=== PATIENT | female | born 1975 | race Caucasian/White ===

== ENCOUNTER 2017-03-06 12:21 | Observation (INO) | payer BC ==
[2017-03-06 13:26] LABS: Hematocrit 43 % (35-47); Hemoglobin 14.5 g/dl (12.0-16.0); Mean Corpuscular HGB Conc 34 g/dl (31-36); Mean Corpuscular Hemoglobin 30 pg (27-31); Mean Corpuscular Volume 88 fL (80-97); Mean Platelet Volume 10 um3 (7.4-10.4); Red Cell Distribution Width 13 % (10.5-15); White Blood Count 6.5 10^3/ul (3.5-10.8)
[2017-03-06 13:34] LABS: Urine Bilirubin Negative (Negative); Urine Glucose 3+(>=500 mg/dL) (Negative); Urine Nitrite Negative (Negative)
[2017-03-06 13:39] LABS: Albumin 3.8 g/dL (3.2-5.2); Calcium 9.5 mg/dL (8.6-10.3); EGFR African American 62.5 (>60); EGFR Non-African American 48.6 (>60); Globulin 3.1 g/dL (2-4); Magnesium 1.6 mg/dL (1.9-2.7); Potassium 4.5 mmol/L (3.5-5.0); Total Bilirubin 0.4 mg/dL (0.2-1.0); Total Protein 6.9 g/dL (6.4-8.9)
[2017-03-06 13:50] LABS: Troponin I 0.09 ng/mL (<0.04)
[2017-03-06 13:56] LABS: TSH (Thyroid Stimulating Horm) 3.4 mcIU/mL (0.34-5.60)
[2017-03-06] MEDS ORDERED: Magnesium Sulfate 2 GM IV* 2 GM/50 ML BAG IVPB ONE (14:04)
[2017-03-06] MEDS ORDERED: Aspirin Low Dose CHEW TAB* 81 MG PO ONE (14:05)
--- NOTE | 2017-03-06 14:19 | ED ---
Alan Chiu Billy, scribed for Sherry Escudero MD on 03/06/17 at 1347 . Complex/Multi-Sys Presentation - HPI Summary HPI Summary: Patient is a 41 year-old female coming to [facility] for evaluation of fatigue and difficulty concentrating. He states that his symptoms started approximately 1 week ago with a headache, which has since resolved. She had concerns for dehydration so she reduced caffeine intake and increased fluids. She started to feel a little better, but symptoms have returned over the last 24 hours. Pt states feel lightheaded and had difficulty concentrating. No syncope. She states that she has not had much to eat or drink today. Denies fevers, chills, rashes. Denies chest pain or SOB. Denies N/V/D. Patient states that she began Flomax for urinary retention 2 weeks ago, prescribed by her PCP Dr. Schrader, but otherwise has had no recent medication changes. Pt has been taking flomax in the morning and can't remember if her symptoms correlate. Pt has PMH DM, CHF , on estrogen therapy, and mitochondrial genetic dx. Pt has has cath Dr. Faye with no required intervention. Pt does not take anticoagulants. All medications reviewed this visit. - History Of Current Complaint Chief Complaint: EDSyncope Time Seen by Provider: 03/06/17 12:40 Hx Obtained From: Patient Onset/Duration: Gradual Onset, Lasting Days, Still Present Timing: Constant Severity Currently: Moderate Severity Initially: Moderate Location: Negative Aggravating Factor(s): none Alleviating Factor(s): increased fluids, cutting back caffeine Associated Signs And Symptoms: Positive: Weakness, Headache - resolve 1 week, Other - fatigue, difficulty concentrating. Negative: Dizziness, Nausea, Vomiting, Diarrhea - Allergies/Home Medications Allergies/Adverse Reactions: Allergies Allergy/AdvReac Type Severity Reaction Status Date / Time No Known Drug Allergy Allergy Unknown Verified 06/29/16 22:02 Reaction Details environmental Allergy Congestion Uncoded 06/29/16 22:02 PMH/Surg Hx/FS Hx/Imm Hx Endocrine/Hematology History: Reports: Hx Diabetes Denies: Hx Anticoagulant Therapy, Hx Thyroid Disease Cardiovascular History: Reports: Hx Cardiomegaly, Hx Congestive Heart Failure - IDIOPATHIC, Hx Hypertension - WELL CONTROLLED, Hx Valvular Heart Disease - MITRAL REGURG, Other Cardiovascular Problems/Disorders - CARDIOMYOPATHY Denies: Hx Deep Vein Thrombosis, Hx Myocardial Infarction, Hx Pacemaker/ICD Respiratory History: Denies: Hx Asthma, Hx Chronic Obstructive Pulmonary Disease (COPD), Hx Lung Cancer, Hx Pneumonia, Hx Pulmonary Embolism GI History: Denies: Hx Gall Bladder Disease, Hx Gastrointestinal Bleed, Hx Ulcer, Hx Urosepsis History: Reports: Hx Renal Disease - She states that she was told that she had "kidney failure" Denies: Hx Dialysis, Hx Kidney Stones Musculoskeletal History: Denies: Hx Scoliosis Sensory History: Reports: Hx Contacts or Glasses, Hx Hearing Aid - [place] Opthamlomology History: Reports: Hx Contacts or Glasses EENT History: Reports: Hx Hearing Problem, Hx Hearing Aid Neurological History: Denies: Hx Dementia, Hx Headaches, Hx Migraine, Hx Seizures, Hx Transient Ischemic Attacks (TIA), Other Neuro Impairments/Disorders Psychiatric History: Reports: Hx Depression Denies: Hx Anxiety, Hx Panic Disorder, Hx Schizophrenia, Hx Bipolar Disorder - Surgical History Surgery Procedure, Year, and Place: L knee arthroscopy. tonsillectomy. 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 Negative: Fever, Chills Eyes: Negative ENT: Negative Cardiovascular: Negative Negative: Chest Pain Respiratory: Negative Negative: Shortness Of Breath Gastrointestinal: Negative Negative: Vomiting, Diarrhea, Nausea Genitourinary: Negative Musculoskeletal: Negative Skin: Negative Negative: Rash Neurological: Other - lightheaded this morning Positive: Headache - earlier in the week, none at this time, Weakness. Negative : Paresthesia, Numbness, Syncope, Slurred Speech Psychological: Normal All Other Systems Reviewed And Are Negative: Yes Physical Exam Triage Information Reviewed: Yes Vital Signs On Initial Exam: Initial Vitals Temp Pulse Resp BP Pulse Ox 97.3 F 84 17 127/81 100 03/06/17 12:22 03/06/17 12:22 03/06/17 12:22 03/06/17 12:22 03/06/17 12:22 Vital Signs Reviewed: Yes Appearance: Positive: Well-Appearing - tired appearing, No Pain Distress, Well- Nourished Skin: Positive: Warm, Skin Color Reflects Adequate Perfusion, Dry Eyes: Positive: Normal, EOMI, LIVAN ENT: Positive: Hearing grossly normal, Pharynx normal, TMs normal Neck: Positive: Supple, Nontender, No Lymphadenopathy Respiratory/Lung Sounds: Positive: Clear to Auscultation, Breath Sounds Present. Negative: Wheezes Cardiovascular: Positive: Normal, RRR. Negative: Murmur Abdomen Description: Positive: Nontender, No Organomegaly, Soft Musculoskeletal: Positive: Normal, Strength/ROM Intact Neurological: Positive: Normal, Sensory/Motor Intact, Alert, Oriented to Person Place, Time - [place] Coma Scale Coma Scale Total: 15 Diagnostics - Vital Signs Vital Signs Temp Pulse Resp BP Pulse Ox 03/06/17 12:22 97.3 F 84 17 127/81 100 - Laboratory Lab Results: Lab Results 03/06/17 03/06/17 03/06/17 Range/Units 13:05 13:05 13:20 WBC 6.5 (3.5-10.8) 10^3/ul RBC 4.90 (4.0-5.4) 10^6/ul Hgb 14.5 (12.0-16.0) g/dl Hct 43 (35-47) % MCV 88 (80-97) fL MCH 30 (27-31) pg MCHC 34 (31-36) g/dl RDW 13 (10.5-15) % Plt Count 191 (150-450) 10^3/ul MPV 10 (7.4-10.4) um3 Neut % (Auto) 58.9 (38-83) % Lymph % (Auto) 29.1 (25-47) % Ashley % (Auto) 10.0 H (1-9) % Eos % (Auto) 1.4 (0-6) % Baso % (Auto) 0.6 (0-2) % Absolute Neuts (auto) 3.8 (1.5-7.7) 10^3/ul Absolute Lymphs (auto) 1.9 (1.0-4.8) 10^3/ul Absolute Monos (auto) 0.7 (0-0.8) 10^3/ul Absolute Eos (auto) 0.1 (0-0.6) 10^3/ul Absolute Basos (auto) 0 (0-0.2) 10^3/ul Absolute Nucleated RBC 0 10^3/ul Nucleated RBC % 0.1 Sodium 130 L (133-145) mmol/L Potassium 4.5 (3.5-5.0) mmol/L Chloride 100 L (101-111) mmol/L Carbon Dioxide 24 (22-32) mmol/L Anion Gap 6 (2-11) mmol/L BUN 22 (6-24) mg/dL Creatinine 1.22 H (0.51-0.95) mg/dL Est GFR ( Amer) 62.5 (>60) Est GFR (Non-Af Amer) 48.6 (>60) BUN/Creatinine Ratio 18.0 (8-20) Glucose 234 H (70-100) mg/dL Calcium 9.5 (8.6-10.3) mg/dL Magnesium 1.6 L (1.9-2.7) mg/dL Total Bilirubin 0.40 (0.2-1.0) mg/dL AST 24 (13-39) U/L ALT 29 (7-52) U/L Alkaline Phosphatase 41 (34-104) U/L Total Creatine Kinase 122 (10-223) U/L Troponin I Pending Total Protein 6.9 (6.4-8.9) g/dL Albumin 3.8 (3.2-5.2) g/dL Globulin 3.1 (2-4) g/dL Albumin/Globulin Ratio 1.2 (1-3) TSH Pending Urine Color Yellow Urine Appearance Clear Urine pH 5.0 (5-9) Ur Specific [place] 1.012 (1.010-1.030) Urine Protein Negative (Negative) Urine Ketones Negative (Negative) Urine Blood Negative (Negative) Urine Nitrate Negative (Negative) Urine Bilirubin Negative (Negative) Urine Urobilinogen Negative (Negative) Ur Leukocyte Esterase Negative (Negative) Urine Glucose 3+(>=500 mg/dl) H (Negative) Result Diagrams: 03/06/17 13:05 03/06/17 13:05 Lab Statement: Any lab studies that have been ordered have been reviewed, and results considered in the medical decision making process. - EKG 1229 EKG Interpretation: NSR 80 bpm EKG Comparison: Other - Improved T-waves laterally compared to 08/06/15 EKG. Re-Evaluation - Re-Evaluation First Eval Re-Evaluation Time: 13:54 Change: Unchanged Comment: EKG and lab results reviewed with the patient. She agrees with the plan for admission to hospitalist services. Will give ASA, Magnesium - pt states is on magnesium supplements Complex Multi-Symp Course/Dx Assessment/Plan: Pt presents with complatins of fatigue, weakness, and difficulty concentrating. Pt report lightheadedness, no syncope. No cp, sob. Will check EKG. CXR. labs. gentle IVF. reassess. Pt comfortable and in agreement with plan. recommend flomax at nighttime - Diagnoses Provider Diagnoses: Elevated troponin, Hypomagnesemia, Fatigue - Physician Notifications Discussed Care Of Patient With: Dr. Vergara (hospitalist) at 1400: accepts admission - observation Instructed by Provider To: Admit As Observation Discharge - Discharge Plan Condition: Stable Disposition: ADMITTED TO [facility] Referrals: Tashia Schrader MD [Primary Care Provider] - The documentation as recorded by the Alan givens Billy accurately reflects the service I personally performed and the decisions made by , Sherry Escudero MD.
[2017-03-06] MEDS ORDERED: Acetaminophen TAB* 325 MG PO PRN (14:31)
[2017-03-06] MEDS ORDERED: Dextrose 50% Syringe 50 ML* 25 GM/50 ML SYRINGE IV PUSH PRN (14:31)
[2017-03-06] MEDS ORDERED: HYDROcodone/ACETAMIN 5-325 MG* 1 TAB PO PRN (14:36)
[2017-03-06] MEDS ORDERED: Albuterol 2.5 MG/3 ML NEB.SOL* (0.083%) INH PRN (14:41)
[2017-03-06 16:26] LABS: Troponin I 0.1 ng/mL (<0.04)
[2017-03-06] MEDS: Insulin LISPRO* 1 UNITS UNIT SUBCUT SCH (17:22)
--- NOTE | 2017-03-06 18:44 | HP ---
HISTORY AND PHYSICAL: DATE OF ADMISSION: 03/06/17 PRIMARY CARE PROVIDER: Dr. Schrader. ATTENDING PHYSICIAN WHILE IN THE HOSPITAL: Dr. Bayron Vergara *(report being dictated by Kristofer Arevalo NP) CHIEF COMPLAINT: 1. Dizziness. 2. Near syncope. HISTORY OF PRESENT ILLNESS: Ms. Hou is a 41-year-old transgender patient, who identifies as female, who comes into the ED today stating that she started out last week with having a headache on Sunday, describes it in front of her head and also in the back of her neck as well that radiated up around the back of her scalp and in the front of her head, describes it is not the worst headache of her life. She has been taking Maxalt as she has a history of migraines and this was helping. The patient states that she was feeling better by weekend and throughout the weekend; however, unfortunately on Sunday, Sunday , and today, she got progressively worse again, she had this discomfort in the front of her head, mostly now by her temples. She says that now today, she also felt lightheaded and dizzy, particularly with position change. She was recently started on Flomax 2 to 3 weeks ago and does state that she felt like she was almost going to faint today. She thought maybe her blood sugar was low , she tried taking food; it did not help. She called her primary, who referred her here to the hospital. She denies having any chest pain, no shortness of breath. No abdominal pain. No nausea, vomiting or any diarrhea. Says she has been eating and drinking like she should and says there have been much fluctuations in her weight, she has lost about 3 to 4 pounds in the last several weeks. She was certainly concerned because of this episode where she almost fainted today, again there was no prodrome to this and her primary referred her to the ER. She was evaluated in the ER, it was noted that her troponin was mildly elevated, although it appears to be only mildly elevated, but because of the history, the fact that she has a history of cardiomyopathy, diabetes, asthma, and she has mitochondrial disease, the patient was referred to the hospitalist service for further evaluation and possible admission. PAST MEDICAL HISTORY: Significant for: 1. Cardiomyopathy which was nonischemic. 2. Asthma. 3. Transgender. 4. Diabetes. 5. Mitochondrial disease. PAST SURGICAL HISTORY: She has had: 1. Tonsillectomy. 2. Orchiectomy, left side. 3. Knee arthroscopy. 4. Heart catheterization. MEDICATIONS: Home meds according to the list that we were able to obtain include: 1. Flomax 0.4 mg p.o. daily. 2. Spironolactone 25 mg p.o. daily. 3. Lyrica 50 mg p.o. b.i.d. 4. [place]-3 fatty acids 2000 mg p.o. daily. 5. Lopressor 100 mg p.o. b.i.d. 6. Magnesium oxide 400 mg p.o. daily. 7. Lisinopril 40 mg daily. 8. Lantus 16 units subcu daily. 9. [place] 1 tablet p.o. every 6 hours as needed. 10. Glimepiride 4 mg p.o. daily. 11. Flonase 1 spray both nares daily as needed. 12. Estradiol 2 mg p.o. daily. 13. Trulicity 1.5 mg subcu every Sunday. 14. Coenzyme Q10 400 mg p.o. daily. ALLERGIES TO MEDICATIONS: Include no known drug allergies. FAMILY HISTORY: Mother has a history of hypertension, mitral valve prolapse. Father has a history of [place], hypertension, diabetes, and Parkinson's. SOCIAL HISTORY: The patient does not smoke, rarely drinks alcohol. She is . Surrogate decision maker is her sister, Kellen. REVIEW OF SYSTEMS: There is no documented fever. There was no significant weight change. No double vision. There is no ear discharge. No rhinorrhea. No sore throat, no thyroid enlargement. Denies having any chest pain. There is no orthopnea, no nocturnal dyspnea. There was no abdominal pain. No nausea , no vomiting. No dysuria, no frequency. There was no loss of consciousness. No pruritus, no skin ulcerations. Review of 14 systems completed, all others negative. PHYSICAL EXAMINATION GENERAL: At this time, Ms. Hou is a 41-year-old female patient. She is sitting in the ER stretcher, does not appear to be in any acute distress. VITAL SIGNS: Reveal blood pressure 127/81 with pulse 84, respirations 17, O2 sat 100%, temperature 97.3. HEENT: Head is atraumatic, normocephalic. Eyes: EOMs are intact. Sclerae were anicteric and not pale. Throat: Oral mucosa appears to be moist. No oropharyngeal erythema. NECK: Supple. LUNGS: Clear to auscultation bilaterally. No wheezes, rales, or rhonchi. HEART: Sounds S1, S2. Regular rate and rhythm. No murmurs, rubs, or gallops. ABDOMEN: Soft, flat, nontender. Bowel sounds present. EXTREMITIES: Pulses 2+ throughout. Able to move all 4 extremities with 5/5 strength. NEUROLOGIC: The patient is awake, is alert, is oriented x3. Commanding [employer] were equal. No gross focal deficits. SKIN: Intact. DIAGNOSTIC STUDIES/LAB DATA: Today revealed WBC 6.5, RBC of 4.90, hemoglobin 14.5, hematocrit 43, platelet count 191. Sodium 130, potassium 4.5, chloride of 100, bicarb 24, BUN 22, creatinine of 1.22, glucose 234, calcium 9.5, mag 1.6. Total bili 0.4, AST 24, ALT 29, alk phos 41. CK 122. Troponin 0.09. Albumin of 3.8. Creatinine appears to be at baseline and the troponin appears to be at baseline too. Urine showed 3+ glucose. There was an EKG obtained today as well, which revealed what appears to be a left bundle branch block with inverted T- waves in aVL, lead I, with LVH. It was reviewed to the previous EKG, which appears to be similar except there are no longer inversions in V5 and V6. Old medical records were reviewed. There was an echo done December 2016, shows an EF of 25% to 30%. Old medical records were reviewed. ASSESSMENT AND PLAN: Ms. Hou is a 41-year-old female patient coming into the ER today with complaints of feeling lightheaded and dizziness with associated headache. She will be admitted under observation status for: 1. Near syncope. At this point, it could be orthostasis secondary to the recent starting on Flomax. My plan will be to go ahead and check orthostatic blood pressures. For now, I would hold the Flomax, I am going to hold it now any way, and we will get the orthostatic vital signs. If she is not orthostatic , we can restart it. I am going to place her on the telemetry, we will cycle her troponins, and we will continue to follow. I do not think there is a need to repeat the echo at that point as she just had one in December and we will continue to monitor. If she is orthostatic, I would give her a small amount of fluids over a long period of time, probably 500 cc over 5 hours and we will continue to follow. 2. Cardiomyopathy. Continue medications as prescribed for the time being. If there is orthostasis, I will hold the spironolactone, but we will continue for now. 3. History of diabetes. Will be on lispro sliding scale. 4. Asthma. P.r.n. albuterol as been ordered. 5. Mitochondrial disease. She can follow with her specialist in the [facility]. 6. DVT prophylaxis. We will go ahead and place the patient on heparin subcu. 7. Code status. Full code. 8. Fluids, electrolytes, nutrition. She can have a consistent carb diet. 9. Hypomagnesemia. It is being replaced. 10. Elevated troponin. This appears to be chronically elevated, probably from chronic kidney disease. We will follow these. TIME SPENT: On this admission was approximately 60 minutes, greater than half the time was spent [id number] with the patient obtaining my history and physical; the other half of the time was spent going over the plan of care with patient and implementing plan of care. I did discuss the plan of care with my attending, Dr. Vergara; he is in agreement. KRISTOFER AREVALO NP CC: Dr. Schrader* [id number]/[facility] #: [id number] MARGA
[2017-03-06] MEDS: Pregabalin CAP(*) 50 MG PO SCH (21:08)
[2017-03-06] MEDS: Metoprolol Tartrate TAB* 100 MG TAB PO SCH (21:08)
[2017-03-06] MEDS: Heparin VIAL(*) 5000 UNITS/ML VIAL (FIVE THOUSAND) SUBCUT SCH (21:11)
[2017-03-07 05:14] LABS: BUN/Creatinine Ratio 16.4 (8-20); Calcium 9.1 mg/dL (8.6-10.3); EGFR African American 59.1 (>60); Potassium 4.5 mmol/L (3.5-5.0)
[2017-03-07 05:16] LABS: Hematocrit 41 % (35-47); Hemoglobin 13.9 g/dl (12.0-16.0); Mean Corpuscular HGB Conc 34 g/dl (31-36); Mean Corpuscular Hemoglobin 30 pg (27-31); Mean Corpuscular Volume 89 fL (80-97); Mean Platelet Volume 10 um3 (7.4-10.4); Red Blood Count 4.64 10^6/ul (4.0-5.4); Red Cell Distribution Width 13 % (10.5-15); White Blood Count 7.1 10^3/ul (3.5-10.8)
[2017-03-07] MEDS: Heparin VIAL(*) 5000 UNITS/ML VIAL (FIVE THOUSAND) SUBCUT SCH (05:27)
[2017-03-07 07:50] VITALS: BP 113/76
[2017-03-07] MEDS ORDERED: Magnesium Oxide TAB* 400 MG PO SCH (09:00)
[2017-03-07] MEDS ORDERED: Lisinopril TAB* 10 MG PO SCH (09:00)
[2017-03-07] MEDS ORDERED: COENZYME Q10 400 MG PO SCH (09:00)
[2017-03-07] MEDS ORDERED: Insulin GLARGINE(*) 1 UNITS UNIT SUBCUT SCH (09:00)
[2017-03-07] MEDS ORDERED: Spironolactone TAB* 25 MG PO SCH (09:00)
[2017-03-07] MEDS: Pregabalin CAP(*) 50 MG PO SCH (09:33)
[2017-03-07] MEDS: Metoprolol Tartrate TAB* 100 MG TAB PO SCH (09:34)
[2017-03-07] MEDS: Insulin LISPRO* 1 UNITS UNIT SUBCUT SCH (09:39)
--- NOTE | 2017-03-07 23:13 | DS ---
DISCHARGE SUMMARY: DATE OF ADMISSION: 03/06/17 DATE OF DISCHARGE: 03/07/17 PRIMARY CARE PROVIDER: Dr. Schrader. UROLOGIST: Dr. Verma. DISCHARGE DIAGNOSES: 1. Near syncopal episode, likely secondary to tamsulosin. 2. Borderline troponin elevation, likely secondary to known cardiomyopathy. SECONDARY DIAGNOSES: 1. Non-ischemic cardiomyopathy with ejection fraction 25% to 30%. 2. Asthma. 3. Transgender individual, on estradiol replacement. 4. Type 2 diabetes. 5. Diagnosis of mitochondrial disease. 6. Status post tonsillectomy. 7. Status post orchiectomy. 8. Status post knee arthroscopy. MEDICATION LIST: 1. CoQ10 100 mg p.o. daily. 2. Trulicity 1.5 mg subcutaneously on Fridays. 3. Estradiol 2 mg p.o. daily. 4. Fluticasone 1 spray to both nares daily as needed for allergies. 5. Glimepiride 4 mg p.o. daily. 6. Hydrocodone/acetaminophen 5/325 mg 1 tablet p.o. q.6 hours p.r.n. pain. 7. Lantus 16 units subcutaneously daily. 8. Lisinopril 40 mg p.o. daily. 9. Magnesium oxide 400 mg p.o. daily. 10. Metoprolol 100 mg p.o. b.i.d. 11. Fish oil 2000 mg p.o. daily. 12. Lyrica 50 mg p.o. b.i.d. 13. Aldactone 25 mg p.o. daily. Tamsulosin was discontinued. New medication: Alfuzosin 10 mg p.o. after dinner. HOSPITAL COURSE: Ms. Hou is a 41-year-old lady with a past medical history as stated above that presented to the emergency room complaining of headache, fatigue, lightheadedness particularly with position change. The patient had symptoms of urinary frequency, hesitation, and had been started on tamsulosin as outpatient 2 to 3 weeks ago. She had improvement of her urinary symptoms but the lightheadedness started then. As the urinary symptoms were improving, she decided to continue the medication. She was seen by Dr. Verma as outpatient and was found to have no postvoid residual and told to continue medication. By yesterday, the symptoms became worse and she came to the emergency room for further evaluation. The patient's laboratory tests were basically unchanged from her baseline. She had minimally elevated troponins ranging from 0.08 to 0.10, but this is not far from her usual troponins. She had no complaints of chest pain and no new EKG changes. An echocardiogram had been performed in December 2016 and at that time, it has shown an ejection fraction of 25% to 30% with global hypokinesis. After reviewing the patient's symptoms, the impression is that they are associated with tamsulosin. I did discuss the case with Dr. Verma and he agreed that this is most likely the cause. His recommendation was to discontinue tamsulosin and to start alfuzosin as it has a lower rate of orthostatic hypotension and lightheadedness. The patient was advised about her new medication and if her urinary symptoms returned, she will follow up with Dr. Verma. If the lightheadedness persists , she will follow up with Dr. Schrader. She is medically stable for discharge at this time. PHYSICAL EXAMINATION: Vital Signs: Temperature 98.2, heart rate is 79, respiratory rate is 16, oxygen saturation 99% on room air, blood pressure is 113 /76. Orthostatic vital signs were normal. General: The patient is a pleasant , middle-aged lady, sitting up in bed, in no acute distress. CVS: Normal S1, S2. Regular rate and rhythm. Chest: Breath sounds present bilaterally with no added sounds. Extremities: No edema. Neuro: Alert, awake, oriented x3. Able to move all 4 extremities. DIET: Heart-healthy diet. ACTIVITIES: As tolerated. DISPOSITION: To home. STATUS WHILE IN THE HOSPITAL: Observation. Please keep in mind that this is a summarized version of this patient's hospital stay. If you need more information, please feel free to call me at or please obtain the full medical records. TIME SPENT: Approximately 45 minutes was spent to complete this discharge. CC: Dr. Schrader; Dr. Verma* [id number]/[facility] #: [id number] MTDD
== END 2017-03-07 13:15 | disposition home or self-care (01) ==
LOC: ED 12:21 → MEDTELE 14:29
PROVIDERS: ADMIT Internal Medicine; ATTEND Internal Medicine
DX: R55 Syncope and collapse (principal); R74.8 Abnormal levels of other serum enzymes; R42 Dizziness and giddiness; I25.5 Ischemic cardiomyopathy; J45.909 Unspecified asthma, uncomplicated; E11.9 Type 2 diabetes mellitus without complications; Z79.4 Long term (current) use of insulin; E88.40 Mitochondrial metabolism disorder, unspecified; R94.31 Abnormal electrocardiogram [ECG] [EKG]; F64.8 Other gender identity disorders; Z79.899 Other long term (current) drug therapy
CPT/HCPCS: 36415; 80048; 80053; 81003; 82550; 82947; 83036; 83735; 84443; 84484; 85025; 93005; 96372; 99284; A9270-GY; G0378; J1644

== ENCOUNTER 2017-08-17 16:32 | Emergency (ER) | payer BC ==
[2017-08-17 17:06] VITALS: BP 106/71
--- NOTE | 2017-08-17 17:36 | UC ---
Ear Complaint HPI - HPI Summary HPI Summary: Patient presents with past medical history of cerumen impaction, and she feels like both of her ears are plugged with wax. She states that she has some discomfort of the right ear, but that is no unusual when then get plugged. She denies any fever, chills, or canal trauma or drainage. - History of Current Complaint Chief Complaint: UCEar Stated Complaint: CLOGGED EARS Time Seen by Provider: 08/17/17 17:12 Hx Obtained From: Patient Hx Last Menstrual Period: None--not applicable. ?: No Onset/Duration: Gradual Onset, Lasting Days Severity Initially: Mild Severity Currently: Mild Aggravating Factors: Nothing Alleviating Factors: Nothing - Allergies/Home Medications Allergies/Adverse Reactions: Allergies Allergy/AdvReac Type Severity Reaction Status Date / Time No Known Drug Allergy Allergy Unknown Verified 08/17/17 17:06 Reaction Details environmental Allergy Congestion Uncoded 08/17/17 17:06 PMH/Surg Hx/FS Hx/Imm Hx Previously Healthy: Yes Other History Of: Negative For: HIV, Hepatitis B, Hepatitis C, Anticoagulant Therapy - Surgical History Surgical History: Yes Surgery Procedure, Year, and Place: L knee arthroscopy. tonsillectomy. 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 - Family History Known Family History: Positive: Cardiac Disease, Hypertension, Diabetes, Other - Brain cancer, Parkinson's - Social History Occupation: Disabled Lives: Alone Alcohol Use: Rare Substance Use Type: None Smoking Status (MU): Never Smoked Tobacco - Immunization History Most Recent Influenza Vaccination: "probably last year" Most Recent Tetanus Shot: unable to determine Most Recent Pneumonia Vaccination: "never had one" Review of Systems Constitutional: Negative Skin: Negative Eyes: Negative ENT: Other - canal cerumen Respiratory: Negative Cardiovascular: Negative Gastrointestinal: Negative Genitourinary: Negative Motor: Negative Neurovascular: Negative Musculoskeletal: Negative All Other Systems Reviewed And Are Negative: Yes Physical Exam Triage Information Reviewed: Yes Appearance: Well-Appearing Vital Signs: Initial Vital Signs Temp 97.2 F 08/17/17 17:02 Pulse 78 08/17/17 17:02 Resp 18 08/17/17 17:02 BP 106/71 08/17/17 17:02 Pulse Ox 100 08/17/17 17:02 Vital Signs Reviewed: Yes Eye Exam: Normal ENT Exam: Normal ENT: Positive: Other: - bilateral canals with cerumen Dental Exam: Normal Neck exam: Normal Neck: Positive: 1 Respiratory Exam: Normal Cardiovascular Exam: Normal Abdominal Exam: Normal Musculoskeletal Exam: Normal Skin Exam: Normal Ear Complaint Course/Dx - Course Course Of Treatment: Patient presents with past medical history of cerumen impaction, was was seen in both canals, no perforations noted. The canals were irrigated without incidence and the patient was discharged home in stable condition. - Differential Dx/Diagnosis Differential Diagnosis/HQI/PQRI: Cerumen Impaction Provider Diagnoses: cerumen impaction Discharge - Discharge Plan Condition: Stable Disposition: HOME Patient Education Materials: Cerumen Impaction (ED) Referrals: Tashia Schrader MD [Primary Care Provider] -
== END 2017-08-17 18:02 | disposition home or self-care (01) ==
LOC: UCEAST 16:32
DX: H61.20 Impacted cerumen, unspecified ear (principal)
CPT/HCPCS: 99213; G0463

== ENCOUNTER 2017-11-15 17:44 | Emergency (ER) | payer SELFPAY ==
--- NOTE | 2017-11-15 21:17 | RAD ---
INDICATION: Left shoulder pain COMPARISON: None TECHNIQUE: Routine frontal, Y and axial views were obtained. FINDINGS: There are no acute bony findings. The a.c. and glenohumeral joints are intact. The soft tissues appear normal. There is a left-sided cardiac pacemaker. IMPRESSION: NEGATIVE EXAMINATION.
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
[2017-11-15] MEDS ORDERED: Ibuprofen TAB* 600 MG PO ONE (22:00)
[2017-11-15 22:17] VITALS: BP 122/76
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
== END 2017-11-15 22:17 | disposition home or self-care (01) ==
LOC: ED 17:44
DX: M25.512 Pain in left shoulder (principal); V49.9XXA Car occupant (driver) (passenger) injured in unspecified traffic accident, initial encounter; Y92.9 Unspecified place or not applicable
CPT/HCPCS: 71046; 93005; 99282; A9270-GY

== ENCOUNTER 2017-12-10 09:37 | Emergency (ER) | payer BC ==
[2017-12-10 09:59] VITALS: BP 122/80
--- NOTE | 2017-12-10 10:16 | UC ---
Ear Complaint HPI - HPI Summary HPI Summary: Patient presents to the with CC of R ear pain x 2 days. Endorses decreased hearing, and pain in the inner ear and slightly over the posterior ear without fevers, sweats, chills or other complaints. Denies recent illness, throat pain , URI symptoms. Otherwise healthy. Denies swimming or getting water in the ears. She is hard of hearing at baseline, but states it has been slightly worse over the last few days. Denies history of ear infections. - History of Current Complaint Chief Complaint: UCEar Stated Complaint: EAR PAIN Time Seen by Provider: 12/10/17 10:04 Hx Obtained From: Patient Hx Last Menstrual Period: None--not applicable. ?: No Onset/Duration: Sudden Onset Severity Initially: Moderate Severity Currently: Moderate Pain Intensity: 5 Pain Scale Used: 0-10 Numeric Associated Signs/Symptoms: Positive: Hearing Loss - Allergies/Home Medications Allergies/Adverse Reactions: Allergies Allergy/AdvReac Type Severity Reaction Status Date / Time MS No Known Drug Allergy Allergy Unknown Verified 12/10/17 09:55 [No Known Drug Allergy] Reaction Details environmental Allergy Congestion Uncoded 12/10/17 09:55 PMH/Surg Hx/FS Hx/Imm Hx Previously Healthy: Yes Other History Of: Negative For: HIV, Hepatitis B, Hepatitis C, Anticoagulant Therapy - Surgical History Surgical History: Yes Surgery Procedure, Year, and Place: L knee arthroscopy. tonsillectomy. 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 - Family History Known Family History: Positive: Cardiac Disease, Hypertension, Diabetes, Other - Brain cancer, Parkinson's - Social History Occupation: Employed Full-time Lives: With Family Alcohol Use: Rare Substance Use Type: None Smoking Status (MU): Never Smoked Tobacco - Immunization History Most Recent Influenza Vaccination: "probably last year" Most Recent Tetanus Shot: unable to determine Most Recent Pneumonia Vaccination: "never had one" Review of Systems Constitutional: Negative Skin: Negative ENT: Ear Ache - R Respiratory: Negative Cardiovascular: Negative Motor: Negative Neurovascular: Negative Neurological: Negative Psychological: Negative Is Patient Immunocompromised?: No All Other Systems Reviewed And Are Negative: Yes Physical Exam Triage Information Reviewed: Yes Appearance: Well-Appearing, Well-Nourished Vital Signs: Initial Vital Signs Temp 98 F 12/10/17 09:56 Pulse 86 12/10/17 09:56 Resp 17 12/10/17 09:56 BP 122/80 12/10/17 09:56 Pulse Ox 99 12/10/17 09:56 Vital Signs Reviewed: Yes Eye Exam: Normal Eyes: Positive: Conjunctiva Clear ENT: Positive: TM red - no bulging, exudates or signs of Otitis media. Slight drainage in the ear canal. TM intact.. Negative: TM bulging, TM dull Neck exam: Normal Neck: Positive: Supple Respiratory Exam: Normal Respiratory: Positive: Chest non-tender, Lungs clear Cardiovascular Exam: Normal Cardiovascular: Positive: RRR Musculoskeletal Exam: Normal Musculoskeletal: Positive: Strength Intact Neurological Exam: Normal Neurological: Positive: Alert Psychological: Positive: Normal Response To Family Skin Exam: Normal Ear Complaint Course/Dx - Course Course Of Treatment: no bulging, exudates or signs of Otitis media. Slight drainage in the ear canal. TM intact. Possible early swimmer ear. Ofloxacin drops given and allergy medication encouraged. - Differential Dx/Diagnosis Provider Diagnoses: otitis externa Discharge - Discharge Plan Condition: Stable Disposition: HOME Prescriptions: Ofloxacin 0.3% OTIC.JOSESITO* [Floxin 0.3% OTIC.JOSESITO*] 1 drop .SEE ORDER BID #1 [id number] Patient Education Materials: Otitis Externa (ED) Referrals: Tashia Schrader MD [Primary Care Provider] - Additional Instructions: Allergy medication daily for at least 5 days Over the counter swimmers ear if the antibiotic drops are too expensive Tylenol 650mg three times daily for discomfort
== END 2017-12-10 10:16 | disposition home or self-care (01) ==
LOC: UCEAST 09:37
DX: H60.91 Unspecified otitis externa, right ear (principal)
CPT/HCPCS: 99212; G0463

== ENCOUNTER 2018-01-02 16:28 | Emergency (ER) | payer BC ==
[2018-01-02 19:18] LABS: ABS Basophils 0.1 10^3/ul (0-0.2); ABS Eosinophils 0.1 10^3/ul (0-0.6); ABS Lymphocytes 2.4 10^3/ul (1.0-4.8); ABS Monocytes 0.7 10^3/ul (0-0.8); ABS Neutrophils 4.2 10^3/ul (1.5-7.7); ABS Nucleated RBC 0 10^3/ul; Eosinophil % 1.5 % (0-6); Hematocrit 46 % (35-47); Hemoglobin 15.7 g/dl (12.0-16.0); Lymphocyte % 31.7 % (25-47); Mean Corpuscular HGB Conc 34 g/dl (31-36); Mean Corpuscular Hemoglobin 30 pg (27-31); Mean Corpuscular Volume 88 fL (80-97); Mean Platelet Volume 9 um3 (7.4-10.4); Nucleated Red Blood Cells % 0.1; Platelet Count 207 10^3/ul (150-450); Red Cell Distribution Width 13 % (10.5-15); White Blood Count 7.4 10^3/ul (3.5-10.8)
[2018-01-02 19:19] LABS: Urine Appearance Clear; Urine Blood Negative (Negative); Urine Color Yellow; Urine Ketones Negative (Negative); Urine Protein Negative (Negative); Urine Urobilinogen Negative (Negative)
[2018-01-02 19:27] LABS: INR 0.89 (0.77-1.02)
--- NOTE | 2018-01-02 19:27 | RAD ---
INDICATION: Chest pain COMPARISON: November 15, 2017 TECHNIQUE: An AP portable view obtained at 1855 hours is submitted. FINDINGS: Bones/Soft Tissues: There are no acute bony findings. Cardiomediastinal: The cardiomediastinal silhouette is normal. Lungs: There are no infiltrates. Pleura: There are no pleural effusions. Other: None IMPRESSION: NO ACTIVE DISEASE.
[2018-01-02] MEDS ORDERED: Ondansetron INJ* 2 MG/ML VIAL IV ONE (19:28)
[2018-01-02] MEDS ORDERED: Morphine INJ* 4 MG/ML 1 ML SYRINGE (NEW SYRINGE VERSION) IV ONE (19:29)
[2018-01-02 19:36] LABS: EGFR Non-African American 44.9 (>60)
[2018-01-02] MEDS ORDERED: NS 0.9% 1000 ML* 1,000 ML IV ONE (19:44)
--- NOTE | 2018-01-02 21:15 | ED ---
Denise Chiu Gabriel, scribed for Ramonita Hdez MD on 01/02/18 at 1941 . HPI Chest Pain - HPI Summary HPI Summary: This patient is a 42 year old F presenting to [facility] accompanied by her family with a chief complaint of CP since 1300 this afternoon. The patient rates the pain 9/10 in severity. Patient reports nausea and dizziness. Pt denies diarrhea. Pt had an ICD placed in March of last year and her last heart cath was in the last two years. Hx non ischemic idiopathic cardiomyopathy. - History of Current Complaint Chief Complaint: EDChestPainROMI Time Seen by Provider: 01/02/18 19:20 Hx Obtained From: Patient Hx Last Menstrual Period: None--not applicable. Onset/Duration: Still Present Timing: Constant Initial Severity: Severe Current Severity: Severe Pain Intensity: 9 Pain Scale Used: 0-10 Numeric Chest Pain Location: Diffuse Chest Pain Radiates: No Associated Signs and Symptoms: Positive: Negative - diarrhea, Dizziness, Nausea - Allergy/Home Medications Allergies/Adverse Reactions: Allergies Allergy/AdvReac Type Severity Reaction Status Date / Time No Known Allergies Allergy Verified 01/02/18 16:39 Home Medications: Home Medications Acetaminophen [Tylenol Extra Strength] 500 mg PO DAILY PRN 01/02/18 [History Confirmed 01/02/18] Butalb/Acetamin/Caff TAB* [Fioricet TAB*] 1 tab PO Q6H PRN 01/02/18 [History Confirmed 01/02/18] Insulin LISPRO* [HumaLOG*] 0 units SUBCUT DAILY 01/02/18 [History Confirmed ] Lisinopril TAB* [Prinivil TAB*] 20 mg PO DAILY 01/02/18 [History Confirmed 01/02] Metoprolol Succinate XL TAB* [Toprol XL TAB*] 100 mg PO DAILY 01/02/18 [History Confirmed 01/02/18] Rizatriptan (NF) [Maxalt-Operator Catalyst Concentration (NF)] 10 mg PO DAILY 01/02/18 [History Confirmed ] Sertraline* [Zoloft*] 100 mg PO DAILY 01/02/18 [History Confirmed 01/02/18] PMH/Surg Hx/FS Hx/Imm Hx Endocrine/Hematology History: Reports: Hx Diabetes - iddm Denies: Hx Anticoagulant Therapy, Hx Thyroid Disease Cardiovascular History: Reports: Hx Cardiomegaly, Hx Congestive Heart Failure - IDIOPATHIC, Hx Hypertension - WELL CONTROLLED, Hx Pacemaker/ICD, Hx Valvular Heart Disease - MITRAL REGURG, Other Cardiovascular Problems/Disorders - CARDIOMYOPATHY Denies: Hx Deep Vein Thrombosis, Hx Myocardial Infarction Respiratory History: Denies: Hx Asthma, Hx Chronic Obstructive Pulmonary Disease (COPD), Hx Lung Cancer, Hx Pneumonia, Hx Pulmonary Embolism GI History: Denies: Hx Gall Bladder Disease, Hx Gastrointestinal Bleed, Hx Ulcer, Hx Urosepsis History: Reports: Hx Renal Disease - She states that she was told that she had "kidney failure" Denies: Hx Dialysis, Hx Kidney Stones Musculoskeletal History: Denies: Hx Scoliosis Sensory History: Reports: Hx Contacts or Glasses, Hx Hearing Aid, Hx Hearing Problem Opthamlomology History: Reports: Hx Contacts or Glasses Neurological History: Denies: Hx Dementia, Hx Headaches, Hx Migraine, Hx Seizures, Hx Transient Ischemic Attacks (TIA), Other Neuro Impairments/Disorders Psychiatric History: Reports: Hx Depression Denies: Hx Anxiety, Hx Panic Disorder, Hx Schizophrenia, Hx Bipolar Disorder - Surgical History Surgery Procedure, Year, and Place: L knee arthroscopy. tonsillectomy. 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 Hx Anesthesia Reactions: No - Immunization History Date of Tetanus Vaccine: 2011 Date of Influenza Vaccine: fall 2012 Infectious Disease History: No Infectious Disease History: Denies: Hx Clostridium Difficile, Hx Hepatitis, Hx Human Immunodeficiency Virus (HIV), Hx of Known/Suspected MRSA, Hx Shingles, Hx Tuberculosis, Hx Known/ Suspected VRE, Hx Known/Suspected VRSA, History Other Infectious Disease, Traveled Outside the [place] in Last 30 Days - Family History Known Family History: Positive: Cardiac Disease, Hypertension, Diabetes, Other - Brain cancer, Parkinson's - Social History Alcohol Use: Rare Hx Substance Use: No Substance Use Type: Reports: None Hx Tobacco Use: No Smoking Status (MU): Never Smoked Tobacco Review of Systems Positive: Chest Pain Positive: Nausea Neurological: Other - dizziness All Other Systems Reviewed And Are Negative: Yes Physical Exam - Summary Physical Exam Summary: VITAL SIGNS: Reviewed. GENERAL: Patient is a well-developed and nourished female who is lying comfortable in the stretcher. Patient is not in any acute respiratory distress. HEAD AND FACE: No signs of trauma. No ecchymosis, hematomas or skull depressions. No sinus tenderness. EYES: PERRLA, EOMI x 2, No injected conjunctiva, no nystagmus. EARS: Hearing grossly intact. Ear canals and tympanic membranes are within normal limits. MOUTH: Oropharynx within normal limits. NECK: Supple, trachea is midline, no adenopathy, no JVD, no carotid bruit, no c- spine tenderness, neck with full ROM. CHEST: Symmetric, no tenderness at palpation LUNGS: Clear to auscultation bilaterally. No wheezing or crackles. CVS: Regular rate and rhythm, S1 and S2 present, no murmurs or gallops appreciated. ABDOMEN: Soft, non-tender. No signs of distention. No rebound no guarding, and no masses palpated. Bowel sounds are normal. EXTREMITIES: FROM in all major joints, no edema, no cyanosis or clubbing. NEURO: Alert and oriented x 3. No acute neurological deficits. Speech is normal and follows commands. SKIN: Dry and warm Triage Information Reviewed: Yes Vital Signs On Initial Exam: Initial Vitals Temp Pulse Resp BP Pulse Ox 98.5 F 78 15 141/87 100 01/02/18 16:34 01/02/18 16:34 01/02/18 16:34 01/02/18 16:34 01/02/18 16:34 Vital Signs Reviewed: Yes Diagnostics - Vital Signs Vital Signs Temp Pulse Resp BP Pulse Ox 01/02/18 16:34 98.5 F 78 15 141/87 100 - Laboratory Lab Results: Lab Results 01/02/18 01/02/18 01/02/18 Range/Units 18:35 19:08 19:08 WBC 7.4 (3.5-10.8) 10^3/ul RBC 5.20 (4.0-5.4) 10^6/ul Hgb 15.7 (12.0-16.0) g/dl Hct 46 (35-47) % MCV 88 (80-97) fL MCH 30 (27-31) pg MCHC 34 (31-36) g/dl RDW 13 (10.5-15) % Plt Count 207 (150-450) 10^3/ul MPV 9 (7.4-10.4) um3 Neut % (Auto) 56.8 (38-83) % Lymph % (Auto) 31.7 (25-47) % [place] % (Auto) 9.1 H (0-7) % Eos % (Auto) 1.5 (0-6) % Baso % (Auto) 0.9 (0-2) % Absolute Neuts (auto) 4.2 (1.5-7.7) 10^3/ul Absolute Lymphs (auto) 2.4 (1.0-4.8) 10^3/ul Absolute Monos (auto) 0.7 (0-0.8) 10^3/ul Absolute Eos (auto) 0.1 (0-0.6) 10^3/ul Absolute Basos (auto) 0.1 (0-0.2) 10^3/ul Absolute Nucleated RBC 0 10^3/ul Nucleated RBC % 0.1 INR (Anticoag Therapy) (0.77-1.02) APTT (26.0-36.3) seconds D-Dimer, Quantitative (Less Than 230) ng/mL Sodium (133-145) mmol/L Potassium (3.5-5.0) mmol/L Chloride (101-111) mmol/L Carbon Dioxide (22-32) mmol/L Anion Gap (2-11) mmol/L BUN (6-24) mg/dL Creatinine (0.51-0.95) mg/dL Est GFR ( Amer) (>60) Est GFR (Non-Af Amer) (>60) BUN/Creatinine Ratio (8-20) Glucose (70-100) mg/dL Lactic Acid (0.5-2.0) mmol/L Calcium (8.6-10.3) mg/dL Magnesium (1.9-2.7) mg/dL Total Bilirubin (0.2-1.0) mg/dL AST (13-39) U/L ALT (7-52) U/L Alkaline Phosphatase (34-104) U/L Troponin I (<0.04) ng/mL C-Reactive Protein (< 5.00) mg/L B-Natriuretic Peptide 44 ( - 100) pg/mL Total Protein (6.4-8.9) g/dL Albumin (3.2-5.2) g/dL Globulin (2-4) g/dL Albumin/Globulin Ratio (1-3) Lipase (11.0-82.0) U/L TSH Beta HCG, Quant Urine Color Yellow Urine Appearance Clear Urine pH 6.0 (5-9) Ur Specific [place] 1.010 (1.010-1.030) Urine Protein Negative (Negative) Urine Ketones Negative (Negative) Urine Blood Negative (Negative) Urine Nitrate Negative (Negative) Urine Bilirubin Negative (Negative) Urine Urobilinogen Negative (Negative) Ur Leukocyte Esterase Negative (Negative) Urine Glucose Negative (Negative) 01/02/18 01/02/18 01/02/18 Range/Units 19:08 19:08 19:08 WBC (3.5-10.8) 10^3/ul RBC (4.0-5.4) 10^6/ul Hgb (12.0-16.0) g/dl Hct (35-47) % MCV (80-97) fL MCH (27-31) pg MCHC (31-36) g/dl RDW (10.5-15) % Plt Count (150-450) 10^3/ul MPV (7.4-10.4) um3 Neut % (Auto) (38-83) % Lymph % (Auto) (25-47) % [place] % (Auto) (0-7) % Eos % (Auto) (0-6) % Baso % (Auto) (0-2) % Absolute Neuts (auto) (1.5-7.7) 10^3/ul Absolute Lymphs (auto) (1.0-4.8) 10^3/ul Absolute Monos (auto) (0-0.8) 10^3/ul Absolute Eos (auto) (0-0.6) 10^3/ul Absolute Basos (auto) (0-0.2) 10^3/ul Absolute Nucleated RBC 10^3/ul Nucleated RBC % INR (Anticoag Therapy) 0.89 (0.77-1.02) APTT 30.7 (26.0-36.3) seconds D-Dimer, Quantitative < 200 (Less Than 230) ng/mL Sodium 133 (133-145) mmol/L Potassium 4.5 (3.5-5.0) mmol/L Chloride 98 L (101-111) mmol/L Carbon Dioxide 27 (22-32) mmol/L Anion Gap 8 (2-11) mmol/L BUN 23 (6-24) mg/dL Creatinine 1.30 H (0.51-0.95) mg/dL Est GFR ( Amer) 57.8 (>60) Est GFR (Non-Af Amer) 44.9 (>60) BUN/Creatinine Ratio 17.7 (8-20) Glucose 177 H (70-100) mg/dL Lactic Acid 2.8 H* (0.5-2.0) mmol/L Calcium 10.1 (8.6-10.3) mg/dL Magnesium 1.6 L (1.9-2.7) mg/dL Total Bilirubin 0.30 (0.2-1.0) mg/dL AST 17 (13-39) U/L ALT 19 (7-52) U/L Alkaline Phosphatase 37 (34-104) U/L Troponin I 0.09 H* (<0.04) ng/mL C-Reactive Protein 5.23 H (< 5.00) mg/L B-Natriuretic Peptide ( - 100) pg/mL Total Protein 6.9 (6.4-8.9) g/dL Albumin 3.9 (3.2-5.2) g/dL Globulin 3.0 (2-4) g/dL Albumin/Globulin Ratio 1.3 (1-3) Lipase 70 (11.0-82.0) U/L TSH Pending Beta HCG, Quant Pending Urine Color Urine Appearance Urine pH (5-9) Ur Specific [place] (1.010-1.030) Urine Protein (Negative) Urine Ketones (Negative) Urine Blood (Negative) Urine Nitrate (Negative) Urine Bilirubin (Negative) Urine Urobilinogen (Negative) Ur Leukocyte Esterase (Negative) Urine Glucose (Negative) Result Diagrams: 01/02/18 19:08 01/02/18 19:08 Lab Statement: Any lab studies that have been ordered have been reviewed, and results considered in the medical decision making process. - Radiology CXR Radiology Interpretation Completed By: Radiologist - no active disease ED physician has reviewed this radiology report. - EKG 16:46 Cardiac Rate: Other Rate EKG Interpretation: paced rhythm at 71 bpm Re-Evaluation - Re-Evaluation First Eval Re-Evaluation Time: 21:02 Change: Unchanged Comment: When I discussed the elevated troponin with the patient she reported this is not unusual for her. She is elevated at baseline. Chest Pain Course/Dx - Course Assessment/Plan: This patient is a 42 year old F presenting to [facility] accompanied by her family with a chief complaint of CP since 1300 this afternoon. The patient rates the pain 9/10 in severity. Patient reports nausea and dizziness. Pt denies diarrhea. Has ICD since March of last year and her last heart cath was in the last two years. Hx non ischemic idiopathic cardiomyopathy. . An EKG reveals paced rhythm at 71 bpm. CXR reveals, per radiologist, no active disease. Test results with no significant abnormalities except for a lactic acid of 2.8 and troponin of .09. In the ED course the patient was given IV fluids, morphine, and zofran. DX atypical CP. Patient will be discharged with prescription for Percocet and follow up from PCP. The patient is agreeable with this plan. - Diagnoses Provider Diagnoses: Atypical chest pain Discharge - Discharge Plan Condition: Stable Disposition: HOME Prescriptions: oxyCODONE/Acetamin 5/325 MG* [Percocet 5/325 TAB*] 1 tab PO Q6H PRN #10 tab MDD 4 PRN Reason: Pain Patient Education Materials: Oxycodone/Acetaminophen (By mouth), Chest Pain (ED ) Referrals: Tashia Schrader MD [Primary Care Provider] - 3 Days Additional Instructions: RETURN TO EMERGENCY DEPARTMENT FOR ANY NEW OR WORSENING SYMPTOMS The documentation as recorded by the Denise givens Gabriel accurately reflects the service I personally performed and the decisions made by , Ramonita Hdez MD.
[2018-01-02 21:36] VITALS: BP 121/76
== END 2018-01-02 21:35 | disposition home or self-care (01) ==
LOC: ED 16:28
DX: R07.89 Other chest pain (principal); R19.7 Diarrhea, unspecified; R11.0 Nausea
CPT/HCPCS: 36415; 71045; 80053; 81003; 83605; 83690; 83735; 83880; 84443; 84484; 84702; 85025; 85379; 85610; 85730; 86140; 93005; 96374; 96375; 99283; J2270; J2405

== ENCOUNTER 2018-05-07 12:56 | Observation (INO) | payer BC, OTHER ==
[2018-05-07] MEDS ORDERED: Nitroglycerin TAB 0.4 MG* 0.4 MG TAB SL ONE (13:31)
[2018-05-07] MEDS ORDERED: Aspirin 81 mg CHEW TAB* 81 MG TAB.CHEW PO ONE (13:31)
[2018-05-07] MEDS: Nitroglycerin 2% OINT* 1 GM PAK TOPICAL ONE ×2 (14:00→14:56)
[2018-05-07 14:03] LABS: ABS Basophils 0 10^3/ul (0-0.2); ABS Eosinophils 0.1 10^3/ul (0-0.6); ABS Lymphocytes 1.8 10^3/ul (1.0-4.8); ABS Monocytes 0.6 10^3/ul (0-0.8); ABS Neutrophils 4.1 10^3/ul (1.5-7.7); ABS Nucleated RBC 0 10^3/ul; Eosinophil % 1.4 % (0-6); Hematocrit 44 % (35-47); Hemoglobin 15.2 g/dl (12.0-16.0); Lymphocyte % 27.2 % (25-47); Mean Corpuscular HGB Conc 35 g/dl (31-36); Mean Corpuscular Hemoglobin 30 pg (27-31); Mean Corpuscular Volume 88 fL (80-97); Mean Platelet Volume 9.5 um3 (7.4-10.4); Nucleated Red Blood Cells % 0.1; Platelet Count 217 10^3/ul (150-450); Red Blood Count 4.99 10^6/ul (4.00-5.40); Red Cell Distribution Width 13 % (10.5-15); White Blood Count 6.7 10^3/ul (3.5-10.8)
[2018-05-07 14:13] LABS: INR 0.93 (0.77-1.02)
--- NOTE | 2018-05-07 14:17 | RAD ---
HISTORY: Chest pain COMPARISONS: January 02, 2018 VIEWS: 1: frontal portable view of the chest at 1:44 PM FINDINGS: LINES AND TUBES: A left-sided AICD pacemaker is noted CARDIOMEDIASTINAL SILHOUETTE: The cardiomediastinal silhouette is normal for portable technique. PLEURA: The costophrenic angles are sharp. No pleural abnormalities are noted. LUNG PARENCHYMA: The lungs are clear. ABDOMEN: The upper abdomen is clear. There is no subphrenic gas. BONES AND SOFT TISSUES: No bone or soft tissue abnormalities are noted. IMPRESSION: NO ACTIVE CARDIOPULMONARY DISEASE.
[2018-05-07 14:34] LABS: EGFR Non-African American 44.5 (>60)
[2018-05-07] MEDS ORDERED: Cetirizine* 10 MG TAB PO PRN (15:40)
--- NOTE | 2018-05-07 15:49 | ED ---
Jason Chiu Angela, scribed for Don Whitehead MD on 05/07/18 at 1325 . HPI Chest Pain - HPI Summary HPI Summary: This pt is a 42 y/o female, transgender, presenting to [facility] c/o chest pain since 12:20 today. Pt reports she didn't feel like herself upon waking up at 09: 00 today. She states she had a headache, nausea, and dizziness. Chest pain is described as sharp and radiates into her left arm. She currently rates her pain 3/10 in severity. Pt has had chest pain in the past and usually her troponin levels are elevated. 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 Denies hx of AL. She states her mother has mitochondrial disease. Her carriage setter is Dr. Faye but she has been seeing a different one in [facility]. She is currently on Metoprolol, Lisinopril, Estradiol, Geoff, Zoloft, Lyrica, Magnesium, Calcium, Trulicity, and Insulin. Pt does not take aspirin daily. She did not take aspirin or nitroglycerin today. Pt denies tobacco use. - History of Current Complaint Chief Complaint: EDChestWallPain Time Seen by Provider: 05/07/18 13:15 Hx Obtained From: Patient Hx Last Menstrual Period: None--not applicable. Onset/Duration: Started Hours Ago, Still Present Timing: Lasting Hours Current Severity: Moderate Pain Scale Used: 0-10 Numeric Chest Pain Location: Mid Sternal Chest Pain Radiates: Yes - Allergy/Home Medications Allergies/Adverse Reactions: Allergies Allergy/AdvReac Type Severity Reaction Status Date / Time No Known Allergies Allergy Verified 01/02/18 16:39 Home Medications: Home Medications Calcium Carbonate/Vitamin D3 [Calcium 500 + Vit D Caplet] 1 each PO DAILY [History Confirmed 05/07/18] Cetirizine* [ZyrTEC 10 MG TAB*] 10 mg PO DAILY PRN 05/07/18 [History Confirmed 05/07/18] Dulaglutide (NF) [Trulicity (NF)] 1.5 mg SC FR 05/07/18 [History Confirmed 05/07] Estradiol (NF) 2 mg PO DAILY 05/07/18 [History Confirmed 05/07/18] Insulin LISPRO* [HumaLOG*] 0 units SUBCUT DAILY 05/07/18 [History Confirmed 01/20] Lisinopril TAB* [Prinivil TAB*] 20 mg PO DAILY 05/07/18 [History Confirmed 05/07] Magnesium Oxide TAB* [MagOx 400 TAB*] 400 mg PO DAILY 05/07/18 [History Confirmed 05/07/18] Metoprolol Succinate XL TAB* [Toprol XL TAB*] 100 mg PO DAILY 05/07/18 [History Confirmed 05/07/18] Pregabalin CAP(*) [Lyrica CAP(*)] 50 mg PO BID 05/07/18 [History Confirmed 05/07] Sertraline* [Zoloft*] 100 mg PO DAILY 05/07/18 [History Confirmed 05/07/18] Spironolactone TAB* [Aldactone TAB*] 25 mg PO DAILY 05/07/18 [History Confirmed 05/07/18] PMH/Surg Hx/FS Hx/Imm Hx Previously Healthy: No - mitochondrial disease Endocrine/Hematology History: Reports: Hx Diabetes - iddm Denies: Hx Anticoagulant Therapy, Hx Thyroid Disease Cardiovascular History: Reports: Hx Cardiomegaly, Hx Congestive Heart Failure - IDIOPATHIC, Hx Hypertension - WELL CONTROLLED, Hx Pacemaker/ICD, Hx Valvular Heart Disease - MITRAL REGURG, Other Cardiovascular Problems/Disorders - Hypertrophic CARDIOMYOPATHY Denies: Hx Deep Vein Thrombosis, Hx Myocardial Infarction Respiratory History: Denies: Hx Asthma, Hx Chronic Obstructive Pulmonary Disease (COPD), Hx Lung Cancer, Hx Pneumonia, Hx Pulmonary Embolism GI History: Denies: Hx Gall Bladder Disease, Hx Gastrointestinal Bleed, Hx Ulcer, Hx Urosepsis History: Reports: Hx Renal Disease - She states that she was told that she had "kidney failure" Denies: Hx Dialysis, Hx Kidney Stones Musculoskeletal History: Denies: Hx Scoliosis Sensory History: Reports: Hx Contacts or Glasses, Hx Hearing Aid, Hx Hearing Problem Opthamlomology History: Reports: Hx Contacts or Glasses Neurological History: Denies: Hx Dementia, Hx Headaches, Hx Migraine, Hx Seizures, Hx Transient Ischemic Attacks (TIA), Other Neuro Impairments/Disorders Psychiatric History: Reports: Hx Depression Denies: Hx Anxiety, Hx Panic Disorder, Hx Schizophrenia, Hx Bipolar Disorder - Surgical History Surgery Procedure, Year, and Place: L knee arthroscopy. tonsillectomy. 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 Hx Anesthesia Reactions: No - Immunization History Date of Tetanus Vaccine: 2011 Date of Influenza Vaccine: fall 2012 Infectious Disease History: Denies: Hx Clostridium Difficile, Hx Hepatitis, Hx Human Immunodeficiency Virus (HIV), Hx of Known/Suspected MRSA, Hx Shingles, Hx Tuberculosis, Hx Known/ Suspected VRE, Hx Known/Suspected VRSA, History Other Infectious Disease - Family History Known Family History: Positive: Cardiac Disease, Hypertension, Diabetes, Other - Brain cancer, Parkinson's - Social History Alcohol Use: Rare Hx Substance Use: No Substance Use Type: Reports: None Hx Tobacco Use: No Smoking Status (MU): Never Smoked Tobacco Review of Systems Negative: Fever, Chills Positive: Chest Pain Respiratory: Negative Positive: Nausea Genitourinary: Negative Neurological: Other - POS: dizziness Positive: Headache All Other Systems Reviewed And Are Negative: Yes Physical Exam - Summary Physical Exam Summary: Appearance: Well appearing, no pain distress. Pt is transgender. Skin: warm, dry, reflects adequate perfusion Head/face: normal Eyes: EOMI, LIVAN ENT: normal Neck: supple, non-tender Chest: Pacemaker defibrillator on left chest. Respiratory: CTA, breath sounds present Cardiovascular: RRR, pulses symmetrical Abdomen: non-tender, soft Bowel: present Musculoskeletal: normal, strength/ROM intact Neuro: normal, sensory motor intact, A&Ox3 Triage Information Reviewed: Yes Vital Signs On Initial Exam: Initial Vitals Temp Pulse Resp BP Pulse Ox 97.3 F 76 14 129/72 96 05/07/18 13:22 05/07/18 13:22 05/07/18 13:22 05/07/18 13:22 05/07/18 13:22 Vital Signs Reviewed: Yes Diagnostics - Vital Signs Vital Signs Temp Pulse Resp BP Pulse Ox 05/07/18 13:50 82 26 104/72 93 05/07/18 13:46 80 18 94 05/07/18 13:22 97.3 F 76 14 129/72 96 05/07/18 13:20 82 9 129/73 94 - Laboratory Lab Results: Lab Results 05/07/18 05/07/18 05/07/18 Range/Units 13:51 13:51 13:51 WBC 6.7 (3.5-10.8) 10^3/ul RBC 4.99 (4.00-5.40) 10^6/ul Hgb 15.2 (12.0-16.0) g/dl Hct 44 (35-47) % MCV 88 (80-97) fL MCH 30 (27-31) pg MCHC 35 (31-36) g/dl RDW 13 (10.5-15) % Plt Count 217 (150-450) 10^3/ul MPV 9.5 (7.4-10.4) um3 Neut % (Auto) 61.9 (38-83) % Lymph % (Auto) 27.2 (25-47) % [place] % (Auto) 8.9 H (0-7) % Eos % (Auto) 1.4 (0-6) % Baso % (Auto) 0.6 (0-2) % Absolute Neuts (auto) 4.1 (1.5-7.7) 10^3/ul Absolute Lymphs (auto) 1.8 (1.0-4.8) 10^3/ul Absolute Monos (auto) 0.6 (0-0.8) 10^3/ul Absolute Eos (auto) 0.1 (0-0.6) 10^3/ul Absolute Basos (auto) 0 (0-0.2) 10^3/ul Absolute Nucleated RBC 0 10^3/ul Nucleated RBC % 0.1 INR (Anticoag Therapy) (0.77-1.02) APTT (26.0-36.3) seconds Sodium 134 L (135-145) mmol/L Potassium 4.7 (3.5-5.0) mmol/L Chloride 100 L (101-111) mmol/L Carbon Dioxide 26 (22-32) mmol/L Anion Gap 8 (2-11) mmol/L BUN 24 (6-24) mg/dL Creatinine 1.31 H (0.51-0.95) mg/dL Est GFR ( Amer) 53.9 (>60) Est GFR (Non-Af Amer) 44.5 (>60) BUN/Creatinine Ratio 18.3 (8-20) Glucose 191 H (70-100) mg/dL Lactic Acid 1.9 (0.5-2.0) mmol/L Calcium 9.7 (8.6-10.3) mg/dL Total Bilirubin 0.50 (0.2-1.0) mg/dL AST 14 (13-39) U/L ALT 17 (7-52) U/L Alkaline Phosphatase 44 (34-104) U/L Total Creatine Kinase 137 (10-223) U/L CK-MB (CK-2) 5.9 (0.6-6.3) ng/mL Myoglobin 72.4 H (14.3-65.8) ng/mL Troponin I 0.08 H* (<0.04) ng/mL B-Natriuretic Peptide ( - 100) pg/mL Total Protein 7.1 (6.4-8.9) g/dL Albumin 4.0 (3.2-5.2) g/dL Globulin 3.1 (2-4) g/dL Albumin/Globulin Ratio 1.3 (1-3) TSH 2.05 (0.34-5.60) mcIU/mL 05/07/18 05/07/18 Range/Units 13:51 13:51 WBC (3.5-10.8) 10^3/ul RBC (4.00-5.40) 10^6/ul Hgb (12.0-16.0) g/dl Hct (35-47) % MCV (80-97) fL MCH (27-31) pg MCHC (31-36) g/dl RDW (10.5-15) % Plt Count (150-450) 10^3/ul MPV (7.4-10.4) um3 Neut % (Auto) (38-83) % Lymph % (Auto) (25-47) % [place] % (Auto) (0-7) % Eos % (Auto) (0-6) % Baso % (Auto) (0-2) % Absolute Neuts (auto) (1.5-7.7) 10^3/ul Absolute Lymphs (auto) (1.0-4.8) 10^3/ul Absolute Monos (auto) (0-0.8) 10^3/ul Absolute Eos (auto) (0-0.6) 10^3/ul Absolute Basos (auto) (0-0.2) 10^3/ul Absolute Nucleated RBC 10^3/ul Nucleated RBC % INR (Anticoag Therapy) 0.93 (0.77-1.02) APTT 29.5 (26.0-36.3) seconds Sodium (135-145) mmol/L Potassium (3.5-5.0) mmol/L Chloride (101-111) mmol/L Carbon Dioxide (22-32) mmol/L Anion Gap (2-11) mmol/L BUN (6-24) mg/dL Creatinine (0.51-0.95) mg/dL Est GFR ( Amer) (>60) Est GFR (Non-Af Amer) (>60) BUN/Creatinine Ratio (8-20) Glucose (70-100) mg/dL Lactic Acid (0.5-2.0) mmol/L Calcium (8.6-10.3) mg/dL Total Bilirubin (0.2-1.0) mg/dL AST (13-39) U/L ALT (7-52) U/L Alkaline Phosphatase (34-104) U/L Total Creatine Kinase (10-223) U/L CK-MB (CK-2) (0.6-6.3) ng/mL Myoglobin (14.3-65.8) ng/mL Troponin I (<0.04) ng/mL B-Natriuretic Peptide 23 ( - 100) pg/mL Total Protein (6.4-8.9) g/dL Albumin (3.2-5.2) g/dL Globulin (2-4) g/dL Albumin/Globulin Ratio (1-3) TSH (0.34-5.60) mcIU/mL Result Diagrams: 05/07/18 13:51 05/07/18 13:51 Lab Statement: Any lab studies that have been ordered have been reviewed, and results considered in the medical decision making process. - Radiology Chest XR Xray Interpretation: No Acute Changes - IMPRESSION: No active cardiopulmonary disease. Dr. Whitehead has reviewed this report. Radiology Interpretation Completed By: Radiologist - EKG 13:21 Cardiac Rate: NL - at [address] Segment: Non-Specific EKG Interpretation: Ventricular paced rhythm at 73 bpm. Left axis. Chest Pain Course/Dx - Course Course Of Treatment: Transgender patient with history of mitochondrial disease and hypertrophic cardiomyopathy presents with chest pain while at rest. Also worsens with exertion. Minimal discomfort here after nitroglycerin. Nitroglycerin patch applied later. Discussed the case with the hospitalist who will admit. Troponin is chronically elevated likely due to baseline creatinine of 1.3. Admit to telemetry service for further. - Chest Pain Differential Diagnosis/HQI/PQRI: Acute AL, ACS, Angina, Chest Wall, GI Disease, Lower Respiratory Infection - Diagnoses Provider Diagnoses: Unstable angina, Hypertrophic cardiomyopathy, Stage 3 chronic kidney disease due to type 2 diabetes mellitus - Provider Notifications Discussed Care Of Patient With: Whitney Torre Time Discussed With Above Provider: 14:45 Instructed by Provider To: Admit As Inpatient Discharge - Sign-Out/Discharge Documenting (check all that apply): Discharge/Admit/Transfer - Admit - Discharge Plan Condition: Fair Disposition: ADMITTED TO [facility] - Billing Disposition and Condition Condition: FAIR Disposition: Admitted to [facility] The documentation as recorded by the Jason givens Angela accurately reflects the service I personally performed and the decisions made by Ventura gibson Kirk, MD.
--- NOTE | 2018-05-07 16:52 | RAD ---
Indication: Right upper quadrant pain. Real-time sonography of the right upper quadrant was performed. The liver measures 16.3 cm in length. There are no focal lesions or intrahepatic duct dilatation noted. The gallbladder demonstrates no gallstones, pericholecystic fluid or wall thickening. The common duct measures 0.3 cm. The right kidney measures 10.8 x 4.4 x 3.7 cm with no hydronephrosis. The pancreas is not visualized due to overlying gas. IMPRESSION: No evidence of cholelithiasis or biliary duct dilatation is noted.
[2018-05-07] MEDS ORDERED: Acetaminophen TAB* 325 MG PO PRN (17:19)
[2018-05-07] MEDS: NS 0.9% 1000 ML* 1,000 ML IV SCH (17:45)
[2018-05-07] MEDS ORDERED: Dextrose 50% Syringe 50 ML* 25 GM/50 ML SYRINGE IV PUSH PRN (17:55)
[2018-05-07] MEDS ORDERED: Insulin REGULAR(*) 1 UNITS UNIT SUBCUT SCH (18:00)
[2018-05-07] MEDS ORDERED: Insulin GLARGINE(*) 1 UNITS UNIT SUBCUT SCH (18:00)
--- NOTE | 2018-05-07 18:41 | HP ---
CC: Dr. Schrader HISTORY AND PHYSICAL: DATE OF ADMISSION: 05/07/18 TIME OF EVALUATION: 3 p.m. PRIMARY CARE PROVIDER: Dr. Schrader. CHIEF COMPLAINT: Chest pain. HISTORY OF PRESENT ILLNESS: Ms. 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 The patient states she was in her usual state of health yesterday. She went to the mall, had chicken and arrington ranch pizza for dinner and this was followed by some indigestion, but it resolved and she was able to sleep. This morning, she woke up not feeling well with nausea, fatigue, "not feeling right." She went to work and developed retrosternal chest pain, rated at 5/10 radiating to her left shoulder and arm. The patient sat down and tried to continue to work, but the pain persisted and she was feeling lightheaded, so she asked a friend to bring her to the emergency room. In the ED, the patient received nitroglycerin and that brought the pain down from 5 to a 3 and at the time of my evaluation, the patient is chest pain free. There is no history of fever, chills, diarrhea, cough, or other infectious symptoms. Of note is the fact that the patient is being evaluated at the [facility] for a possible cardiac transplant. Part of her evaluation included analysis of her heart rhythm and she had an ICD placed. She states that at this point, she was told she would not qualify for a transplant because "she is doing too well" but they want to prepare her in case she has any further deterioration. PAST MEDICAL HISTORY: 1. 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 2. Nonischemic cardiomyopathy with ejection fraction of 25 to 30%. 3. Asthma. 4. Transgender individual, male to female, on estradiol replacement. 5. Type 2 diabetes. 6. CKD, stage 3. PAST SURGICAL HISTORY: 1. Status post ICD. 2. Status post tonsillectomy. 3. Status post orchiectomy. 4. Status post knee arthroscopy. MEDICATION LIST: 1. Calcium plus vitamin D 1 tablet p.o. daily. 2. Cetirizine 10 mg p.o. daily as needed for allergies. 3. Trulicity 1.5 mg subcutaneously on Fridays. 4. Estradiol 2 mg p.o. daily. 5. Lispro insulin, on an insulin pump. 6. Lisinopril 10 mg p.o. daily. 7. Magnesium oxide 400 mg p.o. daily. 8. Metoprolol succinate 100 mg p.o. daily. 9. Lyrica 50 mg p.o. b.i.d. 10. Sertraline 100 mg p.o. daily. 11. Aldactone 25 mg p.o. daily. ALLERGIES TO MEDICATIONS: No known drug allergies. FAMILY HISTORY: Mother had a history of hypertension. Father had a history of SD, hypertension, diabetes, and Parkinson's disease. SOCIAL HISTORY: No history of tobacco or alcohol use. The patient is . Surrogate decision maker is her friend, Colette Weeks, phone number is [phone]. REVIEW OF SYSTEMS: A 14-point review of systems was performed, and all the pertinent negatives and positive findings are in the HPI. PHYSICAL EXAMINATION GENERAL: The patient is a pleasant lady, lying in the ED stretcher, in no acute distress. VITAL SIGNS: Temperature 97.3, heart rate is 82, respiratory rate is 18, oxygen saturation 93% on room air, blood pressure is 104/72. HEENT: Pupils are equal. Moist mucous membranes. CHEST: Breath sounds are present bilaterally with no added sounds. CVS: Normal S1, S2. Regular rate and rhythm. ABDOMEN: Soft, nontender, nondistended. Bowel sounds are present. EXTREMITIES: No edema. NEURO: She is alert, awake, oriented x3. Able to move all 4 extremities. LABORATORY AND IMAGING DATA: The patient had a CBC that showed a WBC of 6.7, hemoglobin of 15.2, hematocrit of 44, platelets of 217 with 61% neutrophils. INR is 0.93, aPTT is 29.5. Chemistries showed a sodium of 134, potassium of 4.7 , chloride of 100, bicarb of 26, BUN of 24, creatinine of 1.31, glucose of 191, lactic acid 1.9, calcium of 9.7. LFTs are normal. Troponin was 0.08. BNP was 23. TSH 2.05. Chest x-ray showed no active cardiopulmonary disease. EKG showed atrial sensed ventricular paced rhythm with a heart rate of 73. ASSESSMENT AND PLAN: Ms. Hou is a 42-year-old transgender male to female patient with a past medical history of maternally inherited diabetes and deafness, mitochondrial disease, nonischemic cardiomyopathy with ejection fraction of 25 to 30% with ICD, asthma, type 2 diabetes who presents to the emergency room with complaints of chest pain. 1. Chest pain, rule out acute coronary syndrome. The patient will be admitted to the telemetry floor. We are going to check serial troponins and serial EKGs. The patient has nonischemic cardiomyopathy that appears to be stable. I am concerned with the fact that the patient's chest pain was relieved by nitroglycerin, but this could be GI in nature considering that she ate pizza last night. For the same reason, we are going to check a right upper quadrant ultrasound to rule out gallbladder disease. The patient had a cardiac cath done in 2014 that showed no significant coronary artery disease. If acute coronary syndrome is ruled out, consideration could be given for a stress test as inpatient versus outpatient. 2. Diabetes. We will continue the patient's insulin pump. 3. Cardiomyopathy. We will continue metoprolol and Aldactone. 4. DVT prophylaxis. The patient has a score of 3 on the DVT Prophylaxis Risk Assessment Guide and she will be started on subcu heparin. 5. Code status is full. TIME SPENT: Approximately 50 minutes were spent with the patient interview, medical records review, physical examination to complete this admission; more than half of this time was spent [id number] with the patient in coordination of care. [id number]/[id number] #: [id number] MARGA
[2018-05-07] MEDS: Insulin GLARGINE(*) 1 UNITS UNIT SUBCUT SCH (18:46)
[2018-05-07] MEDS ORDERED: HYDROcodone/ACETAMIN 5-325 MG* 1 TAB PO ONE (20:54)
[2018-05-07] MEDS: Insulin LISPRO* 1 UNITS UNIT SUBCUT SCH (21:05)
[2018-05-07] MEDS: Pregabalin CAP(*) 50 MG PO SCH (21:05)
[2018-05-07] MEDS: Lisinopril TAB* 10 MG PO SCH (21:55)
[2018-05-07] MEDS: Heparin VIAL(*) 5000 UNITS/ML VIAL (FIVE THOUSAND) SUBCUT SCH (21:56)
[2018-05-08] MEDS: NS 0.9% 1000 ML* 1,000 ML IV SCH (03:33)
[2018-05-08] MEDS: Heparin VIAL(*) 5000 UNITS/ML VIAL (FIVE THOUSAND) SUBCUT SCH ×3 (05:58→21:43)
[2018-05-08] MEDS: Insulin LISPRO* 1 UNITS UNIT SUBCUT SCH ×4 (09:30→21:43)
[2018-05-08] MEDS: Magnesium Oxide TAB* 400 MG PO SCH (09:38)
[2018-05-08] MEDS: Metoprolol Succinate XL TAB* 100 MG PO SCH (09:38)
[2018-05-08] MEDS: Sertraline* 100 MG TAB PO SCH (09:39)
[2018-05-08] MEDS: Calcium/Vitamin D TAB 250/125* TAB PO SCH (09:39)
[2018-05-08] MEDS: Spironolactone TAB* 25 MG PO SCH (09:39)
[2018-05-08] MEDS: Aspirin EC TAB* 81 MG TAB.EC PO SCH (09:39)
[2018-05-08] MEDS: Pregabalin CAP(*) 50 MG PO SCH ×2 (09:40→21:41)
[2018-05-08] MEDS: ESTRADIOL 1 MG PO SCH (09:40)
[2018-05-08] MEDS: Morphine VIAL* 4 MG/ML VIAL (1 ml vial) IV PRN ×2 (10:33→21:48)
--- NOTE | 2018-05-08 10:36 | PN ---
Subjective Date of Service: 05/08/18 Interval History: Pt feels tired. started working 3 weeks ago and is "exhausted". Last CP prior to this admission occurred 1 year ago. denies MOODY, leg edema. Had CP this AM radiating to left arm treated successfully with morphine. Objective Active Medications: Acetaminophen (Tylenol Tab*) 650 mg PO Q6H PRN PRN Reason: pain/fever Last Admin: 05/07/18 17:44 Dose: 650 mg Aspirin (Aspirin Ec Tab*) 81 mg PO DAILY [facility] Last Admin: 05/08/18 09:39 Dose: 81 mg Calcium/Vitamin D (Oscal D Tab 250/125*) 1 tab PO DAILY [facility] Last Admin: 05/08/18 09:39 Dose: 1 tab Cetirizine HCl (Zyrtec*) 10 mg PO DAILY PRN; Protocol PRN Reason: Allergy Symptoms Last Admin: 05/08/18 09:38 Dose: 10 mg Dextrose (D50w Syringe 50 Ml*) 12.5 gm IV PUSH .FOR FS < 60 - SS PRN PRN Reason: FS < 60 Estradiol (Estradiol Tab(Nf)) 2 mg PO DAILY [facility] Last Admin: 05/08/18 09:40 Dose: 2 mg Heparin Sodium (Porcine) (Heparin Vial(*)) 5,000 units SUBCUT Q8HR [facility] Last Admin: 05/08/18 05:58 Dose: 5,000 units Sodium Chloride (Ns 0.9% 1000 Ml*) 1,000 mls @ 100 mls/hr IV PER RATE [facility] Last Admin: 05/08/18 03:33 Dose: 100 mls/hr Insulin Glargine (Lantus(*)) 15 units SUBCUT Q24H [facility] Last Admin: 05/07/18 18:46 Dose: 15 units Insulin Human Lispro (Humalog*) 0 units SUBCUT ACHS [facility]; Protocol Last Admin: 05/08/18 09:30 Dose: Not Given Lisinopril (Prinivil Tab*) 20 mg PO BEDTIME [facility] Last Admin: 05/07/18 21:55 Dose: 20 mg Magnesium Oxide (Magox 400 Tab*) 400 mg PO DAILY [facility] Last Admin: 05/08/18 09:38 Dose: 400 mg Metoprolol Succinate (Toprol Xl Tab*) 100 mg PO DAILY [facility] Last Admin: 05/08/18 09:38 Dose: 100 mg Morphine Sulfate (Morphine Vial*) 1 mg IV Q4H PRN PRN Reason: PAIN Pregabalin (Lyrica Cap(*)) 50 mg PO BID [facility] Last Admin: 05/08/18 09:40 Dose: 50 mg Sertraline HCl (Zoloft*) 100 mg PO DAILY [facility] Last Admin: 05/08/18 09:39 Dose: 100 mg Spironolactone (Aldactone Tab*) 25 mg PO DAILY [facility] Last Admin: 05/08/18 09:39 Dose: 25 mg Vital Signs - 8 hr 05/08/18 05/08/18 05/08/18 03:34 08:14 09:40 Temperature 97.8 F 98.6 F Pulse Rate 67 67 Respiratory 14 17 16 Rate Blood Pressure 112/66 102/63 (mmHg) O2 Sat by Pulse 98 99 Oximetry Oxygen Devices in Use Now: None Appearance: 42 yo F in nAD, aAOx3 Eyes: No Scleral Icterus, PERRLA Ears/Nose/Mouth/Throat: NL Teeth, Lips, Gums Neck: NL Appearance and Movements; NL JVP, Trachea Midline Respiratory: Symmetrical Chest Expansion and Respiratory Effort, Clear to Auscultation Cardiovascular: NL Sounds; No Murmurs; No JVD, RRR Abdominal: NL Sounds; No Tenderness; No Distention Lymphatic: No Cervical Adenopathy Extremities: No Edema, No Clubbing, Cyanosis Skin: No Rash or Ulcers, No Nodules or Sclerosis Neurological: Alert and Oriented x 3, NL Muscle Strength and Tone Result Diagrams: 05/07/18 13:51 05/07/18 13:51 Additional Lab and Data: Lab Results 05/07/18 05/07/18 05/07/18 Range/Units 13:51 13:51 13:51 WBC 6.7 (3.5-10.8) 10^3/ul RBC 4.99 (4.00-5.40) 10^6/ul Hgb 15.2 (12.0-16.0) g/dl Hct 44 (35-47) % MCV 88 (80-97) fL MCH 30 (27-31) pg MCHC 35 (31-36) g/dl RDW 13 (10.5-15) % Plt Count 217 (150-450) 10^3/ul MPV 9.5 (7.4-10.4) um3 Neut % (Auto) 61.9 (38-83) % Lymph % (Auto) 27.2 (25-47) % [place] % (Auto) 8.9 H (0-7) % Eos % (Auto) 1.4 (0-6) % Baso % (Auto) 0.6 (0-2) % Absolute Neuts (auto) 4.1 (1.5-7.7) 10^3/ul Absolute Lymphs (auto) 1.8 (1.0-4.8) 10^3/ul Absolute Monos (auto) 0.6 (0-0.8) 10^3/ul Absolute Eos (auto) 0.1 (0-0.6) 10^3/ul Absolute Basos (auto) 0 (0-0.2) 10^3/ul Absolute Nucleated RBC 0 10^3/ul Nucleated RBC % 0.1 INR (Anticoag Therapy) (0.77-1.02) APTT (26.0-36.3) seconds Sodium 134 L (135-145) mmol/L Potassium 4.7 (3.5-5.0) mmol/L Chloride 100 L (101-111) mmol/L Carbon Dioxide 26 (22-32) mmol/L Anion Gap 8 (2-11) mmol/L BUN 24 (6-24) mg/dL Creatinine 1.31 H (0.51-0.95) mg/dL Est GFR ( Amer) 53.9 (>60) Est GFR (Non-Af Amer) 44.5 (>60) BUN/Creatinine Ratio 18.3 (8-20) Glucose 191 H (70-100) mg/dL Lactic Acid 1.9 (0.5-2.0) mmol/L Calcium 9.7 (8.6-10.3) mg/dL Total Bilirubin 0.50 (0.2-1.0) mg/dL AST 14 (13-39) U/L ALT 17 (7-52) U/L Alkaline Phosphatase 44 (34-104) U/L Total Creatine Kinase 137 (10-223) U/L CK-MB (CK-2) 5.9 (0.6-6.3) ng/mL Myoglobin 72.4 H (14.3-65.8) ng/mL Troponin I 0.08 H* (<0.04) ng/mL B-Natriuretic Peptide ( - 100) pg/mL Total Protein 7.1 (6.4-8.9) g/dL Albumin 4.0 (3.2-5.2) g/dL Globulin 3.1 (2-4) g/dL Albumin/Globulin Ratio 1.3 (1-3) TSH 2.05 (0.34-5.60) mcIU/mL 05/07/18 05/07/18 Range/Units 13:51 13:51 WBC (3.5-10.8) 10^3/ul RBC (4.00-5.40) 10^6/ul Hgb (12.0-16.0) g/dl Hct (35-47) % MCV (80-97) fL MCH (27-31) pg MCHC (31-36) g/dl RDW (10.5-15) % Plt Count (150-450) 10^3/ul MPV (7.4-10.4) um3 Neut % (Auto) (38-83) % Lymph % (Auto) (25-47) % [place] % (Auto) (0-7) % Eos % (Auto) (0-6) % Baso % (Auto) (0-2) % Absolute Neuts (auto) (1.5-7.7) 10^3/ul Absolute Lymphs (auto) (1.0-4.8) 10^3/ul Absolute Monos (auto) (0-0.8) 10^3/ul Absolute Eos (auto) (0-0.6) 10^3/ul Absolute Basos (auto) (0-0.2) 10^3/ul Absolute Nucleated RBC 10^3/ul Nucleated RBC % INR (Anticoag Therapy) 0.93 (0.77-1.02) APTT 29.5 (26.0-36.3) seconds Sodium (135-145) mmol/L Potassium (3.5-5.0) mmol/L Chloride (101-111) mmol/L Carbon Dioxide (22-32) mmol/L Anion Gap (2-11) mmol/L BUN (6-24) mg/dL Creatinine (0.51-0.95) mg/dL Est GFR ( Amer) (>60) Est GFR (Non-Af Amer) (>60) BUN/Creatinine Ratio (8-20) Glucose (70-100) mg/dL Lactic Acid (0.5-2.0) mmol/L Calcium (8.6-10.3) mg/dL Total Bilirubin (0.2-1.0) mg/dL AST (13-39) U/L ALT (7-52) U/L Alkaline Phosphatase (34-104) U/L Total Creatine Kinase (10-223) U/L CK-MB (CK-2) (0.6-6.3) ng/mL Myoglobin (14.3-65.8) ng/mL Troponin I (<0.04) ng/mL B-Natriuretic Peptide 23 ( - 100) pg/mL Total Protein (6.4-8.9) g/dL Albumin (3.2-5.2) g/dL Globulin (2-4) g/dL Albumin/Globulin Ratio (1-3) TSH (0.34-5.60) mcIU/mL Assess/Plan/Problems-Billing Assessment: 42 yo F (rubin to female transgender) with h/o hyperthrophic mitochondrial cardiomyopathy (Echo in [facility] 06/2017 showed infiltrative CM, EF 30%), DM(on insulin pump) - Patient Problems (1) Chest pain Comment: troponin mildly elevated. EKG shows paced rhythm Pt continues to have intermittent CP with radiation to left arm consulted Dr. Pinto. It appears that pt had been under physical and psychological stress due to working again.There is no indication so far for repeat cardiac procedures/testing. 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 (4) Type II diabetes mellitus Comment: insulin pump off, pt had no supplies in hospital cont Lantus and ISS (5) DVT prophylaxis Comment: SQ heparin Status and Disposition: OBV
--- NOTE | 2018-05-08 12:54 | CONS ---
CC: Dr. Schrader; Dr. Faye CARDIOLOGY CONSULT REPORT: DATE OF CONSULT: 05/08/18 INDICATION FOR CONSULT: Chest pain. HISTORY OF PRESENT ILLNESS: The patient is a 42-year-old female, who is transitioning to male, with history of hypertrophic cardiomyopathy, moderate-to- severe LVH, moderate LV dysfunction, who was adm itted to the hospital with chest pain. The patient states that she had been doing well over the last couple of months; however, yesterday felt very fatigued, just felt like she had no energy, then star sabina having some chest pain. She described it as a sharp discomfort in the center of her chest that r adiated a little bit up into her left shoulder. It was intense and rated about 6/10 and lasted for a bout a half an hour. With it, she has felt fatigued. She denied any lightheadedness or dizziness. She denied any syncope, denied any nausea or diaphoresis associated with it. The patient was transpo rted to the emergency room and admitted to the hospital. The patient's EKG shows normal sinus rhythm with biventricular pacer. Her troponins are 0.08, 0.09, and 0.08. Looking at her old troponin leve ls that is about at her baseline. She always has mildly elevated troponin levels likely secondary to her left ventricular hypertrophy. This morning, the patient states that there was another episode o f chest pain, it was sort of mild and was in the center of her chest. It lasted for about 20 minutes and then resolved on its own. Overall, the patient's greatest complaint is the fatigue, just feels like she has no energy. She denies any fevers or chills. Denies any change in bowel movements, no d iarrhea. 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 MEDICATIONS: Outpatient medications: 1. Lyrica 50 mg b.i.d. 2. Metoprolol succinate 100 mg daily. 3. Lisinopril 20 mg a day. 4. Estradiol 2 mg a day. 5. Spironolactone 25 mg a day. 6. Sertraline 100 mg a day. 7. Magnesium 400 mg a day. 8. 10 mg as needed. 9. Insulin as directed. 10. Trulicity 1.5 mg injections. ALLERGIES: No known drug allergies. FAMILY HISTORY: Noncontributory. SOCIAL HISTORY: The patient had not been working for a year, but just recently returned to work 3 we eks ago. No tobacco or alcohol use. Does not get any regular exercise. REVIEW OF SYSTEMS: As above. PHYSICAL EXAM: Height is 5 feet 10 inches, weight 214 pounds. Temperature 97.8, heart rate is 67, b lood pressure 112/66, respiratory rate is 14, and oxygen saturation 98% on room air. Sclerae anicter ic. Oropharynx is pink without erythema. Carotids are 2+ without bruits. JVD is normal. Thyroid i s normal. Cardiac Exam: S1 and S2 without any murmurs, rubs, or gallops. PMI is normal. Lungs are c lear to auscultation bilaterally. There is no dullness to percussion. Abdomen is soft, nontender, an d nondistended with normoactive bowel sounds. Extremities show no edema. She has 2+ pulses throughou t. The patient is awake, alert, and oriented. Moves all 4 extremities equally. DIAGNOSTIC STUDIES/LAB DATA: Potassium 4.7, BUN 24, creatinine 1.3. AST and ALT are normal. Tropon in as described above. BNP 23. TSH 2.05. Chest x-ray is normal. IMPRESSION AND PLAN: This is a 42-year-old individual with a history of hypertrophic cardiomyopathy, moderately reduced left ventricular ejection fraction, who comes to the emergency room because of ch est pain. In general, chest pain is rather nondescript, does not sound particularly cardiac in origi n. The patient's laboratory studies were unremarkable. At this point, I am not exactly sure what th e cause of the discomfort is. The patient will continue to be observed in the hospital. Perhaps an echocardiogram for further evaluation if necessary tomorrow. The patient was to be seen by Dr. Faye tomorrow, her primary manager assembly. [id number]/[facility] #: [id number]
[2018-05-08] MEDS: Insulin GLARGINE(*) 1 UNITS UNIT SUBCUT SCH (17:39)
[2018-05-08] MEDS: Lisinopril TAB* 10 MG PO SCH (21:41)
[2018-05-09] MEDS: Heparin VIAL(*) 5000 UNITS/ML VIAL (FIVE THOUSAND) SUBCUT SCH (05:36)
[2018-05-09 06:45] LABS: Hematocrit 42 % (35-47); Hemoglobin 14.7 g/dl (12.0-16.0); Mean Corpuscular HGB Conc 35 g/dl (31-36); Mean Corpuscular Hemoglobin 31 pg (27-31); Mean Corpuscular Volume 88 fL (80-97); Mean Platelet Volume 9.6 um3 (7.4-10.4); Platelet Count 186 10^3/ul (150-450); Red Blood Count 4.76 10^6/ul (4.00-5.40); Red Cell Distribution Width 13 % (10.5-15); White Blood Count 6.1 10^3/ul (3.5-10.8)
[2018-05-09 07:02] LABS: EGFR Non-African American 46.6 (>60)
[2018-05-09] MEDS: Magnesium Oxide TAB* 400 MG PO SCH (08:49)
[2018-05-09] MEDS: Pregabalin CAP(*) 50 MG PO SCH (08:49)
[2018-05-09] MEDS: Insulin LISPRO* 1 UNITS UNIT SUBCUT SCH (08:49)
[2018-05-09] MEDS: Sertraline* 100 MG TAB PO SCH (08:50)
[2018-05-09] MEDS: Calcium/Vitamin D TAB 250/125* TAB PO SCH (08:50)
[2018-05-09] MEDS: Metoprolol Succinate XL TAB* 100 MG PO SCH (08:50)
[2018-05-09] MEDS: ESTRADIOL 1 MG PO SCH (08:50)
[2018-05-09] MEDS: Aspirin EC TAB* 81 MG TAB.EC PO SCH (08:50)
[2018-05-09] MEDS: Spironolactone TAB* 25 MG PO SCH (08:50)
[2018-05-09 09:05] VITALS: BP 106/67
--- NOTE | 2018-05-09 09:55 | ECHO ---
Patient: JAVIER PHILIPPE [facility] Rec#: [id number] : 1975 Date: 05/09/2018 Age: 42y Height: 178 cm / 70.1 in Weight: 97.07 kg / 213.9 lbs Sex: F BSA: 2.15 Room#: [facility] Admit Date#: 05/07/2018 Type: Inpatient Referring: Sumi Alaniz MD Reading: Sonu Faye MD Aerospace Mechanic: Marlen Cerna RDCS CC: Tashia Schrader MD Transthoracic Echocardiogram Indication: Chest Pain BP: 118/74 HR: 69 Rhythm: Paced Findings History: Non-ischemic hypertrophic mitochondrial cardiomyopathy EF 25-30%, DM, ICD, CKD III, on estradiol replacement. Technical Comments: The study quality is good. Completed at 0830. Left Ventricle: The left ventricular chamber size is mildly dilated. Moderate concentric left ventricular hypertrophy is observed. There is global hypokinesis of the left ventricle with minor regional variation. There is moderately decreased left ventricular systolic function. The estimated ejection fraction is 30-35%. Visually estimated LVEF is 35 %. Abnormal left ventricular diastolic function is observed. Abnormal left ventricular diastolic filling is observed, consistent with impaired relaxation. Left Atrium: The left atrium is mildly dilated. Right Ventricle: Moderator Band present. The right ventricle is mildly dilated. The right ventricular global systolic function is normal. A pacemaker wire is visualized in the right ventricle. Right Atrium: The right atrium is slightly dilated. A pacemaker wire is visualized in the right atrium. Aortic Valve: The aortic valve is trileaflet. The aortic valve leaflets are mildly thickened. There is no evidence of aortic regurgitation. There is no evidence of aortic stenosis. Mitral Valve: The mitral valve leaflets are mildly thickened. There is trace to mild mitral regurgitation. There is no evidence of mitral stenosis. Tricuspid Valve: The tricuspid valve leaflets are normal. There is mild tricuspid regurgitation. The right ventricular systolic pressure is estimated at 29 mmHg. No pulmonary hypertension is noted. There is no tricuspid stenosis. Pulmonic Valve: The pulmonic valve appears normal. There is no evidence of pulmonic regurgitation. There is no pulmonic stenosis. Pericardium: There is no significant pericardial effusion. Aorta: There is no dilatation of the ascending aorta. There is no dilatation of the aortic arch. The aortic root is normal in size. Pulmonary Artery: The main pulmonary artery appears normal. Venous: The inferior vena cava is dilated. There is a greater than 50% respiratory change in the inferior vena cava dimension. Conclusions Moderate concentric left ventricular hypertrophy is observed. There is global hypokinesis of the left ventricle with minor regional variation. The estimated ejection fraction is 30-35%. Visually estimated LVEF is 35 %. Abnormal left ventricular diastolic filling is observed, consistent with impaired relaxation. The left atrium is mildly dilated. The right ventricular global systolic function is normal. A pacemaker wire is visualized in the right atrium. There is trace to mild mitral regurgitation. There is mild tricuspid regurgitation. No pulmonary hypertension is noted. Compared to report of study from 03/15/2017 the overall LV systolic function has improved from 20-25 % LVEF on prior report.. There is still moderate LV systolic dysfunction. The pulmonic regurgitation is no longer seen. Measurements Name Value Normal Range RVIDd (AP) 2D 3.4 cm (0.9 - 2.6) RVDdMajor (2D) 4.5 cm (2.2 - 4.4) RAd ISD 4CH 5.6 cm (3.4 - 4.9) RA (A4C)W 5.3 cm (2.9 - 4.6) IVSd (2D) 1.3 cm (0.6 - 1) LVPWd (2D) 1.4 cm (0.6 - 1) LVIDd (2D) 5.5 cm (3.6 - 5.4) LVIDs (2D) 4.5 cm - Aortic Annulus 2.5 cm (1.4 - 2.6) Ao root diameter (2D) 3.5 cm (2.1 - 3.5) Ascending Ao 3.1 cm (2.1 - 3.4) Aortic arch 2.3 cm (1.8 - 3.4) LA dimension (AP) 2D 4.3 cm (2.3 - 3.8) LAd ISD 4CH 5.4 cm (2.9 - 5.3) LA ISD 4CH W 4.1 cm (2.5 - 4.5) Name Value Normal Range LA ESV BP (A/L) index 27.2 ml/m2 - Name Value Normal Range MV E-wave Vmax 0.46 m/sec - MV deceleration time 197 msec - MV A-wave Vmax 0.62 m/sec - MV E:A ratio 0.7 ratio - LV septal e' Vmax 0.05 m/sec - LV lateral e' Vmax 0.07 m/sec - LV E:e' septal ratio 9.2 ratio - LV E:e' lateral ratio 6.57 ratio - Name Value Normal Range AV Vmax 0.9 m/sec - AV VTI 17.9 cm - AV peak gradient 3 mmHg - AV mean gradient 2 mmHg - LVOT Vmax 0.73 m/sec - LVOT VTI 12.7 cm - LVOT peak gradient 2 mmHg - LVOT mean gradient 1 mmHg - STAR Vmax 0.9 m/sec - Name Value Normal Range TR Vmax 2.3 m/sec - TR peak gradient 21 mmHg - RAP 8 mmHg - RVSP 29 mmHg - IVC diameter 2.2 cm - Name Value Normal Range PV Vmax 0.8 m/sec - PV peak gradient 3 mmHg -
--- NOTE | 2018-05-09 10:30 | PN ---
Subjective Date of Service: 05/09/18 Interval History: Patient seen and examined at bedside. Denies fever, chills, shortness of breath , N/V/D. Pt states that her chest discomfort continues and feels like pressure, she reports that this is worse after ambulating back from the bathroom. Tele: Paced, rate 70's. Family History: Unchanged from Admission Social History: Unchanged from Admission Past Medical History: Unchanged from Admission Objective Active Medications: Acetaminophen (Tylenol Tab*) 650 mg PO Q6H PRN Reason: pain/fever Aspirin (Aspirin Ec Tab*) 81 mg PO DAILY [facility] Calcium/Vitamin D (Oscal D Tab 250/125*) 1 tab PO DAILY [facility] Cetirizine HCl (Zyrtec*) 10 mg PO DAILY PRN; Protocol Reason: Allergy Symptoms Dextrose (D50w Syringe 50 Ml*) 12.5 gm IV PUSH .FOR FS < 60 - SS PRN Reason: FS < 60 Estradiol (Estradiol Tab(Nf)) 2 mg PO DAILY [facility] Heparin Sodium (Porcine) (Heparin Vial(*)) 5,000 units SUBCUT Q8HR [facility] Insulin Glargine (Lantus(*)) 15 units SUBCUT Q24H [facility] Insulin Human Lispro (Humalog*) 0 units SUBCUT ACHS [facility]; Protocol Lisinopril (Prinivil Tab*) 20 mg PO BEDTIME [facility] Magnesium Oxide (Magox 400 Tab*) 400 mg PO DAILY [facility] Metoprolol Succinate (Toprol Xl Tab*) 100 mg PO DAILY [facility] Morphine Sulfate (Morphine Vial*) 1 mg IV Q4H PRN Reason: PAIN Pregabalin (Lyrica Cap(*)) 50 mg PO BID [facility] Sertraline HCl (Zoloft*) 100 mg PO DAILY [facility] Spironolactone (Aldactone Tab*) 25 mg PO DAILY [facility] Vital Signs - 8 hr 05/09/18 05/09/18 05/09/18 03:28 03:49 08:20 Temperature 98.7 F 99.3 F Pulse Rate 72 72 Respiratory 18 16 Rate Blood Pressure 86/47 118/74 106/67 (mmHg) O2 Sat by Pulse 94 98 Oximetry 05/09/18 08:49 Temperature Pulse Rate Respiratory 16 Rate Blood Pressure (mmHg) O2 Sat by Pulse Oximetry Oxygen Devices in Use Now: None Appearance: NAD, laying in bed Ears/Nose/Mouth/Throat: Mucous Membranes Moist Respiratory: Symmetrical Chest Expansion and Respiratory Effort, Clear to Auscultation Cardiovascular: NL Sounds; No Murmurs; No JVD, RRR Abdominal: NL Sounds; No Tenderness; No Distention Extremities: No Edema Skin: No Rash or Ulcers Neurological: Alert and Oriented x 3, NL Muscle Strength and Tone Lines/Tubes/Other Access: Clean, Dry and Intact Peripheral IV - site benign Nutrition: Taking PO's Result Diagrams: 05/09/18 06:23 05/09/18 06:23 Additional Lab and Data: Lab Results Assess/Plan/Problems-Billing Assessment: Ms. Hou is a 42 yo Female (male to female transgender) with h/o hyperthrophic mitochondrial cardiomyopathy (Echo in [facility] 06/2017 showed infiltrative CM, EF 30%), DM(on insulin pump) who presented to the emergency room with complaints of chest pain. - Patient Problems (1) Chest pain Code(s): R07.9 - CHEST PAIN, UNSPECIFIED SNOMED Code(s): 31731871 Comment: - Troponin mildly elevated (baseline) and EKG shows paced rhythm - Pt continues to have intermittent CP with radiation to left arm. Pain is reproducible with palpation to sternum - Cardiology consulted, input appreciated - Last cath 2014: normal coronary arteries - It appears that Pt has been under physical and psychological stress due to working again. There is no indication so far for repeat cardiac procedures or testing - D dimer less than 200 - Echo, global hypokinesis of LV and EF 30-35% - Dr. Faye will see Pt later today (2) Elevated troponin Code(s): R79.89 - OTHER SPECIFIED ABNORMAL FINDINGS OF BLOOD CHEMISTRY SNOMED Code(s): 759408168 Comment: - Chronic, this hospital stay slightly increased (3) Non-ischemic cardiomyopathy Code(s): I42.8 - OTHER CARDIOMYOPATHIES SNOMED Code(s): 11478998 Comment: - EF 30-35% (slight improvement from last echo) - Continue spironolactone (4) Stage 3 chronic kidney disease due to type 2 diabetes mellitus Code(s): E11.22 - TYPE 2 DIABETES MELLITUS W DIABETIC CHRONIC KIDNEY DISEASE; N18.3 - CHRONIC KIDNEY DISEASE, STAGE 3 (MODERATE) SNOMED Code(s): 245646855720 Comment: - Renal function at baseline (5) Type II diabetes mellitus Comment: - Glucose 110-190's - Insulin pump at home, now off as Pt doens't have supplies at hospital - Continue Lantus and Lispro ISS (6) DVT prophylaxis Code(s): ANL1133 - SNOMED Code(s): 399377734 Comment: - SQ heparin (7) Full code status Code(s): Z78.9 - OTHER SPECIFIED HEALTH STATUS SNOMED Code(s): 092937537 Status and Disposition: OBV. Discharge to home when medically stable, possibly later today.
--- NOTE | 2018-05-10 11:10 | DS ---
CC: Dr. Tashia Schrader; Dr. Sonu Faye * DISCHARGE SUMMARY: DATE OF ADMISSION: 05/07/18 DATE OF DISCHARGE: 05/09/18 ATTENDING PHYSICIAN: Dr. Whitney William * (dictated by Marlen Burks NP) PRIMARY CARE PROVIDER: Dr. Tashia Schrader. PRIMARY CONSTRUCTION TECHNICIAN: Dr. Sonu Faye. PRIMARY DIAGNOSIS: Atypical chest pain, suspect muscular in nature. SECONDARY DIAGNOSES: 1. Elevated troponin, chronic. 2. Nonischemic cardiomyopathy, ejection fraction 30% to 35%. 3. Chronic kidney disease, stage 3. 4. Diabetes mellitus. CONSULTATIONS WHILE IN THE HOSPITAL: 1. Dr. Bhupinder Pinto with Cardiology. 2. Dr. Sonu Faye with Interventional Cardiology. STUDIES WHILE IN THE HOSPITAL: Chest x-ray on 05/07/18. Radiologist's impression: No active cardiopulmonary disease. DISCHARGE MEDICATIONS: New home medication: Acetaminophen 650 mg oral every 6 hours as needed for fever or pain. Continued home medications: 1. Lyrica 50 mg oral twice daily. 2. Metoprolol succinate 100 mg oral daily. 3. Lisinopril 20 mg oral daily. 4. Estradiol 2 mg oral daily. 5. Spironolactone 25 mg oral daily. 6. Sertraline 100 mg oral daily. 7. Magnesium oxide 400 mg oral daily. 8. Zyrtec 10 mg oral daily as needed for allergy symptoms. 9. Calcium 500 plus vitamin D 1 capsule oral daily. 10. Lispro insulin pump as previously directed. 11. Trulicity 1.5 mg subcutaneous on Fridays. HISTORY OF PRESENT ILLNESS/HOSPITAL COURSE: Ms. Hou is a 42-year-old transgender, male to female, with past medical history significant for maternal inherited diabetes and deafness, mitochondrial disease, nonischemic cardiomyopathy with ejection fraction of 25% to 30%, asthma, type 2 diabetes mellitus, and BPH, who presented to the emergency room with complaints of chest pain. It is to note that the patient follows with the [facility] for possible cardiac transplant. The patient has a history of an ICD being placed. The patient had been in her usual state of health the day prior. She did report having chicken and arrington ranch pizza for dinner, followed by some indigestion that resolved and she was able to sleep. When she woke the morning of her presentation, she had developed retrosternal chest pain that was radiating to her left arm. The pain persisted. She was feeling lightheaded and asked her friend to bring her to the emergency room for further evaluation. While in the emergency room, the patient received nitroglycerin which improved the pain. The patient's initial troponin was 0.08 and the hospitalist was asked to evaluate the patient for admission. While in the hospital, the patient's troponins were trended. They were 0.08, 0.09, and 0.08, which are consistent with the patient's chronically elevated troponin. She was seen in consultation by Dr. Bhupinder Pinto with Cardiology. She continued to have intermittent chest pain with radiation to her left arm. The pain was reproducible with palpation to the sternum. Her last cath was in 2014 showing normal coronary arteries. Her echo showed global hypokinesis of the left ventricle and an EF of 30% to 35%, which is similar to previous echo from October of last year. Dr. Pinto recommended no further testing. She was seen in consultation by her own general ii farmworker, Dr. Faye, today, who recommended no changes and suspected this was muscular in nature. The patient was continued on her home spironolactone, her renal function was at baseline. While in the hospital, she did not have insulin pump supplies, so she used Lantus and lispro with plans to resume her insulin pump at discharge. Ms. Hou is stable for discharge to home today. Vital signs are as follows: Temperature 99.3, heart rate 72, respiratory rate 16, O2 sat 98% on room air, blood pressure 106/67. DISCHARGE PLAN: Ms. Hou will be discharged to home, activity as tolerated. She should be on a low-sodium, heart-healthy diet. With regards to her chest pain, I suspect this is muscular in nature. She has been asked to notify Dr. Faye if the pain persists or worsens. She has a followup appointment with Dr. Schrader tomorrow on 05/10/18 at 11 a.m. Additionally, she has a followup appointment with Dr. Faye, her general ii farmworker, on 06/03/18 at 3:20 p.m. She continued on her usual home medications. She has been asked to return to the emergency room for any shortness of breath or changes in her chest discomfort. This is a summarized report of a complex medical history and hospital stay. For further details, please see the entire medical record. TIME SPENT: Time for this discharge was approximately 50 minutes, greater than half of that was spent with the patient and her friend discussing discharge plans and instructions. CONDITION ON DISCHARGE: Stable. Reviewed by STACI SOUZA 05/13/18 1824 [id number]/[facility] #: [id number] MARGA
== END 2018-05-09 11:59 | disposition home or self-care (01) ==
LOC: ED 12:56 → MEDTELE 15:04
PROVIDERS: ADMIT Internal Medicine; ATTEND Internal Medicine
DX: R07.9 Chest pain, unspecified (principal); R74.8 Abnormal levels of other serum enzymes; I42.8 Other cardiomyopathies; J45.909 Unspecified asthma, uncomplicated; E88.40 Mitochondrial metabolism disorder, unspecified; I13.0 Hypertensive heart and chronic kidney disease with heart failure and stage 1 through stage 4 chronic kidney disease, or unspecified chronic kidney disease; E11.22 Type 2 diabetes mellitus with diabetic chronic kidney disease; N18.3 Chronic kidney disease, stage 3 (moderate); I50.9 Heart failure, unspecified; Z79.899 Other long term (current) drug therapy; J44.9 Chronic obstructive pulmonary disease, unspecified; Z79.4 Long term (current) use of insulin
CPT/HCPCS: 36415; 71045; 76705; 80048; 80053; 82550; 82553; 83605; 83874; 83880; 84443; 84484; 85025; 85027; 85379; 85610; 85730; 93005; 93306; 96360; 96361; 96372; 96374; 96376; 99283; A9270-GY; G0378; J1644; J2270

== ENCOUNTER 2018-12-27 13:05 | Emergency (ER) | payer BC ==
[2018-12-27 13:10] VITALS: BP 145/91
--- NOTE | 2018-12-27 13:30 | UC ---
Throat Pain/Nasal Giacomo HPI - HPI Summary HPI Summary: Patient complaining of ear pain, sore throat and sinus congestion for the past month. She wears hearing aids and is complaining of a crackling sound in the ears. denies fever. - History of Current Complaint Chief Complaint: UCGeneralIllness Stated Complaint: SINUS COMPLAINT Time Seen by Provider: 12/27/18 13:24 Hx Obtained From: Patient Hx Last Menstrual Period: None--not applicable. Onset/Duration: Gradual Onset, Lasting Weeks Severity: Moderate Pain Intensity: 7 Cough: Nonproductive Associated Signs & Symptoms: Positive: Dysphagia, Sinus Discomfort, Nasal Discharge - Allergies/Home Medications Allergies/Adverse Reactions: Allergies Allergy/AdvReac Type Severity Reaction Status Date / Time No Known Allergies Allergy Verified 12/27/18 13:10 Home Medications: Home Medications Estradiol 0.025 MG PATCH (NF) 1 patch INTRADERM WEEKLY 12/27/18 [History Confirmed 12/27/18] Losartan Potassium [Cozaar] 50 mg PO DAILY 12/27/18 [History Confirmed 12/27/18] PMH/Surg Hx/FS Hx/Imm Hx Previously Healthy: Yes Other History Of: Negative For: HIV, Hepatitis B, Hepatitis C, Anticoagulant Therapy - Surgical History Surgical History: Yes Surgery Procedure, Year, and Place: L knee arthroscopy. tonsillectomy. 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 - Family History Known Family History: Positive: Cardiac Disease, Hypertension, Diabetes, Other - Brain cancer, Parkinson's - Social History Alcohol Use: Rare Substance Use Type: None Smoking Status (MU): Never Smoked Tobacco - Immunization History Most Recent Influenza Vaccination: "probably last year" Most Recent Tetanus Shot: unable to determine Most Recent Pneumonia Vaccination: "never had one" Review of Systems All Other Systems Reviewed And Are Negative: Yes Constitutional: Positive: Negative Skin: Positive: Negative Eyes: Positive: Negative ENT: Positive: Sore Throat, Ear Ache, Nasal Discharge, Sinus Congestion, Sinus Pain/Tenderness Respiratory: Positive: Cough Cardiovascular: Positive: Negative Gastrointestinal: Positive: Negative Genitourinary: Positive: Negative Motor: Positive: Negative Neurovascular: Positive: Negative Musculoskeletal: Positive: Negative Neurological: Positive: Headache Psychological: Positive: Negative Is Patient Immunocompromised?: No Physical Exam Triage Information Reviewed: Yes Appearance: Well-Appearing, Well-Nourished, Ill-Appearing Vital Signs: Initial Vital Signs Temp 99 F 12/27/18 13:07 Pulse 89 12/27/18 13:07 Resp 17 12/27/18 13:07 BP 145/91 12/27/18 13:07 Pulse Ox 100 12/27/18 13:07 Vital Signs Reviewed: Yes Eye Exam: Normal ENT: Positive: Pharyngeal erythema - wiht PND, Nasal congestion, Nasal drainage , Sinus tenderness, Other - bilateral cerumen impaction Dental Exam: Normal Neck exam: Normal Neck: Positive: Supple, Nontender, No Lymphadenopathy Respiratory Exam: Normal Respiratory: Positive: Chest non-tender, Lungs clear, Normal breath sounds Cardiovascular Exam: Normal Cardiovascular: Positive: RRR, No Murmur, Pulses Normal Abdominal Exam: Normal Abdomen Description: Positive: Nontender, No Organomegaly, Soft Bowel Sounds: Positive: Present Musculoskeletal Exam: Normal Neurological Exam: Normal Psychological Exam: Normal Skin Exam: Normal Throat Pain/Nasal Course/Dx - Course Course Of Treatment: hx obtained, exam performed ,meds reviewed, bilateral ear irrigation completed. treated for sinusitis. - Differential Dx/Diagnosis Differential Diagnosis/HQI/PQRI: Otitis Media, Pharyngitis, Sinusitis, URI Provider Diagnosis: Sinusitis Discharge - Sign-Out/Discharge Documenting (check all that apply): Patient Departure All imaging exams completed and their final reports reviewed: No Studies - Discharge Plan Condition: Stable Disposition: HOME Prescriptions: Amoxicillin PO (*) [Amoxicillin 875 MG (*)] 875 mg PO BID #20 tab Patient Education Materials: Sinusitis (ED) Referrals: Cleo RICHARDSON,Ayana Rosales [Primary Care Provider] - Additional Instructions: 1. take the medication as prescribed. 2. Increase fluid intake 3. Use tylenol as needed for pain. 4. Follow up as needed. - Billing Disposition and Condition Condition: STABLE Disposition: Home
== END 2018-12-27 13:45 | disposition home or self-care (01) ==
LOC: UCEAST 13:05
DX: J32.9 Chronic sinusitis, unspecified (principal)
CPT/HCPCS: 99213; G0463

== ENCOUNTER 2019-04-07 11:13 | Observation (INO) | payer BC, OTHER ==
--- NOTE | 2019-04-07 11:15 | ED ---
HPI Chest Pain - HPI Summary HPI Summary: A 43 y/o F brought in by ambulance presents to ED with CP onset approx 1000 this date. Patient was walking from her car into work, when she experienced the palpitations. At bedside, CP is rated 5 out of 10 and radiates down her L shoulder. Associated sx: lightheadedness, diaphoresis, TINSLEY, SOB. Pt denies any fever, chills, erythema of eyes, sore throat, cough, abdominal pain, N/V, dysuria, hematuria, myalgia, edema, rash, or dizziness. Her blood sugar this AM was 215. EMS gave patient nitro and aspirin en route to mild relief. Patient does not have PMHx of DC, stents or CABG; however, she does have an implanted defibrillator, which she does not think it went off. Additional PMHx: Hypertrophic cardiomyopathy, CHF, HTN, DM, exercise-induced asthma. Her last stress test was in Dec 2018 at [facility]. Patient is being evaluated for a heart transplant and has a work-up every 6 months. ED provider met patient and EMS upon arrival in room. - History of Current Complaint Hx Obtained From: Patient, Family/[employer] - best friend Hx Last Menstrual Period: None--not applicable. Timing: Constant Initial Severity: Moderate Current Severity: Moderate Pain Intensity: 5 Pain Scale Used: 0-10 Numeric Chest Pain Location: Mid Sternal Chest Pain Radiates: Yes Chest Pain Radiates To:: Shoulder Character: Sharp/Stabbing Alleviating Factor(s): EMS Tx - mild relief Associated Signs and Symptoms: Positive: Headaches, Shortness of Breath, Lightheadedness, Diaphoresis, Palpitations, Other: - neg: erythema of eyes, sore throat, dysuria, hematuria, myalgia, rash. Negative: Dizziness, Fever, Chills, Nausea, Cough, Abdominal Pain, Vomiting, Edema - Additional Pertinent History Primary Care Physician: [id number] - Allergy/Home Medications Allergies/Adverse Reactions: Allergies Allergy/AdvReac Type Severity Reaction Status Date / Time No Known Allergies Allergy Verified 12/27/18 13:10 Home Medications: Home Medications Aspirin EC TAB* [Ecotrin EC Low Dose 81 MG*] 81 mg PO DAILY 04/07/19 [History Confirmed 04/07/19] Bupropion XL* [Wellbutrin XL *] 150 mg PO DAILY 04/07/19 [History Confirmed 01/21] Dulaglutide (NF) [Trulicity (NF)] 0.75 mg SUBCUT WE 04/07/19 [History Confirmed 04/07/19] Estradiol [Estrace] 2 mg PO DAILY 04/07/19 [History Confirmed 04/07/19] Losartan TAB* [Cozaar TAB*] 50 mg PO DAILY 04/07/19 [History Confirmed 04/07/19] Spironolactone TAB* [Aldactone TAB*] 25 mg PO SUMOTUTHFR 04/07/19 [History Confirmed 04/07/19] PMH/Surg Hx/FS Hx/Imm Hx Previously Healthy: No Endocrine/Hematology History: Reports: Hx Diabetes - iddm Denies: Hx Anticoagulant Therapy, Hx Thyroid Disease Cardiovascular History: Reports: Hx Cardiomegaly, Hx Congestive Heart Failure, Hx Hypertension - WELL CONTROLLED, Hx Pacemaker/ICD - 5/17, Hx Valvular Heart Disease - MITRAL REGURG, Other Cardiovascular Problems/Disorders - Hypertrophic CARDIOMYOPATHY Denies: Hx Deep Vein Thrombosis, Hx Myocardial Infarction Respiratory History: Denies: Hx Asthma, Hx Chronic Obstructive Pulmonary Disease (COPD), Hx Lung Cancer, Hx Pneumonia, Hx Pulmonary Embolism GI History: Denies: Hx Gall Bladder Disease, Hx Gastrointestinal Bleed, Hx Ulcer, Hx Urosepsis History: Reports: Hx Renal Disease - She states that she was told that she had "kidney failure" Denies: Hx Dialysis, Hx Kidney Stones Musculoskeletal History: Denies: Hx Scoliosis Sensory History: Reports: Hx Contacts or Glasses, Hx Hearing Aid, Hx Hearing Problem Opthamlomology History: Reports: Hx Contacts or Glasses Neurological History: Denies: Hx Dementia, Hx Headaches, Hx Migraine, Hx Seizures, Hx Transient Ischemic Attacks (TIA), Other Neuro Impairments/Disorders Psychiatric History: Reports: Hx Depression Denies: Hx Anxiety, Hx Panic Disorder, Hx Schizophrenia, Hx Bipolar Disorder - Surgical History Surgery Procedure, Year, and Place: L knee arthroscopy. tonsillectomy. 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 Hx Anesthesia Reactions: No - Immunization History Date of Tetanus Vaccine: 2011 Date of Influenza Vaccine: fall 2012 Infectious Disease History: Denies: Hx Clostridium Difficile, Hx Hepatitis, Hx Human Immunodeficiency Virus (HIV), Hx of Known/Suspected MRSA, Hx Shingles, Hx Tuberculosis, Hx Known/ Suspected VRE, Hx Known/Suspected VRSA, History Other Infectious Disease - Family History Known Family History: Positive: Cardiac Disease - father and grandfather - DC. mother - CHF, Hypertension, Diabetes, Other - Brain cancer, Parkinson's - Social History Occupation: Employed Part-time Lives: Alone Alcohol Use: Rare Hx Substance Use: No Substance Use Type: Reports: None Hx Tobacco Use: No Smoking Status (MU): Never Smoked Tobacco Review of Systems Positive: Skin Diaphoresis. Negative: Fever, Chills Negative: Erythema Negative: Sore Throat Positive: Palpitations, Chest Pain Positive: Shortness Of Breath. Negative: Cough Negative: Abdominal Pain, Vomiting, Nausea Negative: dysuria, hematuria Negative: Myalgia, Edema Negative: Rash Neurological: Other - pos: lightheadedness, neg: dizziness Positive: Headache All Other Systems Reviewed And Are Negative: Yes Physical Exam - Summary Physical Exam Summary: Constitutional: Well-developed, Well-nourished, Alert. (-) Distressed Skin: Warm, Dry HENT: Normocephalic; Atraumatic Eyes: Conjunctiva normal Neck: Musculoskeletal ROM normal neck. (-) JVD, (-) Stridor, (-) Tracheal deviation Cardio: Rhythm regular, rate normal, Heart sounds normal; Intact distal pulses; The pedal pulses are 2+ and symmetric. Radial pulses are 2+ and symmetric. (-) Murmur Pulmonary/Chest wall: Effort normal. (-) Respiratory distress, (-) Wheezes, (-) Rales Abd: Soft, (-) epigastric tenderness, (-) Distension, (-) Guarding, (-) Rebound Musculoskeletal: (-) Edema Lymph: (-) Cervical adenopathy Neuro: Alert, Oriented x3 Psych: Mood and affect Normal Triage Information Reviewed: Yes Vital Signs Reviewed: Yes Diagnostics - Laboratory Result Diagrams: 04/08/19 05:54 04/08/19 05:54 Lab Statement: Any lab studies that have been ordered have been reviewed, and results considered in the medical decision making process. - Radiology CXR Radiology Interpretation Completed By: Radiologist Summary of Radiographic Findings: IMPRESSION: #. No evidence for pulmonary edema or other acute cardiopulmonary process. ED provider has reviewed this report. - EKG 1128 Summary of EKG Findings: EKG is paced at 67 bpm. No STEMI. Re-Evaluation - Re-Evaluation 1 Re-Evaluation Time: 12:25 Change: Improved Comment: Discussing results with patient. She was feeling better after the nitro in the ED, but pain has returned and is rated 5 out of 10. 2 Re-Evaluation Time: 13:05 Change: Unchanged Comment: Discussing plans for admission, patient is agreeable to this. Chest Pain Course/Dx - Course Course Of Treatment: Patient is a 43 y/o F presenting with CP radiating down LUE onset approx 1000 this date.Associated sx: lightheadedness, diaphoresis, TINSLEY , SOB. Her blood sugar this AM was 215. EMS gave patient nitro and aspirin en route to mild relief. Patient does not have PMHx of DC, stents or CABG; however , she does have CHF, hypertrophic cardiomyopathy, and an implanted defibrillator , which she does not think it went off. Patient is being evaluated for a heart transplant and has a work-up every 6 months at [facility]. Labs shows RBC : 4.95, sodium: 133, potassium: 5.2, CO2: 21, BUN: 27, creatinine: 1.27, BUN/C ratio: 21.3, glucose: 203, lactic acid: 2.6, troponin: 0.11. EKG is paced at 67 bpm, no STEMI. CXR shows "No evidence for pulmonary edema or other acute cardiopulmonary process.". Reviewed patient's medical records, and she had a clean cardiac catherization in 2014. Consulted with Dr. Pinto, cardio, recommends observation to r/o DC. Consulted with Dr. Stack, Hospitalist, who will admit patient. - Diagnoses Provider Diagnoses: Unstable angina - Provider Notifications Discussed Care Of Patient With: Sherrie Stack - hospitalist Time Discussed With Above Provider: 13:02 Instructed by Provider To: Admit As Inpatient - Critical Care Time Critical Care Time: 30-74 min - 60 mins CCT Discharge - Sign-Out/Discharge Documenting (check all that apply): Patient Departure - ADMIT Patient Received Moderate/Deep Sedation with Procedure: No - Discharge Plan Condition: Good Disposition: ADMITTED TO [facility] - Billing Disposition and Condition Condition: GOOD Disposition: Admitted to [facility] - Attestation Statements Document Initiated by Scribe: Yes Documenting Scribe: Alicia Mehta Provider For Whom Scribe is Documenting (Include Credential): Dr. Arian Hernandez MD Scribe Attestation: IAlicia, scribed for Dr. Arian Hernandez MD on 04/08/19 at 1048. Scribe Documentation Reviewed: Yes Provider Attestation: The documentation as recorded by the scribe, Ailcia Mehta accurately reflects the service I personally performed and the decisions made by me, Dr. Arian Hernandez MD Status of Scribe Document: Viewed Consult Consult: 1350: Consult with Dr. Pinto, small offset printer Recommends observation to r/o DC.
[2019-04-07] MEDS ORDERED: Nitroglycerin TAB 0.4 MG* 0.4 MG TAB SL ONE (11:27)
[2019-04-07 11:55] LABS: ABS Basophils 0.1 10^3/ul (0-0.2); ABS Eosinophils 0.1 10^3/ul (0-0.6); ABS Lymphocytes 1.9 10^3/ul (1.0-4.8); ABS Monocytes 0.8 10^3/ul (0-0.8); ABS Neutrophils 4.6 10^3/ul (1.5-7.7); Eosinophil % 1.2 %; Hematocrit 44 % (35-47); Lymphocyte % 26.1 %; Mean Corpuscular HGB Conc 34 g/dL (31-36); Mean Corpuscular Hemoglobin 30 pg (27-31); Mean Corpuscular Volume 89 fL (80-97); Mean Platelet Volume 8.9 fL (7.4-10.4); Nucleated Red Blood Cells % 0.1; Platelet Count 220 10^3/uL (150-450); Red Blood Count 4.95 10^6 /uL (3.70-4.87); Red Cell Distribution Width 13 % (10.5-15); White Blood Count 7.4 10^3/uL (3.5-10.8)
[2019-04-07 12:17] LABS: Troponin I 0.11 ng/mL (<0.04)
[2019-04-07] MEDS ORDERED: nitroGLYCERIN DRIP* 25,000 MCG/250 ML BTL IV ONE (12:26)
[2019-04-07 12:41] LABS: ALT 25 U/L (7-52); AST 19 U/L (13-39); Albumin 3.8 g/dL (3.2-5.2); Albumin/Globulin Ratio 1.4 (1-3); Alkaline Phosphatase 46 U/L (34-104); Anion Gap 9 mmol/L (2-11); BUN/Creatinine Ratio 21.3 (8-20); Blood Urea Nitrogen 27 mg/dL (6-24); CO2 Carbon Dioxide 21 mmol/L (22-32); Calcium 9.4 mg/dL (8.6-10.3); Chloride 103 mmol/L (101-111); EGFR African American 55.6 (>60); EGFR Non-African American 45.9 (>60); Globulin 2.7 g/dL (2-4); Glucose 203 mg/dL (70-100); Potassium 5.2 mmol/L (3.5-5.0); Sodium 133 mmol/L (135-145); Total Protein 6.5 g/dL (6.4-8.9)
[2019-04-07] MEDS ORDERED: NS 0.9% 1000 ML** 1,000 ML IV ONE (13:03)
[2019-04-07] MEDS ORDERED: Albuterol HFA INHALER* 8 gm MDI INH PRN (15:04)
[2019-04-07] MEDS ORDERED: oxyCODONE/Acetamin 5/325 MG* TAB PO PRN (15:17)
[2019-04-07 15:20] LABS: Troponin I 0.11 ng/mL (<0.04)
[2019-04-07] MEDS: Acetaminophen TAB* 325 MG PO PRN ×2 (16:45→20:47)
[2019-04-07 18:01] LABS: Troponin I 0.12 ng/mL (<0.04)
--- NOTE | 2019-04-07 18:54 | ECHO ---
*[facility]* [place] [address] Fax #: [phone] Transthoracic Echocardiogram Patient: Savi, Height: 71 in / Rupal 180.3 cm : 1975 Weight: 191.6 lb / Study Date: 04/07/2019 87.1 kg Age: 43 BP: 125 / 78 Gender: F BMI/BSA: 26.8 kg/m^2 HR: 70 bpm / 2.07 m^2 *Tassel Clipper: * [facility] *Referring Physician: * Wendy Acosta *Reading Physician: * Bhupinder Pinto MD Indications: Chest Pain, unspecified. History: Non-ischemic cardiomyopathy, with an ejection fraction of 30%. PMH: Cardiomyopathy. Functional status: Renal failure. Risk factors: Diabetes mellitus. Labs, prior tests, procedures, and surgery: ICD system implantation. Conclusions Summary: 1. Left ventricle: Systolic function is moderately to severely reduced by visual assessment. The estimated ejection fraction is 30-35%. Moderate diffuse hypokinesis. 2. Right ventricle: Systolic function is low normal. 3. Mitral valve: There is trace to mild regurgitation. 4. Aortic valve: There is trace regurgitation. 5. Tricuspid valve: There is mild regurgitation. 6. Pericardium, extracardiac: There is no significant pericardial effusion. 7. Pulmonary arteries: Systolic pressure is within the normal range. 8. Compared to study of 05/09/18, there is little change. Study data: Transthoracic echocardiogram. Procedure: Transthoracic echocardiography was performed. Image quality was good. Complete 2D, spectral Doppler, and color flow Doppler. Location: Emergency department. Patient status: Inpatient. Patient room number: ED-17. Rhythm: Paced rhythm. Findings Left ventricle: The cavity size is mildly dilated. There is moderate concentric hypertrophy. Systolic function is moderately to severely reduced by visual assessment. The estimated ejection fraction is 30-35%. Moderate diffuse hypokinesis. Doppler parameters are consistent with abnormal left ventricular relaxation (grade 1 diastolic dysfunction). Right ventricle: The cavity size is mildly dilated. Systolic function is low normal. Ventricular septum: There is abnormal interventricular septal wall motion consistent with an RV pacemaker. Left atrium: The atrium is mildly dilated. Right atrium: The atrium is at the upper limits of normal in size. Mitral valve: The leaflets are mildly thickened. There is no evidence of stenosis. There is trace to mild regurgitation. Aortic valve: The valve is trileaflet. The leaflets are mildly thickened. There is no evidence of stenosis. There is trace regurgitation. Tricuspid valve: The leaflets are normal thickness. There is no evidence of stenosis. There is mild regurgitation. Pulmonic valve: The leaflets are normal thickness. There is no evidence of stenosis. There is trace regurgitation. Aorta: Aortic root: The aortic root is upper normal in size. Ascending aorta: The ascending aorta is mildly dilated. Aortic arch: The aortic arch is appears normal. Pericardium: A prominent pericardial fat pad is present. There is no significant pericardial effusion. Pulmonary arteries: The main pulmonary artery is normal-sized. Systolic pressure is within the normal range. Systemic veins: Inferior vena cava: The vessel is dilated. The respirophasic diameter changes are in the normal range (>= 50%). Measurements Left ventricle Value Ref Aortic valve Value Ref YESICA, LAX (H) 5.5 cm 3.8 - 5.2 Latonya diam, ED 2.7 cm ----- ESD, LAX (H) 4.2 cm 2.2 - 3.5 Peak v, S 1.15 m/sec ----- FS, LAX (L) 22 % 27 - 45 VTI, S 21.6 cm ----- PW, ED, LAX (H) 1.5 cm 0.6 - 0.9 Mean grad, S 3.0 mm Hg ----- FS (L) 22 % 27 - 45 Peak grad, S 5.0 mm Hg ----- PW, ED (H) 1.5 cm 0.6 - 0.9 LVOT/AV, VTI ratio 0.69 ----- E', lat latonya, TDI (L) 7.3 cm/sec >=10.0 E/e', lat latonya, 7 Mitral valve Value Ref TDI Peak E 0.51 m/sec ----- E', med latonya, TDI (L) 4.6 cm/sec >=7.0 Peak A 0.63 m/sec --- -- E/e', med latonya, 11 Decel time 236 ms ----- TDI Peak E/A ratio 0.8 ----- E', avg, TDI 6.0 cm/sec E/e', avg, TDI 9 <=14 Pulmonic valve Value Ref Peak v, S 0.95 m/sec ----- LVOT Value Ref Peak grad, S 4.0 mm Hg ----- Peak gauri, S 0.83 m/sec VTI, S 15.0 cm Tricuspid valve Value Ref Mean grad, S 1 mm Hg TR peak v 2.2 m/sec <=2.8 Peak RV-RA grad, S 19 mm Hg ----- Ventricular septum Value Ref IVS, ED (H) 1.3 cm 0.6 - 0.9 Aortic root Value Ref Root diam 3.5 cm <4.2 Right ventricle Value Ref YESICA, LAX 3.3 cm Ascending aorta Value Ref YESICA minor ax, A4C (H) 4.8 cm 1.9 - 3.5 AAo AP diam, S 4.0 cm ----- mid Pressure, S 27 mm Hg Aortic arch Value Ref Arch diam 2.5 cm ----- Left atrium Value Ref AP dim, ES 3.80 cm 2.70 - Decending aorta Value Ref 3.80 Rosalba peak gauri 1.33 m/sec ----- ML dim, A4C 4.2 cm SI dim, A4C 5.6 cm Pulmonary artery Value Ref Vol/bsa, ES, 1-p 28 ml/m^2 11 - 40 Pressure, S 23.0 mm Hg ----- A4C Vol/bsa, ES, A/L 28 ml/m^2 16 - 34 Inferior vena cava Value Ref Diam 2.2 cm ----- Right atrium Value Ref SI dim, ES 5.0 cm 3.4 - 5.3 ML dim, ES, A4C 4.4 cm 2.6 - 4.4 SI dim, ES, A4C 5.0 cm 3.4 - 5.3 Estimated RAP 8 mm Hg Legend: (L) and (H) severino values outside specified reference range. Prepared and electronically signed by Bhupinder Pinto MD 04/07/2019 18:54
--- NOTE | 2019-04-07 19:05 | HP ---
CC: Ms. Gallo; Dr. Pinto * [facility] MEDICINE HISTORY AND PHYSICAL: DATE OF ADMISSION: 04/06/19 PROVIDER: Wendy Acosta NP. PRIMARY CARE PROVIDER: Cleo. ATTENDING PHYSICIAN WHILE IN THE HOSPITAL: Dr. Sherrie Stack * (dictated by Wendy Acosta NP). CHIEF COMPLAINT: Chest pain. HISTORY OF PRESENT ILLNESS: Ms. Hou is a 43-year-old female with a history of mitochondrial myopathy; hypertrophic cardiomyopathy; history of congestive heart failure; chronic kidney disease stage 3; hypertension; diabetes, on an insulin pump, who presented to the emergency room via EMS with the complaints of chest pain. The patient reports that while driving to work this morning at approximately 10 a.m., she developed chest pain. She reports when she walked from her car into [facility] and started walking upstairs to where her locker was, she developed chest pain. She reports that the chest pain is in the center of her chest and radiates to her left arm. She reports it as a sharp burning type pain, rated at a 5 to 6. She also reports that she felt mildly lightheaded with the chest pain. Due to these symptoms, she presented to the emergency room for further evaluation. En route to the emergency room, the patient received nitro sublingual and aspirin 324 mg p.o. While in the emergency room, she had routine lab work drawn and was started on a nitroglycerin drip. The patient reports she has had no significant improvement of her pain on the nitro drip. The patient had routine lab work that showed a troponin of 0.11 and an elevated lactic acid of 2.6. Her BUN and creatinine were 27 and 1.7. CBC was within normal limits with the exception of her RBCs were 4.95. Due to her complaints of chest pain and her history of hypertrophic cardiomyopathy, mitochondrial myopathy, we were asked to see and evaluate her for admission. PAST MEDICAL HISTORY: Significant for: 1. Mitochondrial myopathy. 2. Hypertrophic cardiomyopathy. 3. Hard of hearing, wears hearing aids. 4. CHF. 5. Chronic kidney disease stage 3. 6. Hypertension. 7. Diabetes, on an insulin pump. 8. Migraines. 9. ICD placement. PAST SURGICAL HISTORY: 1. Tonsillectomy. 2. Left knee surgery. 3. Testicle removed. 4. ICD placement. 5. Right heart cath in December 2018. HOME MEDICATIONS: Include: 1. Trulicity 0.75 on Wednesdays. 2. Metoprolol succinate 50 mg p.o. daily. 3. Losartan 50 mg at bedtime. 4. Estrogel 2 mg p.o. q.a.m. 5. Spironolactone 25 mg 5 days a week. 6. Wellbutrin 150 mg p.o. daily. 7. Zoloft 100 mg p.o. daily. 8. Lyrica 50 mg p.o. b.i.d. 9. Magnesium oxide 400 mg p.o. b.i.d. 10. Maxalt as needed for migraines. ALLERGIES: No known drug allergies. FAMILY HISTORY: Father with ID at age 47. Mother with a history of CHF that started in her 60s. Father with diabetes. Maternal grandmother with breast cancer. SOCIAL HISTORY: The patient does not smoke. She reports rare alcohol use. Denies any illicit drug use. She works at [employer]. She is single. Surrogate decision maker in the event she is unable to make her own decisions is Colette Weeks, her phone number is [phone]. She is a full code. REVIEW OF SYSTEMS: She denies any fever or recent illness. Denies any unintended weight loss. She does report chest pain that radiates to her left arm. She denies any edema. She denies cough, hemoptysis, or shortness of breath. She did report some nausea. Denied any diarrhea, abdominal pain, hematuria, dysuria, focal weakness or sensory loss. Denies any visual complaints, dysphagia, arthralgias, myalgias, rashes, or lesions. She does report increased anxiety. PHYSICAL EXAMINATION GENERAL: Ms. Hou is a 43-year-old female. She is alert and oriented, resting on the stretcher in the emergency room, she is in no acute distress. VITAL SIGNS: Blood pressure 130/71, heart rate 71, respirations are 17, O2 saturation 96%, temperature was 98.2. HEENT: Head is atraumatic, normocephalic. Eyes: EOMs are intact. Sclerae anicteric and not pale. Oral mucosa appeared to be moist. NECK: Supple. LUNGS: Clear to auscultation bilaterally. No wheezes, rales, or rhonchi. CARDIAC: S1, S2. Regular rate and rhythm. No murmurs, rubs, or gallops. ABDOMEN: Soft and nontender. Bowel sounds are present x4. EXTREMITIES: She is able to move all 4 extremities. Pedal pulses are +2 bilaterally. There is no clubbing or cyanosis. NEUROLOGIC: She is awake, alert, and oriented x3. Speech is clear. Thought process is intact. There is no gross focal deficits. SKIN: Intact. DIAGNOSTIC STUDIES/LAB DATA: CBC: WBCs are 7.4, RBCs 4.95, hemoglobin 15.0, hematocrit is 44, platelet count is 220. Sodium 133, potassium 5.2, chloride 103, carbon dioxide was 21, anion gap was 9, BUN was 27, creatinine 1.27, glucose was 203, lactic acid 2.6, calcium 9.4. ASTs were 19, ALTs were 25, alkaline phosphatase 46. Troponin is 0.11. Chest x-ray, radiologist's impression: No evidence of pulmonary edema or acute cardiopulmonary process. She had an electrocardiogram, which showed a paced rhythm at a rate of 67. ASSESSMENT AND PLAN: Ms. Hou is a 43-year-old female with past medical history significant for hypertrophic cardiomyopathy, mitochondrial myopathy, chronic kidney disease stage 3, hypertension, diabetes, who presented to the emergency room with complaints of chest pain. She would be admitted under observation for: 1. Chest pain. We will rule out acute coronary syndrome. The patient does have an elevated troponin of 0.11. We will continue to trend her troponins. Her troponin appears to be at her baseline since 2015. I will get a repeat EKG in the morning. I will get a transthoracic echocardiogram and a nuclear exercise stress test tomorrow as per Dr. Pinto's recommendations. I am going to stop her nitro drip at this time and I will treat her chest pain as she has shown no significant improvement with the initiation of nitroglycerin or nitroglycerin sublingual. She did receive aspirin 324 mg by EMS. I will continue her on aspirin and her metoprolol as previously prescribed. I will check her lipid profile. 2. Diabetes. The patient does wear an insulin pump with U100 insulin. She has a basal rate from 12 midnight to 6 a.m. of 0.85 and from 6 a.m. to 12 midnight of 0.75. She does bolus with meals based on calculations in her insulin pump. We will continue her on her insulin pump with bolus dosing as per the patient's pump. She will notify staff of the dose of bolus and staff will notify the patient of her fingerstick to calculate her bolusing with meals. 3. Depression and anxiety. The patient will continue on Wellbutrin and Zoloft as previously prescribed. 4. Hypertrophic cardiomyopathy, mitochondrial myopathy. She will continue on metoprolol, losartan, spironolactone, and magnesium oxide, aspirin 81 mg p.o. daily as previously prescribed. We will hold her metoprolol tomorrow morning prior to her nuclear stress test. 5. Elevated lactic acid. The patient does have an elevated lactic acid to 2.5. She does not appear to have an underlying infectious process at this time, she is afebrile. Her chest x-ray is clear. I do have a urine that is currently pending. She denies any urinary symptoms. I do not feel that her elevation in lactic acid is due to underlying infection at this time. 6. FEN. She can have heart healthy, no caffeine diet. 7. Code status: She is a full code. 8. DVT prophylaxis: I will place her on heparin subcu. TIME SPENT: Time spent on this admission was approximately 60 minutes, greater than half that time was spent at the bedside reviewing events leading thus far to her hospitalization, performing physical exam, and reviewing my plan of care. I have discussed this with my attending, Dr. Sherrie Stack; she is in agreement with my plan. WENDY ACOSTA, NEGRITO [id number]/[facility] #: [id number] MARGA
[2019-04-07] MEDS: Spironolactone TAB* 25 MG PO SCH (19:20)
[2019-04-07] MEDS: Pregabalin CAP(*) 50 MG PO SCH (20:46)
[2019-04-07] MEDS: Heparin VIAL(*) 5000 UNITS/ML VIAL (FIVE THOUSAND) SUBCUT SCH (20:48)
[2019-04-07 21:06] LABS: Troponin I 0.12 ng/mL (<0.04)
[2019-04-08] MEDS ORDERED: Dextrose 50% Syringe 50 ML* 25 GM/50 ML SYRINGE IV PUSH PRN (02:26)
--- NOTE | 2019-04-08 02:28 | PN ---
Progress Note - Progress Note Date of Service: 04/08/19 Note: Patient with insulin pump - will be running out of insulin in the AM. Will start lispro sliding scale for the day. If unable to get more insulin for her pump today recommend lantus coverage this evening as well.
[2019-04-08 07:03] LABS: ABS Eosinophils 0.1 10^3/ul (0-0.6); ABS Lymphocytes 2.1 10^3/ul (1.0-4.8); ABS Monocytes 0.7 10^3/ul (0-0.8); ABS Neutrophils 3.2 10^3/ul (1.5-7.7); Hematocrit 46 % (35-47); Hemoglobin 15.5 g/dL (12.0-16.0); Lymphocyte % 34.7 %; Mean Corpuscular HGB Conc 34 g/dL (31-36); Mean Corpuscular Hemoglobin 31 pg (27-31); Mean Corpuscular Volume 91 fL (80-97); Mean Platelet Volume 9.4 fL (7.4-10.4); Nucleated Red Blood Cells % 0.1; Platelet Count 178 10^3/uL (150-450); Red Blood Count 5.06 10^6 /uL (3.70-4.87); Red Cell Distribution Width 13 % (10.5-15); White Blood Count 6.1 10^3/uL (3.5-10.8)
[2019-04-08 07:19] LABS: BUN/Creatinine Ratio 19.7 (8-20); Calcium 9.9 mg/dL (8.6-10.3); EGFR African American 61.1 (>60); EGFR Non-African American 50.5 (>60); HDL Cholesterol 28.9 mg/dL; Potassium 4.6 mmol/L (3.5-5.0)
[2019-04-08 07:25] LABS: Troponin I 0.1 ng/mL (<0.04)
[2019-04-08] MEDS: Insulin LISPRO* 1 UNITS UNIT SUBCUT SCH ×3 (07:43→16:47)
[2019-04-08] MEDS: Pregabalin CAP(*) 50 MG PO SCH (08:22)
[2019-04-08] MEDS: Spironolactone TAB* 25 MG PO SCH (08:22)
[2019-04-08] MEDS: Heparin VIAL(*) 5000 UNITS/ML VIAL (FIVE THOUSAND) SUBCUT SCH (08:23)
[2019-04-08] MEDS ORDERED: Metoprolol Succinate XL TAB* 50 MG PO SCH (09:00)
[2019-04-08] MEDS ORDERED: Estradiol TAB(NF) 2 MG TAB PO SCH (09:00)
[2019-04-08] MEDS ORDERED: BuPROPion XL* 150 MG TAB.XL PO SCH (09:00)
[2019-04-08] MEDS ORDERED: Aspirin EC TAB* 81 MG TAB.EC PO SCH (09:00)
[2019-04-08] MEDS ORDERED: Magnesium Oxide TAB* 400 MG PO SCH (09:00)
[2019-04-08] MEDS ORDERED: Losartan TAB* 25 MG PO SCH (09:00)
[2019-04-08] MEDS ORDERED: Sertraline* 100 MG TAB PO SCH (09:00)
[2019-04-08] MEDS ORDERED: Regadenoson* 0.4 MG/5 ML SYRINGE ONE (10:50)
[2019-04-08] MEDS ORDERED: Aminophylline IV* 25 MG/ML 10 ML VIAL ONE ×2 (10:51→10:52)
--- NOTE | 2019-04-08 12:29 | CONS ---
CC: Dr. Steph Orozco * CONSULTATION REPORT: DATE OF CONSULT: 04/08/19 ATTENDING PHYSICIAN: Dr. Bhupinder Pinto * (dictated by Breanna Dela Cruz NP) PRIMARY SOLE EDGE INKER MACHINE: Dr. Bhupinder Pinto. PRIMARY ADVANCED HEART FAILURE SPECIALIST: At [facility], Dr. Steph Orozco. Phone number [phone]. PRIMARY METAL WIRE COATING OPERATOR: Dr. Lagunas." PRIMARY PHYSICIAN: SUZI Fernandez CHIEF COMPLAINT: Shortness of breath, chest pain. HISTORY OF PRESENT ILLNESS: This is a pleasant 43-year-old female patient who was biologically born as a male; however, has been taking estrogen replacement therapy for many years. 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 She has been following Dr. Steph Orozco at [facility] for possible transplant evaluation, although most recently in December of 2018 the patient states that she was told that she is "not sick enough for the list yet." She also suffers from hypertension, hyperlipidemia, chronic kidney disease stage 3, and insulin-dependent diabetes mellitus. According to the patient, her most recent evaluation was December of [address] Steph Orozco. At that time, she had a right heart catheterization which according to the patient was unremarkable. Due to ongoing hyperkalemia, Aldactone was reduced, lisinopril was stopped, and she was instead placed on losartan therapy. She recently had a remote device interrogation on 03/19/19 which she was able to share with me. According to the device report on her phone, she was ventricular paced 98.3% at that time, sensing and lead impendence were appropriate. She had no events of high atrial rates and no arrhythmias. She states that she started working at [employer] in December, initially had profound fatigue although that has started to improve. She reports a 10-pound weight loss since that time. She states she chronically has periods of chest pain described as sharp in nature, typically exacerbated by moving left upper extremity and palpation. Apparently, on 04/07/19 at 0100, she woke up, checked her blood glucose, it was 171. She took 1.3 units bolus insulin and went back to bed. She was running late for work and on her van to work around 10 a.m. developed shortness of breath while walking, then developed sharp chest pain located near her left breast while going up a flight of stairs with associated shortness of breath. She became dizzy, she sat down, symptoms improved. She states that the pain was worse with lifting left upper extremity above shoulder and also pressing on focal point of chest pain which she is able to pin point with a finger located directly above her left breast. The patient states episode was more severe than her typical episodes, thus she opted for evaluation at [facility]. She reports blood pressure at [facility] is 165/100. The patient was taken to [facility] via EMS. During transport, she was given aspirin. Basic blood work was obtained, troponin demonstrated elevation at 0.11, peaked at 0.12 on 04/07/19. Upon review of prior cardiac enzymes it appears that she has had troponinemia dating back to 2014, typically ranging from 0.08 to 0.12. She had a chest x-ray obtained on , per Radiology report, no evidence of pulmonary edema or acute cardiopulmonary process. She was admitted to [address] [place] [address] for chest pain to rule out ACS and we were asked to evaluate the patient in consultation. She clearly offers no complaints at this time. She is resting in bed comfortably. Denies any recent illness, infection, or hospitalization. PAST MEDICAL HISTORY: Includes: 1. Nonischemic cardiomyopathy (hypertrophic mitochondrial cardiomyopathy) dating back to 2009. 2. Hypertension. 3. Hyperlipidemia. 4. Chronic kidney disease stage 3. 5. History of insulin-dependent diabetes mellitus. 6. Estrogen replacement. PAST SURGICAL HISTORY: 1. Left orchiopexy. 2. Right and left heart cath 2014. 3. Right heart catheterization December 2018. 4. BiV ICD March 2017. 5. Tonsillectomy. 6. Left knee surgery. MEDICATIONS: Home Medications: According to admission med rec she is on: 1. Humalog insulin. 2. Trulicity 0.75 mg subcutaneous as directed. 3. Aspirin 81 mg a day. 4. Ventolin HFA 2 puffs inhalation q.4h p.r.n. 5. Tylenol 650 mg p.o. q.6h p.r.n. 6. Estrace 2 mg a day. 7. Losartan 50 mg a day. 8. Lyrica 50 mg p.o. b.i.d. 9. Metoprolol 50 mg a day. 10. Mag oxide 400 mg a day. 11. Zoloft 100 mg a day. 12. Aldactone 25 mg. 13. Bupropion 150 mg a day. ALLERGIES: No known drug allergies. FAMILY HISTORY: Father had a myocardial infarction at the age of 47, at the age of 61, otherwise unremarkable. SOCIAL HISTORY: The patient is single, lives at home alone. 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 She denies alcohol abuse, denies tobacco abuse, denies illegal drug use. REVIEW OF SYSTEMS: All systems have been reviewed and otherwise negative except as mentioned in the HPI. PHYSICAL EXAM: Temperature 97.6, pulse 61, respirations 16, oxygenation 98% on room air, blood pressure 123/81. General: The patient is lying in bed upon entering the room, is in no apparent distress. Cooperative with exam. Appears well nourished. HEENT: Head is atraumatic and normocephalic. Oral mucosa is moist. Tongue is midline. Neck: Supple. Trachea midline. No JVD. No carotid bruits. Cardiac: Normal S1 and S2. Regular rhythm. No gallop or rub. Lungs: Auscultated posteriorly, no evidence of adventitious breath sounds. Respirations nonlabored at a rate of 16. /GI: Abdomen is soft, nontender, and nondistended. Normoactive bowel sounds x4. Extremities: No pedal edema, no clubbing, no cyanosis. Peripheral Vascular: 2+ brachial and dorsalis pedis pulses palpated bilaterally and symmetrically. Psych: Appropriate affect, A and O x3. DIAGNOSTIC STUDIES/LAB DATA: Blood work obtained at [facility] on : Sodium 137, potassium 4.6, chloride 104, carbon dioxide 25, BUN 23, creatinine 1.17. Troponin peaked at 0.12 on 04/07/19. LDL 68. White count 6.1, hemoglobin 15.5, hematocrit 46, platelets 178. ECG obtained on 04/08/19 demonstrates atrial ventricular paced rhythm, rate 60. Underlying rhythm appears to be sinus. ASSESSMENT AND PLAN: 1. Atypical greater than typical complaints of chest pain, reproducible with palpation, movement of left upper extremity and inspiration; pain is currently 3 /10 and again was worse when I physically palpated focal region and had the patient take a deep breath in. The patient has chronic troponinemia dating back to 2014. Given risk factors including diabetes, hypertension, hyperlipidemia, and cardiomyopathy, we will proceed with risk stratification via exercise nuclear stress test. The patient has ventricular paced ECG, although there appears to be no apparent acute changes. In 2014, when she had her last left heart catheterization, she had no significant coronary artery disease. Continue aspirin, beta-gardenia therapy. We will follow closely. 2. History of hypertrophic mitochondrial cardiomyopathy dating back to 2009. LVEF 30% to 35% on 04/07/19 echocardiogram. The patient follows with Dr. Steph Orozco, advanced heart failure specialist at [facility]. According to the patient, she is being evaluated for possible transplant. However, she was told in December of 2018 that unfortunately she is not sick enough to be listed at this time. We will continue losartan, metoprolol, and Aldactone therapy. She has a tendency for hyperkalemia, thus in the past Dr. Orozco, had discontinued ELA inhibitor and instead placed the patient on losartan therapy. The patient appears compensated on exam. Denies orthopnea, shortness of breath, edema, or weight gain; in fact she reports 10 pound weight loss. NYHA functional class II. 3. History of hypertension. Blood pressure is currently 123/81. Continue ARB and beta blockade therapy. 4. History of hyperlipidemia. LDL this admit was 68. 5. Disposition. Pending course. Dr. Bhupinder Pinto has personally seen and examined the patient and agrees with the above assessment and plan. We will follow after exercise nuclear stress test and make further recommendations. Thank you for this kind consultation. Any future questions or concerns, please do not hesitate to contact our practice. BREANNA DELA CRUZ NP [id number]/[facility] #: [id number] MARGA
[2019-04-08 15:44] VITALS: BP 121/78
--- NOTE | 2019-04-08 17:29 | CONS ---
CARDIOLOGY CONSULTATION NOTE: DATE OF CONSULT: 04/08/19 INDICATION FOR CONSULTATION: Chest pain, cardiomyopathy. HISTORY OF PRESENT ILLNESS: The patient is a 43-year-old person with a history of nonischemic cardiomyopathy, history of biventricular ICD implant. Please see Breanna Dela Cruz nurse practitioner's full consultation for details of her presentation, past medical history, physical exam. This patient was admitted to the hospital with chest pain. No significant EKG changes; however, they are ventricularly paced 100% of the time. The patient's troponin levels were minimally elevated at 0.11, which is always this patient's baseline. The patient's chest x-ray was unremarkable. Laboratory studies were unchanged. The patient underwent a chemical nuclear stress test today, which showed essentially normal perfusion throughout the myocardium. No evidence of ischemia or infarction. Her calculated ejection fraction was 31% with global hypokinesis. This is unchanged from previous studies. In speaking with the patient, the patient no longer has chest discomfort and is feeling quite comfortable. IMPRESSION AND PLAN: At this point, I am not exactly sure what the cause of the discomfort is. I do not think this patient had a cardiac event, did not have myocardial event. At this point, I do not think any medication changes are necessary. I do not think any other cardiac testing is necessary. The patient is stable for discharge home. I will see the patient in followup as an outpatient. [id number]/[facility] #: [id number] MARGA
--- NOTE | 2019-04-09 03:35 | DS ---
CC: SUZI Fernandez; Dr. Pinto * DISCHARGE SUMMARY: DATE OF ADMISSION: DATE OF DISCHARGE: PROVIDER: SUZI Espitia ATTENDING PHYSICIAN: Dr. Fabio Lynne * (dictated by SUZI Espitia). PRIMARY CARE PROVIDER: SUZI Fernandez CHIEF INTERNAL AUDITOR: Dr. Pinto. PRIMARY DIAGNOSIS: Chest pain, noncardiac. SECONDARY DIAGNOSES: 1. Mitochondrial myopathy. 2. Hypertrophic cardiomyopathy, status post pacemaker and implantable defibrillator. 3. Hard of hearing, wears hearing aids. 4. Congestive heart failure with reduced ejection fraction. 5. Chronic kidney disease, stage 3. 6. Hypertension. 7. Diabetes, on insulin pump. 8. Migraines. 9. Depression/anxiety. STUDIES WHILE IN THE HOSPITAL: Transthoracic echocardiogram on 04/07/19 compared to study of 05/09/18, there is little change. Please see report for further details. Ejection fraction remains 30% to 35%. Nuclear medicine stress test determined as low-cardiac risk by Dr. Pinto and determined the patient did not have myocardial event. DISCHARGE MEDICATIONS: 1. Ibuprofen 800 mg p.o. t.i.d. p.r.n. pain. Continued home medications: 1. Insulin lispro via insulin pump. 2. Trulicity 0.75 mg subcu weekly. 3. Aspirin 81 mg p.o. daily. 4. inhaler 2 puffs inhaled q.4 hours p.r.n. shortness of breath or wheezing. 5. Acetaminophen 650 mg p.o. 4-6 hours p.r.n. pain. 6. Estradiol 2 mg p.o. daily. 7. Zyrtec 10 mg p.o. daily p.r.n. 8. Losartan 50 mg p.o. daily. 9. Lyrica 50 mg p.o. b.i.d. 10. Nitroglycerin 0.4 mg sublingual q.5 minutes p.r.n. chest pain. 11. Metoprolol succinate 50 mg p.o. daily. 12. Magnesium oxide 400 mg p.o. daily. 13. Sertraline 100 mg p.o. daily. 14. Spironolactone 25 mg p.o. Sunday, Sunday, Sunday, , Sunday. 15. Wellbutrin 150 mg p.o. daily. HISTORY OF PRESENT ILLNESS/HOSPITAL COURSE: Rupal Hou is a 43-year-old female with past medical history of mitochondrial myopathy and hypertrophic cardiomyopathy, who reports to the emergency department on 04/07/19 after experiencing shortness of breath and chest pain. Please see history and physical report by Wendy Acosta, on 04/06/19, for further details. During the hospital stay, the patient continued to have some left- sided chest pain, which did improve. She was found to be without an acute cardiac event by Cardiology. 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 On the day of discharge, the patient denies difficulty breathing, abdominal pain, nausea, vomiting, palpitations, headache. It is possible the patient is experiencing musculoskeletal pain given the lifting of heavy trays at work and the reproducible chest pain. It is possible that her chest pain is due to anxiety. She was continued on lispro sliding scale during her hospital stay and her home cardiac medications were continued including aspirin, losartan, metoprolol, magnesium oxide, and spironolactone. REVIEW OF SYSTEMS: An 11-point review of systems was completed and all pertinent positives and negatives are above in the HPI. All other systems are negative. PHYSICAL EXAMINATION: General: A middle-aged person lying upright in hospital bed, appearing in no acute distress, appearing comfortable. Head: Normocephalic, atraumatic. Eyes: PERRL. Sclerae anicteric. ENT: Mucous membranes moist. Cardio: Regular rate and rhythm without murmurs, rubs, or gallops. Reproducible chest pain to palpation of left chest approximately in the midclavicular area approximately fifth intercostal space. Respiratory: Clear to auscultation bilaterally. Abdomen: Abdomen is soft, nontender, and nondistended. Normoactive bowel sounds in all 4 quadrants. Extremities: No clubbing, cyanosis, or edema. Neuro: The patient is alert and oriented x3 without focal deficits. Skin: Warm, dry, and intact. DISCHARGE PLAN: Diet: Consistent carbohydrate diet. Activity: The patient may return to normal activity as tolerated. The patient is advised to return to the emergency department if she experiences chest pain, shortness of breath if it is not improved with rescue inhaler use. The patient was advised to return to emergency department if she notices black stools or blood in her stool. She was additionally advised to try taking 800 mg ibuprofen p.o. t.i.d. p.r.n. chest pain, but advised to use caution given that she is also taking aspirin. Advised to consider moist heat or ice to the chest for relief. She is to continue her previous medications for her heart failure, cardiomyopathies of spironolactone, magnesium oxide, metoprolol, p.r.n. nitroglycerin, losartan, and aspirin. She is to continue her treatment of her diabetes with Trulicity and her insulin pump. For treatment of history of depression or anxiety, she is to continue her Wellbutrin and Zoloft. CONDITION ON DISCHARGE: Stable. DISPOSITION: Home. TIME SPENT: Approximately 45 minutes was spent on this discharge, approximately half of this time was spent at bedside. SUZI ESPITIA [id number]/[facility] #: [id number] MARGA
== END 2019-04-08 17:02 | disposition home or self-care (01) ==
LOC: ED 11:13 → MEDTELE 14:53 → INTOOBSV 14:53
PROVIDERS: ADMIT Nurse Practitioner; ATTEND Internal Medicine
DX: R07.89 Other chest pain (principal); G71.3 Mitochondrial myopathy, not elsewhere classified; I42.2 Other hypertrophic cardiomyopathy; Z95.0 Presence of cardiac pacemaker; Z97.4 Presence of external hearing-aid; I50.9 Heart failure, unspecified; I12.9 Hypertensive chronic kidney disease with stage 1 through stage 4 chronic kidney disease, or unspecified chronic kidney disease; E11.22 Type 2 diabetes mellitus with diabetic chronic kidney disease; N18.3 Chronic kidney disease, stage 3 (moderate); Z96.41 Presence of insulin pump (external) (internal); G43.909 Migraine, unspecified, not intractable, without status migrainosus; F41.8 Other specified anxiety disorders; Z79.82 Long term (current) use of aspirin
CPT/HCPCS: 36415; 71045; 78452; 80048; 80053; 80061; 83036; 83605; 84484; 85025; 93005; 93017; 93306; 96372; 96374; 99285; A9270-GY; A9502; G0378; J0280; J1644; J2785

== ENCOUNTER 2019-12-03 17:22 | Observation (INO) | payer BC, MEDICARE ==
--- OUTSIDE RECORDS SUMMARY | 2019-12-03 17:56 | XMS REPORT | Summary of Care ---
:1975 Author Organization [facility] Address [address] [place] [address] Care Team Providers Name Role Phone Ayana Gallo Primary Care Provider Reason for Visit Reason Comments Diabetes Encounter Details Date Type Department Care Team Description 11/18/2019 Office Visit KRYSTIN DIABETES Cara Cordero Type 2 diabetes mellitus with hyperglycemia, with long-term current use of insulin (Primary Dx); SUZI FAIR Vitamin D deficiency; [address] [place] [address] Insulin long-term use; [place] [address] Essential hypertension [id number] [phone] Allergies No Known Allergiesdocumented as of this encounter (statuses as of 11/18/2019) Medications Medication Sig Dispensed Refills Start End Date Status Date spironolactone Take 25 mg by 0 Active (ALDACTONE) 25 MG mouth 5 (five) tablet times a week pregabalin (LYRICA) Take 50 mg by 0 Active 50 MG capsule mouth Two Times Daily metoprolol Take 50 mg by 0 Active (TOPROL-XL) 100 MG mouth daily 24 hr tablet rizatriptan Take 10 mg by 0 Active (MAXALT) 10 MG mouth as needed tablet for MigraineMay repeat in 2 hours if needed levOCARNitine Take 660 mg by 0 Active (CARNITOR) 330 MG mouth Two Times 7 tablet Daily sertraline (ZOLOFT) Take 100 mg by 0 Active 100 MG tablet mouth daily 7 albuterol (VENTOLIN Inhale 2 puffs 0 Active HFA) 108 (90 Base) into the lungs MCG/ACT inhaler buPROPion Take 150 mg by 0 Active (WELLBUTRIN XL) 150 mouth 8 MG 24 hr tablet Calcium Take by mouth 0 Active Carb-Cholecalcifero l 600-800 MG-UNIT TABS cetirizine (ZYRTEC Take 10 mg by 0 Active ALLERGY) 10 MG mouth daily tablet Cholecalciferol (RA Take 2,000 0 Active VITAMIN D-3) 2000 Units by mouth units CAPS daily Bamkmjepqz-LDVU-Yho as needed 0 Active feine 50-300-40 MG CAPS MAGNESIUM OXIDE -MG Take 400 mg by 0 Active SUPPLEMENT PO mouth Two Times Daily Insulin Infusion by Does not 0 Active Pump (Hlidacky.cz 630G apply route INSULIN PUMP) KIT CONTOUR NEXT TEST Test Four Times 400 each Active test strip a Day 9 loperamide Take 2 mg by 0 Active (IMODIUM) 2 MG mouth Four capsule times daily as needed for Diarrhea ibuprofen Take 400 mg by 0 Active (ADVIL,MOTRIN) 400 mouth every 6 MG tablet (six) hours as needed for Pain losartan (COZAAR) Take 1 tablet 30 tablet 11 06/29/20 Active 50 MG tablet by mouth daily 9 20 estradiol (ESTRACE) Take 2 mg by 3 Active 1 MG mouth daily 9 tabletIndications: Type 2 diabetes mellitus with hyperglycemia, with long-term current use of insulin OneTouch Verio Flex TEST BLOOD 0 Active System w/Device Kit SUGAR 4 TIMES A 9 DAY Insulin Aspart 100 Continual 80 mL 1 Active UNIT/ML infusion via 0 Subcutaneous insulin pump. Solution (NOVOLOG) Max Daily Dose inclusive of priming and titration: 80 units. Dx code:E11.65 Dulaglutide 0.75 Inject 0.5 mLs 12 pen 1 Active MG/0.5ML into the skin 0 Subcutaneous once a week Solution Pen-injector (Shoot Extreme) dulaglutide Inject 0.5 mLs 12 pen 1 11/18/19 Discontinued (TRULICITY) 1.5 into the skin 9 20 MG/0.5ML injection once a week pen 1.5 mg/0.5 mL Start after 4 weeks of 0.75 mg weekly is completed HumaLOG 100 UNIT/ML Continual 60 mL 1 11/18/19 Discontinued Subcutaneous infusion via 9 20 (Formulary SolutionIndications insulin pump. change) : Type 2 diabetes Max Daily Dose mellitus with inclusive of hyperglycemia, with priming and long-term current titration: 65 use of insulin units. Dx code:E10.65 documented as of this encounter (statuses as of 11/18/2019) Active Problems Problem Noted Date Insulin long-term use 11/07/2018 Last Assessment & Plan: Basal rate 0.9 at midnight 0.8 at 6 am 0.75 at 2 pm Insulin:carb ratio Midnight 1:10 08:00 1:8 17:00 1:7 22:00 1:10 Sensitivity:30 Trulicity 0.75 mg weekly Anxiety and depression 07/11/2018 Overview: Overview: History: On wellbutrin and zoloft Assessment: Stable mood Plan: Continue home meds Chest pain 07/11/2018 Overview: Overview: History: CP, constant, some relief with NTG Assessment: Atypical. Mildly +Trop at OSH. 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 Assessment: On insulin pump A1c 8 Plan: Endo consult, SSI Adjustment disorder with mixed emotional features 06/12/2018 Chronic kidney disease 06/12/2018 Disorder of muscle 06/12/2018 Essential hypertension 06/12/2018 Polyneuropathy due to type 2 diabetes mellitus 06/12/2018 Vitamin D deficiency 06/12/2018 Diabetes-deafness syndrome maternally transmitted 05/18/2017 Cardiomyopathy, nonischemic 05/18/2017 Overview: EF20% Tmtr-nk-dpcsgr transgender person 05/18/2017 Elevated serum creatinine 05/18/2017 Chronic daily headache 12/20/2016 Migraine without aura and without status migrainosus, not intractable 2016 Mitochondrial DNA mutation 12/20/2016 Overview: Overview: History: MIDD Assessment: Cardiomyopathy, non-ischemic, noted in mid 30s (2009); classified initially as dilated and then hypertrophic though cardiac MRI not typical of either Diabetes since late 30s (2010) 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 (2002); hearing aids worn Plan: Neuro consult 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 documented as of this encounter Last Filed Vital Signs Vital Sign Reading Time Taken Comments Blood Pressure 130/88 11/18/2019 10:15 AM EST Pulse 76 11/18/2019 10:15 AM EST Temperature - - Respiratory Rate 16 11/18/2019 10:15 AM EST Oxygen Saturation - - Inhaled Oxygen Concentration - - Weight 90.4 kg (199 lb 4.7 oz) 11/18/2019 10:15 AM EST Height 179.8 cm (5' 10.79") 11/18/2019 10:15 AM EST Body Mass Index 27.96 11/18/2019 10:15 AM EST documented in this encounter Patient Instructions Patient InstructionsLansing, SUZI Stahl - 11/18/2019 10:00 AM ESTInsulin long-term use Basal rate 0.9 at midnight 0.8 at 6 am 0.75 at 2 pm Insulin:carb ratio Midnight 1:10 08:00 1:8 17:00 1:7 22:00 1:10 Sensitivity:30 Trulicity 0.75 mg weekly THE 15:15 RULE: Treating Low Blood Sugars DURING THE DAY If you get a reading below 70, eat/drink something that is 15 grams of carbohydrates (ex: half a cupof juice or regular soda, 4 glucose tablets, 3 small chewable candies, glass of milk), and recheck blood sugar reading in 15 minutes. Repeat if necessary to get blood sugar above 70. AT BED TIME AND BEFORE DRIVING CHECK YOU BLOOD GLUCOSE If you get a reading below 100, eat/drink something that is 15 grams of carbohydrates (ex: half a cup of juice or regular soda, 4 glucose tablets, 3 small chewable candies, glass of milk), and recheck blood sugar reading in 15 minutes. Repeat if necessary to get blood sugar above 100. Recommend physical activity minimum 30 minutes a day, most days of the week, or as tolerated Recommend 5+ servings of vegetables a day. Limit servings or starchy carbohydrates (pasta, rice, bread, potatoes, peas, corn). Please arrive 15 mins prior to your schedule office visit. Please bring your meter to every office visit. KRYSTIN DRIVING GUIDELINES The patient must demonstrate willingness to adhere to the following recommendations: ? Keep scheduled appointments with the medical provider and diabetes team members ? Bring their blood glucose meter for download ? Bring a detailed record to include food intake, blood glucose readings, insulin taken, exercise, and other pertinent information ? Download their blood glucose meter between appointments and fax results to the educator, based onfrequency set by the diabetes team members (if home equipment is available and based on patient capabilities) ? Identify appropriate steps in hypoglycemic prevention and treatment (refer to [facility] [place] hypoglycemic guidelines) ? Consistently wear diabetes identification ? Always carry fast acting glucose and/or carbohydrate snacks ? Always check blood glucose before driving with a goal to be above 100 mg/dL ? Carry a blood glucose meter at all times, when away from home ? Stop driving if hypoglycemia is suspected and check blood glucose immediately. o Treat low blood glucose as needed Do not resume driving until measured blood glucose level is at least 100 mg/dL documented in this encounter Progress Notes Cara Cordero PA - 11/18/2019 10:00 AM EST Rupal Hou is a 44 y.o. female seen today for evaluation and management of type 2 diabetes. History taken from patient. She was last seen in our office 07/[address] Isaac. No changes in medical history since last visit. Last visit, she admitted to having some abdominal discomfort. Dr. Isaac checked LFTs and pancreatic enzymes, which were unremarkable. She states she has continued to have flatulence, heart burn, diarrhea and occasional abdominal pain. She thinks Sx started when she increased to the 1.5 mg of Trulicity. She is working evening shifts now. Her diet was not great over the holidays. Microvascular complications: no retinopathy. ? nephropathy. yes neuropathy. Macrovascular complications: h/o no LA, no CVA, no PVD HPI: Diabetes first diagnosed: 2012 Previously treated with Trulicity ($), Metformin (GI SE), glimepiride. Currently manages diabetes with: pump x 2 years and Trulicity 1.5 mg weekly Pump: MiniMed 630G Insulin:Novolog Basal Rates: 00:00: 0.850 06:00: 0.75 C:I ratio: 00:00: 10 08:00: 8 17:00: 7 22:00: 10 Sensitivity: 30 BG target: 00:00: 100-140 08:00: 90-120 22:00: 100-140 TDD insulin: 42.05 +/- 6.6 Avg daily basal: 18.41 units; 44% Avg daily bolus: 23.64 units; 56% Last a1C: 6.6 Statin: no DIABETES RELATED ROS: 1. Blood sugar checks x 4/day 2. Symptoms of hypoglycemia: none below 70 Require outside assistance: no Loss of consciousness: no Seizure: no 3. Threshold: unsure 4. Diabetic ketoacidosis: no 5. Neuropathic symptoms (paresthesiae/numbness/pain): yes- Lyrica- prescribed by PCP 6. Last eye exam: 04/2019- no 7. Macrovascular disease symptoms: angina: no intermittent claudication: no TIA: no 8. Foot Ulceration: no 9. Body Coverer: no 10. 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 - [employer] Numbers of meals per day: 3 Breakfast: bagels, now eggs and PB on toast Lunch: PB and bread Dinner: polish, sausage, chicken, potatoes, frozen corn, homemade soup, fast food Beverages: water, seltzer and coffee Snacks: chocolate, ice cream Needs for diabetes education assessed: yes PHQ-2 Score: PHQ-9 Score: HOME BLOOD GLUCOSE RECORD Fasting Blood sugar: 170-200s Pre-lunch Blood sugar: 190-200s Pre-dinner Blood sugar: 112-300s Bedtime: Blood sugar: no data Lows: no, frequency of nocturnal lows: no Pattern: majority of readings high She was identified male at and started hormonal transition in February 2008. She had left orchiectomy for precancerous lesion and pain - she was born with undecended left testicle. Still has right testis. She has completed legal name change and gender marker change. She says her hormone therapy is managed by her PCP but discussed with Dr. Isaac last visit. She recommended changing pills to patch. Patient states patch did not work (fell off and caused irritation.) She returned to pills. Has history of hyperkalemia while on ELA-inhibitors and for that reason her spironolactone dose remains very low. That medication is primarily managed by her senior construction manager at the [facility] who she sees for cardiomyopathy related to her mitochondrial disorder. Her measurer machine also monitors Questions or concerns: abdominal discomfort Past Medical History: Diagnosis Date Adjustment disorder with mixed emotional features 06/12/2018 Anxiety and depression 07/11/2018 Overview: History: On wellbutrin and zoloft Assessment: Stable mood Plan: Continue home meds Cardiomyopathy, nonischemic Chest pain 07/11/2018 Overview: History: CP, constant, some relief with NTG Assessment: Atypical. Mildly +Trop at OSH.CA anatomy known to be normal Plan: Unlikely to be from cardiac cause CHF (congestive heart failure), NYHA class II, chronic, systolic Chronic daily headache 12/20/2016 Chronic kidney disease 06/12/2018 Collapse 07/11/2018 Overview: History: Feeling of profound fatigue ??syncope vs fell asleep at her desk- awakened by boss Assessment: Brain CT shows no acute process Plan: device check Neuro consult Deafness Decreased functional residual capacity 08/01/2015 Diabetes mellitus Diabetes-deafness syndrome maternally transmitted 05/18/2017 Elevated serum creatinine 05/18/2017 Essential hypertension 06/12/2018 Hyperlipidemia LVH (left ventricular hypertrophy) 08/01/2015 Psye-nq-xczver transgender person 05/18/2017 Migraine without aura and without status migrainosus, not intractable Mitochondrial DNA mutation 12/20/2016 Overview: History: MIDD Assessment: Cardiomyopathy, non-ischemic, noted in mid 30s (2009); classified initially as dilated and then hypertrophic though cardiac MRI not typical of either Diabetes since late 30s (2010) 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 (2002); hearing aids worn Plan: Neuro consult Nonorganic sleep disorder 12/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 Polyneuropathy due to type 2 diabetes mellitus 06/12/2018 Rosacea Scrotal varices Vitamin D deficiency 06/12/2018 Past Surgical History: Procedure Laterality Date ARTHROSCOPY KNEE CARDIAC DEFIBRILLATOR PLACEMENT ORCHIECTOMY Left TONSILLECTOMY Family History Problem Relation Age of Onset Hypertension Mother Thyroid disease Mother hashimotos Obesity Mother Heart disease Mother Diabetes Father Hypertension Father Parkinsonism Father Obesity Father Heart disease Father Alcohol abuse Sister Hypertension Paternal Grandmother Diabetes Paternal Grandfather Hypertension Paternal Grandfather Cancer Maternal Grandmother No Known Problems Maternal Grandfather Hypertension Sister Kidney disease Neg Hx SOCIAL HISTORY: Works at [employer] Social History Tobacco Use Smoking status: Never Smoker Smokeless tobacco: Never Used Substance Use Topics Alcohol use: Yes Comment: rarely Drug use: No No Known Allergies Current Outpatient Medications Medication Sig Dispense Refill albuterol (VENTOLIN HFA) 108 (90 Base) MCG/ACT inhaler Inhale 2 puffs into the lungs buPROPion (WELLBUTRIN XL) 150 MG 24 hr tablet Take 150 mg by mouth [place]-DDRC-Btzhtvwn 50-300-40 MG CAPS as needed Calcium Carb-Cholecalciferol 600-800 MG-UNIT TABS Take by mouth cetirizine (ZYRTEC ALLERGY) 10 MG tablet Take 10 mg by mouth daily Cholecalciferol (RA VITAMIN D-3) 2000 units CAPS Take 2,000 Units by mouth daily CONTOUR NEXT TEST test strip Test Four Times a Day 400 each 1 dulaglutide (TRULICITY) 1.5 MG/0.5ML injection pen 1.5 mg/0.5 mL Inject 0.5 mLs into the skinonce a week Start after 4 weeks of 0.75 mg weekly is completed 12 pen 1 estradiol (ESTRACE) 1 MG tablet Take 2 mg by mouth daily 3 HumaLOG 100 UNIT/ML Subcutaneous Solution Continual infusion via insulin pump. Max Daily Dose inclusive of priming and titration: 65 units. Dx code: E10.65 60 mL 1 ibuprofen (ADVIL,MOTRIN) 400 MG tablet Take 400 mg by mouth every 6 (six ) hours as needed for Pain Insulin Infusion Pump (MINIMPayOrPass 630G INSULIN PUMP) KIT by Does not apply route levOCARNitine (CARNITOR) 330 MG tablet Take 660 mg by mouth Two Times Daily loperamide (IMODIUM) 2 MG capsule Take 2 mg by mouth Four times daily as needed for Diarrhea losartan (COZAAR) 50 MG tablet Take 1 tablet by mouth daily 30 tablet 11 MAGNESIUM OXIDE -MG SUPPLEMENT PO Take 400 mg by mouth Two Times Daily metoprolol (TOPROL-XL) 100 MG 24 hr tablet Take 50 mg by mouth daily pregabalin (LYRICA) 50 MG capsule Take 50 mg by mouth Two Times Daily rizatriptan (MAXALT) 10 MG tablet Take 10 mg by mouth as needed for MigraineMay repeat in 2 hours if needed sertraline (ZOLOFT) 100 MG tablet Take 100 mg by mouth daily spironolactone (ALDACTONE) 25 MG tablet Take 25 mg by mouth 5 (five) times a week No current facility-administered medications for this visit. ROS: The full 10-point review of systems is otherwise negative except as noted in HPI. PHYSICAL EXAM: Vitals: 11/18/19 1015 BP: 130/88 BP Location: Right arm Patient Position: Sitting Cuff size: Regular Pulse: 76 Resp: 16 Weight: 90.4 kg (199 lb 4.7 oz) Height: 1.798 m (5' 10.79") Body mass index is 27.96 kg/m. Wt Readings from Last 3 Encounters: 11/18/19 90.4 kg (199 lb 4.7 oz) 07/09/19 87.9 kg (193 lb 12.6 oz) 07/01/19 89.1 kg (196 lb 6.4 oz) BP Readings from Last 3 Encounters: 11/18/19 130/88 07/09/19 106/64 07/01/19 131/82 GENERAL: Awake, alert and in no acute distress EYES: conjunctivae are pink and moist, anicteric ENT/MOUTH: dentition: ok, tongue normal NECK: No adenopathy. THYROID: thyroid is normal, no nodules, non-tender CARDIOVASCULAR: regular rate and rhythm, no murmur, peripheral pulses +2 RESPIRATORY: Clear to auscultation bilaterally. No wheezing, rales or rhonchi GASTROINTESTINAL: soft, non-tender, non-distended, normal bowel sounds MUSCULOSKELETAL: normal muscle mass, normal gait SKIN: no breakdown, Calluses bilaterally, nails ok, injection sites no lipohypertrophy NEUROLOGIC: sensation to a 10 gm monofilament Mildly decreased at feet. PSYCHIATRIC: mood and affect are normal. LABS: results reviewed in [facility], discussed with the pt. Lab Results Component Value Date HGBA1C 8.0 (A) 04/08/2019 HGBA1C 8.6 (H) 03/18/2019 HGBA1C 9.6 (H) 11/07/2018 Lab Results Component Value Date POCGLU 182 (H) 07/09/2019 Lab Results Component Value Date CHO 167 07/09/2019 TRIG 348 (H) 07/09/2019 HDL 31 (L) 07/09/2019 LDL 66 07/09/2019 VLDL 70 (H) 07/09/2019 No results found for: LDLDIRECT Lab Results Component Value Date CREATININE 1.24 (H) 07/01/2019 BUN 21 (H) 07/01/2019 NA 142 07/01/2019 K 4.6 07/01/2019 CL 100 07/01/2019 No components found for: EGFR No results found for: MICROALBCR Lab Results Component Value Date AST 25 07/09/2019 Lab Results Component Value Date ALT 33 (H) 07/09/2019 No results found for: TSH, [id number], F2NIXZI, THYROIDAB No results found for: FREET4 Lab Results Component Value Date CALCIUM 9.7 07/01/2019 PHOS 2.1 (L) 07/01/2019 Assessment/Plan: 1. Diabetes Mellitus Type 2: A1C 7.9, Prior A1c 6.6, Goal ~ 7 with no lows. I recommend Adjusting basal rates and decreasing Trulicity -She has continued to have abdominal discomfort. Pancreatic enzymes normal per last labs, but sx have worsened. Will recheck labs. Will decrease Trulicity to 0.75 mg weekly. She does not think she had SE when on this dose -BG have been running high. Will adjust basal rates -Continue to work on diet and accurately carb counting. -Check BG 4 times daily and send logs in for review if BG below 70 or above 250 frequently. -We reviewed the 15:15 rule for treating hypoglycemia -Labs -Advised she see immunopathologist. She will find one closer to home. Monitor feet daily. 2. Blood Pressure: Within guidelines today at 130/88. She is currently on medications for this. We will continue to monitor. -On ARB 3. Lipids: She is not currently on medications for this. We will continue to monitor. -LDL at goal without statin. -TG high. We discussed dietary changes 4. Transgender Women: Managed by PCP currently. 5. Hyperkalemia: resolved per last labs. Managed by Nephrology 6. Vitamin D Deficiency: Taking 2000 IU daily. Labs ordered to recheck The patient has been instructed to check their blood glucose level 4 times per day including fasting, premeal, and bedtime, but up to 6 times per day for sickday management, when symptomatic, or is correcting a low blood sugar. Should she note readings below 70 or above 250 on a regular basis, she is to contact the office for further medication adjustment. She is aware of the 15:15 rule to treat hypoglycemic episodes and proper diabetic footcare. Recommend yearly dilated eye exam and immunization (Flu vaccination/Pneumonia vaccination, Vaccine for Shingles and Hepatitis B vaccination). RTC 3 months Diabetes Self-Management Education/Training (DSME/T) Per [facility] policy AMB J-19, the Krystin RN tower loader operator CDE may provide my patient with insulin adjustmentsand all diabetes management guidelines per approved policies AMB J-01 through AMB J-18. My patient may receive diabetes self- management education for any nursing, nutrition, or physical therapy needs which arise and require the expertise of a Krystin educator. Insulin long-term use Basal rate 0.9 at midnight 0.8 at 6 am 0.75 at 2 pm Insulin:carb ratio Midnight 1:10 08:00 1:8 17:00 1:7 22:00 1:10 Sensitivity:30 Trulicity 0.75 mg weekly Orders Placed This Encounter Celiac reflex panel TSH Lydia D 25 Hydroxy Total Lipase Level Amylase Level Insulin Aspart 100 UNIT/ML Subcutaneous Solution (NOVOLOG) Dulaglutide 0.75 MG/0.5ML Subcutaneous Solution Pen-injector (TRULICITY) Thank you for allowing us to participate in the care of your patient. Please call us with further questions. documented in this encounter Plan of Treatment Date Type Specialty Care Team Description 01/13/2020 Office Visit Nephrology 02/18/2020 Office Visit Endocrinology Zaria Isaac MD [address] [place] [address] 05/25/2020 Office Visit Endocrinology Cara Cordero PA [address] [place] [address] Name Type Priority Associated Diagnoses Order Schedule POCT Hemoglobin A1C, Point of Care Routine Type 2 diabetes 4 Occurrences Docked Testing-Docked mellitus with starting 11/18/2019 Device hyperglycemia, with until 11/17/2020 long-term current use of insulin POCT glucose, docked Point of Care Routine Type 2 diabetes 12 Occurrences Testing-Docked mellitus with starting 11/18/2019 Device hyperglycemia, with until 11/17/2020 long-term current use of insulin Celiac reflex panel Lab Routine Type 2 diabetes 1 Occurrences mellitus with starting 11/18/2019 hyperglycemia, with until 05/18/2020 long-term current use of insulin TSH Lab Routine Type 2 diabetes 1 Occurrences mellitus with starting 11/18/2019 hyperglycemia, with until 05/18/2020 long-term current use of insulin Lydia D 25 Hydroxy Lab Routine Type 2 diabetes 1 Occurrences Total mellitus with starting 11/18/2019 hyperglycemia, with until 05/18/2020 long-term current use of insulin Vitamin D deficiency Lipase Level Lab Routine Type 2 diabetes 1 Occurrences mellitus with starting 11/18/2019 hyperglycemia, with until 05/18/2020 long-term current use of insulin Amylase Level Lab Routine Type 2 diabetes 1 Occurrences mellitus with starting 11/18/2019 hyperglycemia, with until 05/18/2020 long-term current use of insulin Health Maintenance Due Date Last Done Comments MMR Vaccines (1 of 1 - 1976 Standard series) Varicella Vaccines (1 of 2 1976 - 2-dose childhood series) Pneumococcal Vaccine: 1981 Pediatrics (0 to 5 Years) and At-Risk Patients (6 to 64 Years) (1 of 1 - PPSV23) DTaP,Tdap,and Td Vaccines 1982 (1 - Tdap) HIV Screening 1988 Diabetic Foot Exam 1993 Dilated Retinal Exam 1993 Urine Microalbumin 1993 Hepatitis B Vaccines (1 of 1994 3 - Risk 3-dose series) Cervical Cancer Screening 5 1996 years Influenza Vaccine 08/05/2019 Hemoglobin A1c 10/08/2019 04/08/2019, 03/18/2019, 11/07/2018, Additional history exists Lipid Disorder Screening 07/09/2020 07/09/2019, 07/02/2018 Pneumococcal Vaccine: 65+ 2040 Years (1 of 2 - PCV13) HIB Vaccines Aged Out No longer eligible based on patient's age to complete this topic Hepatitis A Vaccines Aged Out No longer eligible based on patient's age to complete this topic IPV Vaccines Aged Out No longer eligible based on patient's age to complete this topic documented as of this encounter Procedures Procedure Name Priority Date/Time Associated Comments Diagnosis POCT GLUCOSE, DOCKED Routine 11/18/2019 10:05 AM Results for this EST procedure are in the results section. POCT HEMOGLOBIN A1C, Routine 11/18/2019 9:56 AM Results for this DOCKED EST procedure are in the results section. documented in this encounter Results POCT glucose, docked (11/18/2019 10:05 AM EST) POC Glucose 260 (H) 70 - 140 mg/dL KRYSTIN POC Specimen Whole Blood Performing Organization Address [facility] Phone Number POINT OF CARE TEST [address] [place] [id number] [facility]ST[facility] POC [facility] [place] [address] POCT Hemoglobin A1C, Docked (11/18/2019 9:56 AM EST) Hemoglobin A1C 7.9 (H) 4.0 - 6.0 % KRYSTIN POC Estimated Avg Glucose 180 (H) <126 mg/dL KRYSTIN POC Specimen Whole Blood Performing Organization Address City/[facility] Phone Number POINT OF CARE TEST [address] [place] [address] [facility] POC [address] [place] [address] documented in this encounter Visit Diagnoses Diagnosis Type 2 diabetes mellitus with hyperglycemia, with long-term current use of insulin - Primary Vitamin D deficiency Unspecified vitamin D deficiency Insulin long-term use Encounter for long-term (current) use of insulin Essential hypertension Unspecified essential hypertension documented in this encounter
--- NOTE | 2019-12-03 20:30 | ED ---
Abdominal Pain/Female - HPI Summary HPI Summary: Patient is a 44 y/o F presenting to the ED for a chief complaint of RLQ abdominal pain that began on 12/02/19. On triage, she rates the pain as 8/10 in severity. Patient reports decreased appetite, nausea, and constipation since . Nasal congestion, sneezing, and sore throat are reported, but she believes these symptoms are unrelated to her chief complaint of abdominal pain. Patient notes fever that has since resolved and bilateral LE edema in the past, but denies having any edema in the last few weeks. Patient denies shortness of breath, chest pain, cough, hematuria, rash, or diarrhea. No aggravating or alleviating factors are noted. She last ate snack mix around 18:30 to 19:00 on 12/02/19. PSHx of appendectomy is denied. Allergy to contrast is denied. Patient is [id number] transgender. - History of Current Complaint Chief Complaint: EDAbdPain Stated Complaint: LOWER ABD PAIN/FEVER PER PT Hx Obtained From: Patient Hx Last Menstrual Period: None--not applicable. Onset/Duration: Sudden Onset, Still Present Timing: Constant Severity Initially: Severe Severity Currently: Severe Pain Intensity: 8 Pain Scale Used: 0-10 Numeric Location: Discrete At: RLQ Radiates: No Aggravating Factor(s): Nothing Alleviating Factor(s): Nothing Associated Signs and Symptoms: Positive: Fever - Resolved, Constipation, Decreased Appetite, Nausea. Negative: Cough, Chest Pain, Diarrhea Allergies/Adverse Reactions: Allergies Allergy/AdvReac Type Severity Reaction Status Date / Time No Known Allergies Allergy Verified 12/03/19 17:47 Home Medications: Home Medications Dulaglutide (NF) [Trulicity (NF)] 1.5 mg SUBCUT WEEKLY 12/03/19 [History Confirmed 12/03/19] Rizatriptan ODT (NF) [Maxalt-METAL PAINTER (NF)] 10 mg PO DAILY PRN MDD 30 mg 12/03/19 [ History Confirmed 12/03/19] estradioL [Estradiol] 2 mg PO DAILY 12/03/19 [History Confirmed 12/03/19] PMH/Surg Hx/FS Hx/Imm Hx Previously Healthy: Yes Endocrine/Hematology History: Reports: Hx Diabetes - iddm Denies: Hx Anticoagulant Therapy, Hx Thyroid Disease Cardiovascular History: Reports: Hx Angina, Hx Cardiomegaly, Hx Congestive Heart Failure, Hx Hypertension - WELL CONTROLLED, Hx Pacemaker/ICD - 5/17, Hx Valvular Heart Disease - MITRAL REGURG, Other Cardiovascular Problems/Disorders - Hypertrophic CARDIOMYOPATHY Denies: Hx Deep Vein Thrombosis, Hx Myocardial Infarction Respiratory History: Denies: Hx Asthma, Hx Chronic Obstructive Pulmonary Disease (COPD), Hx Lung Cancer, Hx Pneumonia, Hx Pulmonary Embolism GI History: Denies: Hx Gall Bladder Disease, Hx Gastrointestinal Bleed, Hx Ulcer, Hx Urosepsis History: Reports: Hx Chronic Renal Failure, Hx Renal Disease - She states that she was told that she had "kidney failure" Denies: Hx Dialysis, Hx Kidney Stones Musculoskeletal History: Denies: Hx Scoliosis Sensory History: Reports: Hx Contacts or Glasses, Hx Hearing Aid, Hx Hearing Problem Denies: Hx Legally Blind, Hx Deafness Opthamlomology History: Reports: Hx Contacts or Glasses Denies: Hx Legally Blind EENT History: Denies: Hx Deafness Neurological History: Denies: Hx Dementia, Hx Headaches, Hx Migraine, Hx Seizures, Hx Transient Ischemic Attacks (TIA), Other Neuro Impairments/Disorders Psychiatric History: Reports: Hx Depression Denies: Hx Anxiety, Hx Panic Disorder, Hx Schizophrenia, Hx Bipolar Disorder - Surgical History Surgical History: Yes Surgery Procedure, Year, and Place: L knee arthroscopy. tonsillectomy. 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 Hx Anesthesia Reactions: No - Immunization History Date of Tetanus Vaccine: 2011 Date of Influenza Vaccine: fall 2012 Infectious Disease History: No Infectious Disease History: Denies: Hx Clostridium Difficile, Hx Hepatitis, Hx Human Immunodeficiency Virus (HIV), Hx of Known/Suspected MRSA, Hx Shingles, Hx Tuberculosis, Hx Known/ Suspected VRE, Hx Known/Suspected VRSA, History Other Infectious Disease, Traveled Outside the [place] in Last 30 Days - Family History Known Family History: Positive: Cardiac Disease - father and grandfather - [place]. mother - CHF, Hypertension, Diabetes, Other - Brain cancer, Parkinson's - Social History Occupation: Employed Part-time Alcohol Use: Rare Hx Substance Use: No Substance Use Type: Reports: None Hx Tobacco Use: No Smoking Status (MU): Never Smoked Tobacco Review of Systems Positive: Fever - Resolved, Other - Positive decreased appetite Positive: Sore Throat, Other - Positive nasal congestion and sneezing Negative: Chest Pain Negative: Shortness Of Breath, Cough Positive: Abdominal Pain - RLQ, Nausea, Other - Positive constipation. Negative : Diarrhea Negative: hematuria Negative: Rash All Other Systems Reviewed And Are Negative: Yes Physical Exam - Summary Physical Exam Summary: Constitutional: Well-developed, Well-nourished, Alert. (-) Distressed Skin: Warm, Dry HENT: Normocephalic; Atraumatic Eyes: Conjunctiva normal Neck: Musculoskeletal ROM normal neck. (-) JVD, (-) Stridor, (-) Tracheal deviation Cardio: Rhythm regular, rate normal, Heart sounds normal; Intact distal pulses; The pedal pulses are 2+ and symmetric. Radial pulses are 2+ and symmetric. (-) Murmur Pulmonary/Chest wall: Effort normal. (-) Respiratory distress, (-) Wheezes, (-) Rales Abd: Soft, (-) Distension, (+) Guarding, (-) Rebound, RLQ tenderness, (+) Rovsing sign. Musculoskeletal: (-) Edema Lymph: (-) Cervical adenopathy Neuro: Alert, Oriented x3 Psych: Mood and affect Normal Triage Information Reviewed: Yes Vital Signs On Initial Exam: Initial Vitals Temp Pulse Resp BP Pulse Ox 98.9 F 78 18 107/44 99 12/03/19 17:44 12/03/19 17:44 12/03/19 17:44 12/03/19 17:44 12/03/19 17:44 Vital Signs Reviewed: Yes Procedures - Sedation Patient Received Moderate/Deep Sedation with Procedure: No Diagnostics - Vital Signs Vital Signs Temp Pulse Resp BP Pulse Ox 12/03/19 19:40 98.7 F 80 17 95/69 98 12/03/19 17:44 98.9 F 78 18 107/44 99 - Laboratory Result Diagrams: 12/03/19 20:45 12/03/19 20:45 Lab Statement: Any lab studies that have been ordered have been reviewed, and results considered in the medical decision making process. - CT Abdomen/Pelvis CT CT Interpretation Completed By: Radiologist Summary of CT Findings: Abdomen/Pelvis CT IMPRESSION: The appendix is abnormally dilated measuring up to 9 mm diameter and fluid filled with wall thickening and wall enhancement with periappendiceal fat stranding suspicious for acute appendicitis without signs of perforation. Reviewed by Dr. Cash Salgado. - EKG 21:19 Cardiac Rate: NL - 69 BPM EKG Rhythm: Sinus Rhythm ST Segment: Normal Ectopy: None Summary of EKG Findings: EKG at 21:19 shows paced rhythm at 69 bpm, normal WA, prolonged QRS, normal QTc, left axis, normal ST, normal T-waves, normal EKG. Reviewed and interpreted by Dr. Sabillon. Re-Evaluation - Re-Evaluation First Eval Re-Evaluation Time: 22:33 Change: Unchanged Comment: At 22:33, I updated the patient regarding imaging results. Will start on Zosyn and morphine. She states she has DM and uses an insulin pump. Abdominal Pain Fem Course/Dx - Course Course Of Treatment: Patient is a 44 y/o F presenting to the ED for a chief complaint of RLQ abdominal pain that began on 12/02/19. On triage, she rates the pain as 8/10 in severity. Patient reports decreased appetite, nausea, and constipation since 11/30/19. Nasal congestion, sneezing, and sore throat are reported, but she believes these symptoms are unrelated to her chief complaint of abdominal pain. Patient notes fever that has since resolved and bilateral LE edema in the past, but denies having any edema in the last few weeks. Patient denies shortness of breath, chest pain, cough, hematuria, rash, or diarrhea. PSHx of appendectomy is denied. Allergy to contrast is denied. Patient is male- to-female transgender. On exam, RLQ tenderness, positive guarding, positive Rovsing sign. In the ED course, patient was given visipaque 100 ml IV, morphine 4 mg IV, and piperacillin 3.375 gm IVPB. Laboratory abnormal findings : WBC 12.7, RBC 5.04, absolute neuts 10.3, absolute monos 0.9, sodium 133, chloride 98, BUN 27, creatinine 1.5, glucose 196, AST 12, CRP 150.2. EKG at 21: 19 shows paced rhythm at 69 bpm, normal WA, prolonged QRS, normal QTc, left axis , normal ST, normal T-waves, normal EKG. Abdomen/Pelvis CT IMPRESSION: The appendix is abnormally dilated measuring up to 9 mm diameter and fluid filled with wall thickening and wall enhancement with periappendiceal fat stranding suspicious for acute appendicitis without signs of perforation. At 22:33, I updated the patient regarding imaging results. Will start on Zosyn and morphine. She states she has DM and uses an insulin pump. At 22:38, I discussed the patients case with Dr. Phipps who will call Dr. Stack. At 22 :45, Dr. Phipps agrees to admit the patient to [facility] with a diagnosis of appendicitis. Patient will be admitted to [facility] with a diagnosis of appendicitis. - Diagnoses Provider Diagnoses: Appendicitis - Provider Notifications Discussed Care Of Patient With: Milton Phipps - At 22:38, I discussed the patients case with Dr. Phipps who will call Dr. Stack. At 22:45, Dr. Phipps agrees to admit the patient to [facility] with a diagnosis of appendicitis. Time Discussed With Above Provider: 22:38 Instructed by Provider To: Admit As Inpatient Discharge ED - Sign-Out/Discharge Documenting (check all that apply): Patient Departure - Admit - Discharge Plan Condition: Stable Disposition: ADMITTED TO [facility] - Billing Disposition and Condition Condition: STABLE Disposition: Admitted to [facility] - Attestation Statements Document Initiated by Scribe: Yes Documenting Scribe: Malena Thompson Provider For Whom Scribe is Documenting (Include Credential): Ana Salgado MD Scribe Attestation: I, Malena Thompson, scribed for Ana Sabillon MD on 12/04/19 at 0328. Scribe Documentation Reviewed: Yes Provider Attestation: The documentation as recorded by the Malena givens accurately reflects the service I personally performed and the decisions made by me, Ana Sabillon MD Status of Scribe Document: Viewed
[2019-12-03 20:52] LABS: ABS Basophils 0.1 10^3/ul (0-0.2); ABS Lymphocytes 1.4 10^3/ul (1.0-4.8); ABS Monocytes 0.9 10^3/ul (0-0.8); ABS Neutrophils 10.3 10^3/ul (1.5-7.7); Eosinophil % 0.4 %; Hematocrit 45 % (35-47); Hemoglobin 15.4 g/dL (12.0-16.0); Lymphocyte % 11.2 %; Mean Corpuscular HGB Conc 34 g/dL (31-36); Mean Corpuscular Hemoglobin 31 pg (27-31); Mean Corpuscular Volume 89 fL (80-97); Mean Platelet Volume 9.8 fL (7.4-10.4); Platelet Count 233 10^3/uL (150-450); Red Blood Count 5.04 10^6 /uL (3.70-4.87); Red Cell Distribution Width 13 % (10-15); White Blood Count 12.7 10^3/uL (3.5-10.8)
[2019-12-03 21:11] LABS: Albumin 3.8 g/dL (3.2-5.2); Albumin/Globulin Ratio 1.2 (1-3); C Reactive Protein 150.2 mg/L (<8.01); Calcium 9.2 mg/dL (8.6-10.3); EGFR African American 45.6 (>60); EGFR Non-African American 37.7 (>60); Globulin 3.3 g/dL (2-4); Potassium 4.5 mmol/L (3.5-5.0); Total Bilirubin 0.7 mg/dL (0.2-1.0); Total Protein 7.1 g/dL (6.4-8.9)
[2019-12-03] MEDS ORDERED: Iodixanol* (CONTRAST) 320 MG/ML 100 ML SDV IV ONE (21:18)
[2019-12-03] MEDS ORDERED: Morphine 4 MG/ML VIAL (1 ml) 4 MG/ML VIAL IV ONE (22:32)
[2019-12-03] MEDS ORDERED: Piperacillin/Tazobac ADVAN(*) 3.375 GM in NS 0.9% 100 ML* 100 ML IVPB ONE (22:33)
[2019-12-03] MEDS ORDERED: Ondansetron INJ* 2 MG/ML VIAL IV PRN (22:44)
[2019-12-03] MEDS ORDERED: Piperacillin/Tazobactam VIAL*) 3.375 GM in NS 0.9% 100 ML* 100 ML IVPB SCH (23:00)
[2019-12-03 23:28] LABS: Urine Appearance Cloudy; Urine Bilirubin Negative (Negative); Urine Blood Negative (Negative); Urine Color Amber; Urine Glucose Negative (Negative); Urine Ketones Negative (Negative); Urine Nitrite Negative (Negative); Urine Protein Negative (Negative); Urine Specific Gravity 1.023 (1.010-1.030); Urine Urobilinogen Negative (Negative)
[2019-12-03] MEDS ORDERED: Zosyn per Pharmacy* NOTE FOLLOW UP PRN (23:38)
[2019-12-04] MEDS: NS 0.9% 1000 ML** 1,000 ML IV SCH ×2 (00:08→21:42)
[2019-12-04] MEDS: Piperacillin/Tazobactam VIAL*) 3.375 GM in NS 0.9% 100 ML* 100 ML IVPB SCH ×3 (02:38→19:20)
[2019-12-04] MEDS: HYDROmorphone INJ* 0.5 MG/0.5 ML SYRINGE IV SLOW PU PRN ×9 (02:41→23:23)
[2019-12-04] MEDS ORDERED: Dextrose 50% Syringe 50 ML* 25 GM/50 ML SYRINGE IV PUSH PRN ×2 (06:06→12:09)
[2019-12-04] MEDS ORDERED: Insulin LISPRO* 1 UNITS UNIT SUBCUT SCH ×2 (07:00→07:30)
[2019-12-04 07:14] LABS: INR 1.09 (0.82-1.09)
--- NOTE | 2019-12-04 07:44 | PN ---
Progress Note - Progress Note Date of Service: 12/04/19 Note: Patient seen and examined CT reviewed Care discussed with Dr. Stack PMX of cardiomyopathy-has ICD in place She gives history of chest pressure intermittently over the last few months Temp Pulse Resp BP Pulse Ox 98.4 F 68 20 104/62 97 12/04/19 03:46 12/04/19 03:46 12/04/19 07:31 12/04/19 07:28 12/04/19 03:46 PEX: Comfortable ABD is soft and ND, NABS; tenderness RLQ with some mild guarding, no peritoneal irritation, no generalized peritonitis. Labs noted IMP: Acute appendicitis Multiple medical issues Dr. Stack feels cardiac evaluation indicated-for stress test this AM This appendicitis can most likely be successfully treated with IV and oral antibiotics this admission with avoidance of surgery. No sepsis or peritonitis. Will await medical and cardiac opinion All discussed with patient at bedside
--- NOTE | 2019-12-04 08:10 | CONS ---
CC: Dr. Pinto; SUZI Fernandez * CONSULTATION REPORT: DATE OF CONSULT: 12/04/19 PRIMARY CARE PROVIDER: SUZI Fernandez ALUMINUM POOL INSTALLER: Dr. Pinto. CHIEF COMPLAINT: Abdominal pain. REASON FOR CONSULTATION: Medical preoperative evaluation. HISTORY OF PRESENT ILLNESS: Ms. Hou is a 44-year-old biologic male, who identifies as a female, who initially presented to the emergency room with complaints of right lower quadrant abdominal pain. She tells me that on Sunday11/30/19 she had nausea and diffuse abdominal cramping. This persisted, and by Sunday12/02/19, she developed sharp right lower quadrant abdominal pain. She therefore presented to the emergency room. Additionally, she does state that she has had a fever as high as 100.5 at home with associated chills. In the ER , she was found to have an abnormally dilated appendix measuring up to 9 mm in diameter and fluid filled with wall thickening and wall enhancement with periappendiceal fat stranding suspicious for acute appendicitis without signs of perforation. Given the patient's medical history of mitochondrial myopathy and type 2 diabetes, hospitalists consult was requested. The patient states that generally prior to the pain beginning she was feeling okay. She does note that she has had intermittent episodes of chest pressure. She has not had any in the last 24 hours. She does tell me that she had chest discomfort on 12/01/19. Additionally, she tells me that she has had decreased exercise tolerance, especially noted at work. 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 Of note, the patient did have a hospitalization in April of 2019, where she presented with chest pain. She tells me the chest pressure that she has been having recently is much more mild than it was in April. In April, she underwent transthoracic echocardiogram which revealed an EF of 30% to 35% with moderate diffuse hypokinesis of the LV, the right ventricle systolic function is low normal. Her echo had very little change compared to one done on 05/09/18. PAST MEDICAL HISTORY: 1. 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 3. Type 2 diabetes. 4. Stage 3 chronic kidney disease. 5. Hypertension. 6. Migraines. PAST SURGICAL HISTORY: 1. Tonsillectomy. 2. Orchiopexy for left undescended testicle followed by left orchiectomy. 3. Left knee arthroscopy x2. 4. AICD insertion. MEDICATIONS: 1. Sertraline 150 mg p.o. daily. 2. Wellbutrin 100 mg p.o. daily. 3. Lyrica 50 mg p.o. b.i.d. 4. Metoprolol ER 50 mg p.o. daily. 5. Losartan 50 mg p.o. daily. 6. Estradiol 2 mg p.o. daily. 7. Spironolactone 25 mg on Sunday, Sunday, Sunday, , Sunday. 8. Magnesium oxide 400 mg p.o. b.i.d. 9. Vitamin D3 2000 units p.o. daily. 10. Maxalt p.r.n. 11. Zofran p.r.n. ALLERGIES: No known drug allergies. FAMILY HISTORY: Dad at the age of 61. He had an VT at the age of 47. He also had a history of Parkinson's, hypertension, diabetes, and a brain tumor. Mom is living, she is 75, she has hypertension, celiac disease, and mitochondrial myopathy. SOCIAL HISTORY: The patient is a nonsmoker. She drinks alcohol very rarely. She works at [employer]. Her surrogate decision maker is Colette Weeks. REVIEW OF SYSTEMS: A complete 11-system review of systems is obtained. Pertinent positives and negatives are as per HPI and otherwise negative. PHYSICAL EXAM: Blood pressure 95/55, pulse 68, respirations 16, temp 98.4, O2 sat 97% on room air. General: The patient is well developed and sitting up in bed, in no acute distress. HEENT: Pupils are equal. Extraocular muscles are intact. Oropharynx is clear and moist. Cardiac: Normal S1, S2. Regular rate and rhythm. I do not appreciate any murmurs. There is no lower extremity edema. Pulmonary: Lungs are clear to auscultation bilaterally. Abdomen: Bowel sounds are present. Abdomen is soft. She has mild tenderness in the left upper quadrant, moderate tenderness in the right upper quadrant, and severe pain to palpation in the right lower quadrant. Musculoskeletal: There is no cyanosis or clubbing of the digits. There is full active range of motion of all 4 extremities. Skin: Visible areas of skin are warm, dry, and without rash. Neuro: Cranial nerves II through XII are grossly intact. Sensation is intact to light touch throughout. Strength is 5/5 and symmetric in both upper and lower extremities bilaterally. Psych: The patient is alert. She is oriented x3. Affect appears appropriate. DIAGNOSTIC STUDIES/LAB DATA: WBC 12.7, hemoglobin 15.4, hematocrit 45, platelets 233. Sodium 133, potassium 4.5, chloride 98, CO2 of 26, BUN 27, creatinine 1.50, glucose 196, lactic acid 2.0, calcium 9.2. Bilirubin 0.7, AST 12, ALT 17, alk phos 53. CRP 150.2. Albumin 3.8. Lipase 37. Urinalysis reveals cloudy urine with a specific gravity of 1.023, but negative for signs of infection. CT abdomen and pelvis: The appendix is abnormally dilated measuring up to 9 mm in diameter and fluid filled with wall thickening and wall enhancement with periappendiceal fat stranding suspicious for acute appendicitis without signs of perforation. EKG reveals a paced rhythm. ASSESSMENT AND PLAN: Ms. Hou is a 44-year-old male to female transsexual, who has mitochondrial myopathy with chronic systolic dysfunction, type 2 diabetes, and hypertension who presents to the emergency room with complaints of abdominal pain and is found to have acute appendicitis. 1. Acute appendicitis. At this point, the patient has been admitted to the hospital by Dr. Phipps. She continues on Zosyn for antibiotic therapy. Her pain is much improved compared to when she presented to the ER though is still present. The patient would benefit from going to the OR; however, given the history of intermittent chest pressure over the last couple of months as well as decreased exercise tolerance, I do feel that the patient needs to be better optimized and worked up prior to going to the OR. At this point, the patient has been ordered a chemical nuclear stress test. While she did have one in April , she should have this repeated now. I am going to hold off on repeating her echocardiogram at this point as she appears to be euvolemic. 2. Type 2 diabetes. The patient is on Humalog insulin pump. Her settings are as follows: From midnight to 6 a.m., she receives 0.9 units per hour; from 6 a.m. to 2 p.m., she receives 0.8 units per hour; and from 2 p.m. until midnight , she receives 0.75 units per hour. Additionally, she will bolus herself based on carb intake and the result of her fingerstick. For now, we will continue her insulin pump at her basal rate. We will check fingersticks every 6 hours as she is currently n.p.o. and we will provide lispro sliding scale coverage while she is n.p.o. Her last hemoglobin A1c was 8.0 in April 2019. I will add this on to this morning's labs. 3. Hypertension. Blood pressure is low normal at this time. She is asymptomatic. She will continue on her metoprolol ER and losartan at her home doses. 4. Depression. Continue sertraline and Wellbutrin. 5. Mitochondrial myopathy with chronic systolic dysfunction. Continue spironolactone 25 mg 5 days weekly. 6. DVT prophylaxis. Ambulation. 7. Code status is full. TIME SPENT: Fifty five minutes was spent on the consultation of this patient. [id number]/[facility] #: [id number] MARGA
[2019-12-04] MEDS ORDERED: Aminophylline IV* 25 MG/ML 10 ML VIAL ONE (08:24)
[2019-12-04] MEDS ORDERED: Regadenoson* 0.4 MG/5 ML SYRINGE ONE ×2 (08:24→09:50)
[2019-12-04] MEDS ORDERED: Estradiol TAB(NF) 1 MG TAB PO SCH (09:00)
[2019-12-04] MEDS: Pregabalin 50 mg CAP (*) PO SCH ×2 (10:55→21:49)
[2019-12-04] MEDS: Losartan TAB* 25 MG PO SCH (11:07)
[2019-12-04] MEDS: Metoprolol Succinate XL TAB* 50 MG PO SCH (11:07)
[2019-12-04] MEDS: Sertraline* 100 MG TAB PO SCH (11:08)
[2019-12-04] MEDS: BuPROPion XL* 150 MG TAB.XL PO SCH (11:08)
[2019-12-04] MEDS: Spironolactone TAB* 25 MG PO SCH (11:16)
[2019-12-04] MEDS: Insulin LISPRO* 1 UNITS UNIT SUBCUT SCH ×6 (12:32→21:55)
--- NOTE | 2019-12-04 13:36 | PN ---
Subjective Date of Service: 12/04/19 Interval History: Rupal had intermittent chest pressure in the past few days, but no pain when I saw her. She requested fluid diet, which I deferred to surgeons' discretion. She is on insulin pump for her diabetes but now is running out of insulin so we have to do sc injection. Her abdominal pain is not worsening, afebrile overnight. She had stress test this morning showing decreased ejection fraction with apical thinning, no reversible perfusion defect. Objective Active Medications: Bupropion HCl (Wellbutrin Xl *) 150 mg PO DAILY [facility] Last Admin: 12/04/19 11:08 Dose: 150 mg Dextrose (D50w Syringe 50 Ml*) 12.5 gm IV PUSH .FOR FS < 60 - SS PRN PRN Reason: FS < 60 Estradiol (Estradiol Tab(Nf)) 2 mg PO DAILY [facility]; Protocol Last Admin: 12/04/19 11:08 Dose: Not Given Hydromorphone HCl (Dilaudid Inj*) 0.5 mg IV SLOW PU Q1H PRN PRN Reason: PAIN - SEVERE Last Admin: 12/04/19 10:54 Dose: 0.5 mg Sodium Chloride (Ns 0.9% 1000 Ml) 1,000 mls @ 50 mls/hr IV PER RATE [facility] Last Admin: 12/04/19 00:08 Dose: 50 mls/hr Piperacillin Sod/Tazobactam (Sod 3.375 gm/ Sodium Chloride) 100 mls @ 25 mls/ hr IVPB Q8H [facility] Last Admin: 12/04/19 11:09 Dose: 25 mls/hr Insulin Human Lispro (Humalog*) 3 units SUBCUT Q4H [facility] Last Admin: 12/04/19 12:32 Dose: 3 units Insulin Human Lispro (Humalog*) 0 units SUBCUT Q4H [facility]; Protocol Losartan Potassium (Cozaar Tab*) 50 mg PO DAILY [facility] Last Admin: 12/04/19 11:07 Dose: 50 mg Metoprolol Succinate (Toprol Xl Tab*) 50 mg PO DAILY [facility] Last Admin: 12/04/19 11:07 Dose: 50 mg Ondansetron HCl (Zofran Inj*) 4 mg IV Q4H PRN PRN Reason: NAUSEA/VOMITING Pharmacy Consult (Zosyn Per Pharmacy*) 1 note FOLLOW UP . PRN PRN Reason: PER PROTOCOL Pregabalin (Lyrica 50 Mg Cap (*)) 50 mg PO BID [facility] Last Admin: 12/04/19 10:55 Dose: Not Given Sertraline HCl (Zoloft*) 100 mg PO DAILY [facility] Last Admin: 12/04/19 11:08 Dose: 100 mg Spironolactone (Aldactone Tab*) 25 mg PO SUMOTUTHFR [facility] Last Admin: 12/04/19 11:16 Dose: 25 mg Vital Signs - 8 hr 12/04/19 12/04/19 12/04/19 06:00 07:28 07:31 Temperature Pulse Rate Respiratory 18 20 Rate Blood Pressure 104/62 (mmHg) O2 Sat by Pulse Oximetry 12/04/19 12/04/19 12/04/19 08:55 10:45 10:54 Temperature 99.0 F Pulse Rate 79 Respiratory 20 18 18 Rate Blood Pressure 106/58 (mmHg) O2 Sat by Pulse 100 Oximetry 12/04/19 12/04/19 12/04/19 10:55 11:00 12:33 Temperature 98.8 F Pulse Rate 69 Respiratory 18 16 20 Rate Blood Pressure 96/56 (mmHg) O2 Sat by Pulse 96 Oximetry Oxygen Devices in Use Now: None Exam: Appearance: montez looking, NAD, alert and interactive Ears/Nose/Mouth/Throat: Clear Oropharnyx, Mucous Membranes Moist Respiratory: Symmetrical Chest Expansion and Respiratory Effort, clear on auscultation Cardiovascular: NL Sounds; No Murmurs; No JVD, RRR Abdominal: NL Sounds; Tenderness RLQ with mild guarding, no rigidity. Extremities: No Edema Neurological: Alert and Oriented x 3 Result Diagrams: 12/03/19 20:45 12/03/19 20:45 Assess/Plan/Problems-Billing Assessment: Ms. Hou is a 44 y/o male to female transgender, with history of mitochondrial myopathy, hypertrophic cardiomyopathy with EF 30-35%, T2DM, HTN, presented wtih abdominal pain and found to have acute appendicitis. - Patient Problems (1) Preoperative cardiovascular examination Current Visit: Yes Status: Acute Priority: High Code(s): Z01.810 - ENCOUNTER FOR PREPROCEDURAL CARDIOVASCULAR EXAMINATION SNOMED Code(s): 678025807 Comment: - Patient has intermittent chest pressure as well as decreased tolerance over the last month, with her history of hypertrophic cardiomyopathy, this definitely put her at high risk - stress test showed EF 35% which is similar as before, and no reversible perfusion defect, but it's already putting him in the high risk category - Based on NSQIP surgical risk calculator, her risk of getting serious complications in appendectomy is 7.4%, while risk of getting any complication and cardiac risk is 10.2% and 0.3% seperately, which puts in above average. - If this operation is urgent or emergent, this will not affect the decision of surgery. However if this is a operation that is elective or has alternative options, nonsurgical methhods will help avoid this risk. - I informed the patient about above information, will leave to surgeon for this decision. Currently, I understand surgical team would like to try antibiotics and conservative management first. - keep hydrated definiely help with your hypertrophic myopahty. (2) Appendicitis, acute Current Visit: Yes Status: Acute Priority: High Code(s): K35.80 - UNSPECIFIED ACUTE APPENDICITIS SNOMED Code(s): 43875100 Comment: - npo, iv abx for now - if abdominl pain worsening, consider operative methods. (3) Chest pain Current Visit: Yes Status: Acute Priority: Low Code(s): R07.9 - CHEST PAIN , UNSPECIFIED SNOMED Code(s): 32547327 Comment: - no active chest pain. Stress test today as above. (4) Non-ischemic cardiomyopathy Current Visit: Yes Status: Chronic Code(s): I42.8 - OTHER CARDIOMYOPATHIES SNOMED Code(s): 91978486 Comment: - EF 34% on nuclear. No modifiable risk factors for cardiac events (5) Type II diabetes mellitus Current Visit: No Status: Chronic Priority: Medium Comment: - Glucose 110- 190's - Insulin pump at home, now off as Pt doens't have supplies at hospital - Continue Lantus and Lispro ISS, will monitor glucose Q4h Status and Disposition: Inpatient Medicine. Attestation Documenting Resident: Danay Rowe Supervising Physician: Markie Navarrete Attending/Supervising Physician Comment: Patient admitted w/ appendicitis, has h/o cardiomyopathy and mitochondrial myopathy. Surgery managing, trial of IV antibiotics at this time. Should proceed to OR if not responding or worsening. Attestation: This service has been performed in part by a resident under the direction of a teaching physician.I, Markie Navarrete, performed the service, or was physically present during the critical, or felton portions of the service, furnished by the resident. I participated in the management of the patient.
--- NOTE | 2019-12-04 14:47 | HP ---
H&P (Free Text) History and Physical: CC: ABD Pain x 4 days HPI: 44 yo F presented to ER on 12/03/2019 with RLQ ABD pain, decreased appetite and nausea. Pain began 4 days ago as mild diffuse cramping and 2 days go worsened and localized to RLQ. Last meal was dinner 2 nights ago. Last BM yesterday night. BMs have been regular for the most part and she admits no blood in stool. Confirms some intermittent fever and chills. Denies weight loss , SOB, chest pain, palpitations, diarrhea. Reports her diabetes has been well controlled with a last A1c in the range of 6. Pt is [id number] transgender. Surgical history: L knee arthroscopy, orchiectomy, tonsilectomy, ICD implantation. Denies ever problem with anesthesia, clotting, or bleeding. Meds: Wellbutrin, zoloft, lyrica, metoprolol succinate ER, humalog, mag ox. Allergies: NKDA PMH: HTN, cardiomyopathy, diabetes Family history: Noncontributory Social history: Never smoker. No alcohol or drug use. ROS: 12 point review of systems negative except as otherwise stated in HPI. Vital Signs - 8 hr 12/04/19 12/04/19 12/04/19 07:28 07:31 08:55 Temperature Pulse Rate Respiratory 20 20 Rate Blood Pressure 104/62 (mmHg) O2 Sat by Pulse Oximetry 12/04/19 12/04/19 12/04/19 10:45 10:54 10:55 Temperature 99.0 F Pulse Rate 79 Respiratory 18 18 18 Rate Blood Pressure 106/58 (mmHg) O2 Sat by Pulse 100 Oximetry 12/04/19 12/04/19 12/04/19 11:00 12:33 14:28 Temperature 98.8 F Pulse Rate 69 Respiratory 16 20 18 Rate Blood Pressure 96/56 (mmHg) O2 Sat by Pulse 96 Oximetry Laboratory Last Values WBC 12.7 10^3/uL (3.5-10.8) H 12/03/19 20:45 RBC 5.04 10^6 /uL (3.70-4.87) H 12/03/19 20:45 Hgb 15.4 g/dL (12.0-16.0) 12/03/19 20:45 Hct 45 % (35-47) 12/03/19 20:45 MCV 89 fL (80-97) 12/03/19 20:45 MCH 31 pg (27-31) 12/03/19 20:45 MCHC 34 g/dL (31-36) 12/03/19 20:45 RDW 13 % (10-15) 12/03/19 20:45 Plt Count 233 10^3/uL (150-450) 12/03/19 20:45 MPV 9.8 fL (7.4-10.4) 12/03/19 20:45 Neut % (Auto) 80.9 % 12/03/19 20:45 Lymph % (Auto) 11.2 % 12/03/19 20:45 [place] % (Auto) 7.0 % 12/03/19 20:45 Eos % (Auto) 0.4 % 12/03/19 20:45 Baso % (Auto) 0.5 % 12/03/19 20:45 Absolute Neuts (auto) 10.3 10^3/ul (1.5-7.7) H 12/03/19 20:45 Absolute Lymphs (auto) 1.4 10^3/ul (1.0-4.8) 12/03/19 20:45 Absolute Monos (auto) 0.9 10^3/ul (0-0.8) H 12/03/19 20:45 Absolute Eos (auto) 0.0 10^3/ul (0-0.6) 12/03/19 20:45 Absolute Basos (auto) 0.1 10^3/ul (0-0.2) 12/03/19 20:45 Absolute Nucleated RBC 0.0 10^3/ul 12/03/19 20:45 Nucleated RBC % 0.0 12/03/19 20:45 INR (Anticoag Therapy) 1.09 (0.82-1.09) 12/04/19 06:45 Sodium 133 mmol/L (135-145) L 12/03/19 20:45 Potassium 4.5 mmol/L (3.5-5.0) 12/03/19 20:45 Chloride 98 mmol/L (101-111) L 12/03/19 20:45 Carbon Dioxide 26 mmol/L (22-32) 12/03/19 20:45 Anion Gap 9 mmol/L (2-11) 12/03/19 20:45 BUN 27 mg/dL (6-24) H 12/03/19 20:45 Creatinine 1.50 mg/dL (0.51-0.95) H 12/03/19 20:45 Est GFR ( Amer) 45.6 (>60) 12/03/19 20:45 Est GFR (Non-Af Amer) 37.7 (>60) 12/03/19 20:45 BUN/Creatinine Ratio 18.0 (8-20) 12/03/19 20:45 Glucose 196 mg/dL (70-100) H 12/03/19 20:45 POC Glucose (mg/dL) 163 mg/dL (70-100) H 12/04/19 11:08 Hemoglobin A1c 7.9 % (4.0-5.6) H 12/03/19 20:45 Lactic Acid 2.0 mmol/L (0.5-2.0) 12/03/19 20:45 Calcium 9.2 mg/dL (8.6-10.3) 12/03/19 20:45 Total Bilirubin 0.70 mg/dL (0.2-1.0) 12/03/19 20:45 AST 12 U/L (13-39) L 12/03/19 20:45 ALT 17 U/L (7-52) 12/03/19 20:45 Alkaline Phosphatase 53 U/L (34-104) 12/03/19 20:45 C-Reactive Protein 150.20 mg/L (<8.01) H 12/03/19 20:45 Total Protein 7.1 g/dL (6.4-8.9) 12/03/19 20:45 Albumin 3.8 g/dL (3.2-5.2) 12/03/19 20:45 Globulin 3.3 g/dL (2-4) 12/03/19 20:45 Albumin/Globulin Ratio 1.2 (1-3) 12/03/19 20:45 Lipase 37 U/L (11.0-82.0) 12/03/19 20:45 Urine Color Birdie 12/03/19 21:25 Urine Appearance Cloudy 12/03/19 21:25 Urine pH 5.0 (5-9) 12/03/19 21:25 Ur Specific [place] 1.023 (1.010-1.030) 12/03/19 21:25 Urine Protein Negative (Negative) 12/03/19 21:25 Urine Ketones Negative (Negative) 12/03/19 21:25 Urine Blood Negative (Negative) 12/03/19 21:25 Urine Nitrate Negative (Negative) 12/03/19 21:25 Urine Bilirubin Negative (Negative) 12/03/19 21:25 Urine Urobilinogen Negative (Negative) 12/03/19 21:25 Ur Leukocyte Esterase Negative (Negative) 12/03/19 21:25 Urine Glucose Negative (Negative) 12/03/19 21:25 Intake and Output Last 24 Hours 12/02/19 12/03/19 12/04/19 12/05/19 06:59 06:59 06:59 06:59 Intake Total 0 0 Balance 0 0 Weight 199 lb Intake: Oral 0 0 Other: Estimated Void Medium Medium # Voids 1 2 Imaging: CT ABD/Pelvis: Appendix abnormally dilated measuring up to 9 mm diameter and fluid filled with wall thickening and wall enhancement with periappendiceal fat stranding suspicious for acute appendicitis without signs of perforation. PEX: General: Alert, in NAD or discomfort Integumentary: No jaundice or petechia HEENT: PEERLA, oropharynx clear. Heart: RRR, no MRG Lungs: CTAB, no WRR ABD: BS present. Soft, nondistended. Tender in RLQ. + guarding. No rebound tenderness. Extremities: Distal pulses intact bilaterally. No edema. Calves nontender Assessment and plan: 44 yo F with ABD pain and CT scan suggesting acute appendicitis. Conservative treatment for now, including IVF hydration and antibiotics. Pt underwent cardiac evaluation and also seen by Dr. Phipps, who agrees with plan.
[2019-12-04 15:23] LABS: ABS Basophils 0.1 10^3/ul (0-0.2); ABS Lymphocytes 1.8 10^3/ul (1.0-4.8); ABS Monocytes 0.9 10^3/ul (0-0.8); ABS Neutrophils 8.4 10^3/ul (1.5-7.7); Eosinophil % 0.4 %; Hematocrit 41 % (35-47); Hemoglobin 13.9 g/dL (12.0-16.0); Lymphocyte % 15.7 %; Mean Corpuscular HGB Conc 34 g/dL (31-36); Mean Corpuscular Hemoglobin 31 pg (27-31); Mean Corpuscular Volume 90 fL (80-97); Mean Platelet Volume 9.6 fL (7.4-10.4); Nucleated Red Blood Cells % 0.1; Platelet Count 203 10^3/uL (150-450); Red Blood Count 4.55 10^6 /uL (3.70-4.87); Red Cell Distribution Width 13 % (10-15); White Blood Count 11.1 10^3/uL (3.5-10.8)
[2019-12-04 15:57] LABS: BUN/Creatinine Ratio 20.1 (8-20); Calcium 8.6 mg/dL (8.6-10.3); EGFR African American 47.8 (>60); EGFR Non-African American 39.5 (>60); Potassium 4.3 mmol/L (3.5-5.0)
--- NOTE | 2019-12-04 17:20 | PN ---
Progress Note - Progress Note Date of Service: 12/04/19 Note: Surgery progress Note I saw and evaluated patient this afternoon. She underwent nuclear stress test, results of which I reviewed. Her EF is 34% and there is diffuse hypokinesia. She currently feels that she has a bit more pain. Her vital signs have been stable, no tachycardia, she has been afebrile. Her repeat WBC is down to 11. On exam she has point tenderness in the RLQ. I discussed with patient it is still too early to tell if she improve with medical management alone. She is concerned that even if she gets better, that the appendicitis can recur. She understands and agrees with the rationale to continue IV abx, given her high perioperative risk given her ischemic cardiomyopathy. She will remain NPO. I discussed her case with Dr. Sidhu who will see her for preoperative risk stratification and optimization in case she does fail to improve and requires surgery.
--- NOTE | 2019-12-04 17:35 | CONSULT ---
Subjective Date of Service: 12/04/19 Interval History: Admission Date: 12/03/19 Consult date 12/04/2019 Service: Surgery Aircraft Air Conditioning Mechanic: Dr. Pinto PCP SUZI Fernandez CHIEF COMPLAINT: Abdominal pain, appendicitis Reason for consult: Pre-operative cardiac risk stratification HISTORY OF PRESENT ILLNESS: Rupal Hou is a 44-year-old with a history as below. She was admitted with abdominal pain associated with fatigue and found with an appendicitis and may need surgery. She had some chest pressure at rest last week and now this has resolved. Reviewing records chest discomfort has been an ongoing intermittent symptom for years.. She can usually go up 3 flights of stairs without stopping. She has had no recent syncope, change in breathing, edema or ICD discharges. PAST MEDICAL HISTORY: 1. 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 3. Type 2 diabetes. 4. chronic kidney disease. 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 Father: CO - CO x4- due to last CO Aortic Stenosis, Diabetes. pt notes paternal grandfather had diabetes. Mother: valve replacement, heart failure, Celiac Disease. Siblings:2. 2 sisters-1 sister suffers from alcoholism SH: Personal Habits: Smoking: Patient has never smoked. Alcohol: Rarely consumes alcohol. Drug Use: Denies Drug Use. Medications Active Medications: Bupropion HCl (Wellbutrin Xl *) 150 mg PO DAILY [facility] Last Admin: 12/04/19 11:08 Dose: 150 mg Dextrose (D50w Syringe 50 Ml*) 12.5 gm IV PUSH .FOR FS < 60 - SS PRN PRN Reason: FS < 60 Estradiol (Estradiol Tab(Nf)) 2 mg PO DAILY [facility]; Protocol Last Admin: 12/04/19 11:08 Dose: Not Given Hydromorphone HCl (Dilaudid Inj*) 0.5 mg IV SLOW PU Q1H PRN PRN Reason: PAIN - SEVERE Last Admin: 12/04/19 17:12 Dose: 0.5 mg Sodium Chloride (Ns 0.9% 1000 Ml) 1,000 mls @ 50 mls/hr IV PER RATE [facility] Last Admin: 12/04/19 00:08 Dose: 50 mls/hr Piperacillin Sod/Tazobactam (Sod 3.375 gm/ Sodium Chloride) 100 mls @ 25 mls/ hr IVPB Q8H [facility] Last Admin: 12/04/19 11:09 Dose: 25 mls/hr Insulin Human Lispro (Humalog*) 3 units SUBCUT Q4H [facility] Last Admin: 12/04/19 12:32 Dose: 3 units Insulin Human Lispro (Humalog*) 0 units SUBCUT Q4H [facility]; Protocol Last Admin: 12/04/19 17:34 Dose: Not Given Losartan Potassium (Cozaar Tab*) 50 mg PO DAILY [facility] Last Admin: 12/04/19 11:07 Dose: 50 mg Metoprolol Succinate (Toprol Xl Tab*) 50 mg PO DAILY [facility] Last Admin: 12/04/19 11:07 Dose: 50 mg Ondansetron HCl (Zofran Inj*) 4 mg IV Q4H PRN PRN Reason: NAUSEA/VOMITING Pharmacy Consult (Zosyn Per Pharmacy*) 1 note FOLLOW UP . PRN PRN Reason: PER PROTOCOL Pregabalin (Lyrica 50 Mg Cap (*)) 50 mg PO BID [facility] Last Admin: 12/04/19 10:55 Dose: Not Given Sertraline HCl (Zoloft*) 100 mg PO DAILY [facility] Last Admin: 12/04/19 11:08 Dose: 100 mg Spironolactone (Aldactone Tab*) 25 mg PO SUMOTUTHFR [facility] Last Admin: 12/04/19 11:16 Dose: 25 mg Home Medications: Insulin LISPRO* [HumaLOG 100 units/ml 3 ml VIAL *] 0 units SUBCUT DAILY [History Confirmed 12/03/19] Magnesium Oxide TAB* [MagOx 400 TAB*] 400 mg PO BID 05/07/18 [History Confirmed 12/04/19] Metoprolol Succinate XL TAB* [Toprol XL TAB*] 50 mg PO DAILY 05/07/18 [History Confirmed 12/03/19] Pregabalin 50 mg CAP (*) [Lyrica 50 mg CAP (*)] 50 mg PO BID MDD 100mg 05/07/18 [History Confirmed 12/03/19] Sertraline* [Zoloft*] 100 mg PO DAILY 05/07/18 [History Confirmed 12/03/19] Bupropion XL* [Wellbutrin XL *] 150 mg PO DAILY 04/07/19 [History Confirmed ] Losartan TAB* [Cozaar TAB*] 50 mg PO DAILY 04/07/19 [History Confirmed 12/03/19] Spironolactone TAB* [Aldactone TAB 25 MG*] 25 mg PO SUMOTUTHFR 04/07/19 [ History Confirmed 12/03/19] Rizatriptan ODT (NF) [Maxalt-ELECTRICAL ENGINEERING TECHNOLOGIST (NF)] 10 mg PO DAILY PRN MDD 30 mg 12/03/19 [ History Confirmed 12/03/19] estradioL [Estradiol] 2 mg PO DAILY 12/03/19 [History Confirmed 12/03/19] Cholecalciferol (Vitamin D3) [Vitamin D3] 2,000 unit PO DAILY 12/04/19 [History Confirmed 12/04/19] Ondansetron TAB* [Zofran 4 MG Tab*] 4 mg PO Q6H PRN 12/04/19 [History Confirmed 12/04/19] Review of Systems - Measurements Intake and Output: Intake and Output Last 24 Hours 12/02/19 12/03/19 12/04/19 12/05/19 06:59 06:59 06:59 06:59 Intake Total 0 100 Output Total 370 Balance 0 -270 Weight 199 lb Intake: IV Fluids 100 Oral 0 0 Output: Urine 370 Other: Estimated Void Medium Medium # Voids 1 2 - Review of Systems Constitutional Symptoms: Positive: Weakness, Fatigue Negative: Weight Gain, Weight Loss Dermatology: Negative: Rash, Skin Lesions HEENT: Negative: Change in Hearing, Vertigo Eyes: Negative: Change in Vision, Double Vision Thyroid: Negative: Cold Intolerance, Heat Intolerance Pulmonary: Negative: Cough, Sputum, Hemoptysis, Shortness of Breath Cardiology: Positive: Chest Pain Negative: Shortness of Breath, Palpitations, Swelling of Ankles, Peripheral Vascular Dis, Edema, Claudication, Paroxysmal Nocturnal Dyspnea, Orthopnea Gastroenterology: Negative: Blood in Stools, Haematemesis, Melena Genital - Urinary: Negative: Dysuria, Hematuria Musculoskeletal: Negative: Joint Pain, Joint Stiffness Endocrinology: Negative: Polydipsia, Polyuria Hematologic/Lymphatic: Negative: Use of Anticoagulant, Use of Antiplatelet Drugs Neurology: Negative: Change in Speech, Change in Sphincter Function, Change in Walking Psychiatry: Negative: Unusual Anxiety, Suicidal Ideation Allergic/Immunologic: Positive: Other Negative: Hx HIV, Immunocompromise Review of Systems Statement: All other review of systems negative, unless stated above. Objective Vital Signs: Temp Pulse Resp BP Pulse Ox 98.4 F 64 18 109/68 95 12/04/19 14:38 12/04/19 14:38 12/04/19 17:34 12/04/19 14:38 12/04/19 14:38 Oxygen Devices in Use Now: None Appearance: nad, pleasant Ears/Nose/Mouth/Throat: NL Teeth, Lips, Gums, Clear Oropharnyx, Mucous Membranes Moist Neck: NL Appearance and Movements; NL JVP, Trachea Midline Respiratory: Symmetrical Chest Expansion and Respiratory Effort, Clear to Auscultation Cardiovascular: NL Sounds; No Murmurs; No JVD, RRR, No Edema, - - left upper chest pacemaker in place Abdominal: NL Sounds; No Tenderness; No Distention Extremities: No Edema Skin: No Rash or Ulcers Neurological: Alert and Oriented x 3 Laboratory Results: 12/04/19 15:17 12/04/19 15:17 INR (Anticoag Therapy) 1.09 (0.82-1.09) 12/04/19 06:45 Total Bilirubin 0.70 mg/dL (0.2-1.0) 12/03/19 20:45 AST 12 U/L (13-39) L 12/03/19 20:45 ALT 17 U/L (7-52) 12/03/19 20:45 Alkaline Phosphatase 53 U/L (34-104) 12/03/19 20:45 Total Protein 7.1 g/dL (6.4-8.9) 12/03/19 20:45 Albumin 3.8 g/dL (3.2-5.2) 12/03/19 20:45 Globulin 3.3 g/dL (2-4) 12/03/19 20:45 Albumin/Globulin Ratio 1.2 (1-3) 12/03/19 20:45 Diagnostic Imaging: Echocardiogram June 2010, EF 15-20%, global hypokinesis with mild mitral regurgitation, medical management pursued. Left heart catheterization August 15, 2010 - normal coronary arteries, EF 25%. Repeat echocardiogram 09/16/2010 - EF 40%. 9. Cardiac Catheterization - (04/30/2015) reveals an ejection fraction that had improved from her echo to approximately 40%. There was mild to moderate global hypokinesis. There was no significant mitral regurgitation. She had normal coronary arteries. There was no significant disease seen. She had normal right heart pressures and her thermodilution cardiac outputs varied, depending on technique. The VLADIMIR determined cardiac output was 4.6 L/minutes. The thermodilution was 9.9 L/minute. Cardiac Catheterization - (07/26/2018) [facility] Right Heart Catheterization. Chronic systolic heart failure . Normal filling pressure. Normal cardiac output. Cardiac Catheterization - (04/30/2015) reveals an ejection fraction that had improved from her echo to approximately 40 %. There was mild to moderate global hypokinesis. There was no significant mitral regurgitation. She had normal coronary arteries. There was no significant coronary artery disease seen. She had normal right heart pressures and her thermodilution cardiac outputs varied, depending on technique. The VLADIMIR determined cardiac output was 4.6 L/minutes. The thermodilution was 9.9 L/ minute. Cardiac Catheterization - (08/15/2010) - normal coronary arteries, EF 25%. d. Repeat echocardiogram 09/16/2010 - EF 40%. Cardiac Catheterization - (07/2018) Right HEart CATH at [facility] CO 5.7 l/m CI 2.75.l/m/m2 RA 7 mmHg RV 30/8 PCWP 8 mmHg Exam Date: 12/04/19 NUCLEAR CARDIAC STRESS TEST IMPRESSION: DECREASED EJECTION FRACTION WITH APICAL THINNING. NO DEFINITE REVERSIBLE PERFUSION DEFECTS. 01/2018 device interogation medtronic 98.5% biv-paced 7.2 years battery life EKG Data: 12/03/2018 NSr, v-aced Assessment/Plan Patient has no absolute cardiac contraindication to proceeding with appendectomy and can proceed without further cardiac evaluation warranted. We did discuss and patient expressed understanding that there still remains risk of cardiac complications related to surgery and anesthesia regardless of no absolute cardiac contraindications, particularly because of her complex past medical history. Patient has good insight and she does accept these risks in favor of the expected benefits the surgery is to provide: - Continue beta-gardenia without interruption - If significant electrocautery anticipated would place a magnet over device to inhibit ICD (but not pacemaker) portion of device and place external defibrillation pads on during surgery to use in the event of a ventricular arrhythmia (along with removing magnet) Thank you for allowing me to participate in the cardiovascular care of this patient. Please do not hesitate to contact me with questions or concerns.
--- NOTE | 2019-12-04 19:07 | PN ---
Progress Note - Progress Note Date of Service: 12/04/19 Note: Anesthesia, I was asked by Dr Richey to help evaluate the patient in case she needs surgery for her appendicitis. She has a long list of medical issues including nonischemic cardiomyopathy, DM, chronic renal disease with creatinines in the 1.4 range, and mitochondrial myopathy. She has an ICD. Please see Dr Hinson's cardiology consult. The patient is transgender. She is at her baseline status, and can climb 2-3 flights of stairs. Her ICD has never fired off. I personally took care of her 4-5 years ago, and she did well with a general anesthetic back then. She is obviously a high risk patient, but I don't feel she is an unreasonably high risk. If surgery is required I feel she could have it here at [facility]. OF IMPORTANCE: We need to have information on what to do with her ICD for electrocautery on her chart. It would be best to have this on both the EMR and her paper chart.
[2019-12-05] MEDS: Insulin LISPRO* 1 UNITS UNIT SUBCUT SCH ×10 (01:22→22:40)
[2019-12-05] MEDS: HYDROmorphone INJ* 0.5 MG/0.5 ML SYRINGE IV SLOW PU PRN ×5 (01:28→19:42)
[2019-12-05] MEDS: Piperacillin/Tazobactam VIAL*) 3.375 GM in NS 0.9% 100 ML* 100 ML IVPB SCH ×4 (03:33→23:50)
[2019-12-05] MEDS: Spironolactone TAB* 25 MG PO SCH (06:02)
[2019-12-05 06:12] LABS: ABS Basophils 0.1 10^3/ul (0-0.2); ABS Eosinophils 0.1 10^3/ul (0-0.6); ABS Lymphocytes 1.5 10^3/ul (1.0-4.8); ABS Monocytes 0.8 10^3/ul (0-0.8); ABS Neutrophils 7.2 10^3/ul (1.5-7.7); Hematocrit 39 % (35-47); Hemoglobin 13.5 g/dL (12.0-16.0); Lymphocyte % 15.3 %; Mean Corpuscular HGB Conc 34 g/dL (31-36); Mean Corpuscular Hemoglobin 31 pg (27-31); Mean Corpuscular Volume 90 fL (80-97); Mean Platelet Volume 9.8 fL (7.4-10.4); Platelet Count 201 10^3/uL (150-450); Red Blood Count 4.34 10^6 /uL (3.70-4.87); Red Cell Distribution Width 13 % (10-15); White Blood Count 9.6 10^3/uL (3.5-10.8)
[2019-12-05 06:23] LABS: Calcium 8.4 mg/dL (8.6-10.3); Potassium 4.6 mmol/L (3.5-5.0)
[2019-12-05 06:28] LABS: BUN/Creatinine Ratio 20.7 (8-20); EGFR African American 49.4 (>60); EGFR Non-African American 40.8 (>60)
--- NOTE | 2019-12-05 08:20 | PN ---
Progress Note - Progress Note Date of Service: 12/05/19 Note: S: Reports her pain is relatively unchanged since yesterday, but her overall condition feels slightly better. States no nausea, BM, fever, chills, chest pains, palpitations, SOB. Passing flatus and ambulating well. O: Vital Signs - 8 hr 12/05/19 12/05/19 12/05/19 01:28 01:35 03:31 Temperature Pulse Rate Respiratory 16 16 16 Rate Blood Pressure (mmHg) O2 Sat by Pulse Oximetry 12/05/19 12/05/19 12/05/19 03:34 03:38 05:29 Temperature 98.1 F Pulse Rate 65 Respiratory 16 17 16 Rate Blood Pressure 111/65 (mmHg) O2 Sat by Pulse 100 Oximetry 12/05/19 07:00 Temperature 98.5 F Pulse Rate 62 Respiratory 16 Rate Blood Pressure 97/58 (mmHg) O2 Sat by Pulse 95 Oximetry Intake and Output Last 24 Hours 12/03/19 12/04/19 12/05/19 12/06/19 06:59 06:59 06:59 06:59 Intake Total 0 1190 Output Total 970 Balance 0 220 Weight 199 lb Intake: IV Fluids 1080 NS (0.9%) 980 IVPB 110 ABX - PIPERACILLIN 110 Oral 0 0 Output: Urine 970 Other: Estimated Void Medium Medium # Voids 1 2 Laboratory Last Values WBC 9.6 10^3/uL (3.5-10.8) 12/05/19 05:59 RBC 4.34 10^6 /uL (3.70-4.87) 12/05/19 05:59 Hgb 13.5 g/dL (12.0-16.0) 12/05/19 05:59 Hct 39 % (35-47) 12/05/19 05:59 MCV 90 fL (80-97) 12/05/19 05:59 MCH 31 pg (27-31) 12/05/19 05:59 MCHC 34 g/dL (31-36) 12/05/19 05:59 RDW 13 % (10-15) 12/05/19 05:59 Plt Count 201 10^3/uL (150-450) 12/05/19 05:59 MPV 9.8 fL (7.4-10.4) 12/05/19 05:59 Neut % (Auto) 74.5 % 12/05/19 05:59 Lymph % (Auto) 15.3 % 12/05/19 05:59 [place] % (Auto) 8.7 % 12/05/19 05:59 Eos % (Auto) 1.0 % 12/05/19 05:59 Baso % (Auto) 0.5 % 12/05/19 05:59 Absolute Neuts (auto) 7.2 10^3/ul (1.5-7.7) 12/05/19 05:59 Absolute Lymphs (auto) 1.5 10^3/ul (1.0-4.8) 12/05/19 05:59 Absolute Monos (auto) 0.8 10^3/ul (0-0.8) 12/05/19 05:59 Absolute Eos (auto) 0.1 10^3/ul (0-0.6) 12/05/19 05:59 Absolute Basos (auto) 0.1 10^3/ul (0-0.2) 12/05/19 05:59 Absolute Nucleated RBC 0.0 10^3/ul 12/05/19 05:59 Nucleated RBC % 0.0 12/05/19 05:59 INR (Anticoag Therapy) 1.09 (0.82-1.09) 12/04/19 06:45 Sodium 138 mmol/L (135-145) 12/05/19 05:59 Potassium 4.6 mmol/L (3.5-5.0) 12/05/19 05:59 Chloride 105 mmol/L (101-111) 12/05/19 05:59 Carbon Dioxide 24 mmol/L (22-32) 12/05/19 05:59 Anion Gap 9 mmol/L (2-11) 12/05/19 05:59 BUN 29 mg/dL (6-24) H 12/05/19 05:59 Creatinine 1.40 mg/dL (0.51-0.95) H 12/05/19 05:59 Est GFR ( Amer) 49.4 (>60) 12/05/19 05:59 Est GFR (Non-Af Amer) 40.8 (>60) 12/05/19 05:59 BUN/Creatinine Ratio 20.7 (8-20) H 12/05/19 05:59 Glucose 113 mg/dL (70-100) H 12/05/19 05:59 POC Glucose (mg/dL) 108 mg/dL (70-100) H 12/05/19 05:22 Hemoglobin A1c 7.9 % (4.0-5.6) H 12/03/19 20:45 Lactic Acid 2.0 mmol/L (0.5-2.0) 12/03/19 20:45 Calcium 8.4 mg/dL (8.6-10.3) L 12/05/19 05:59 Total Bilirubin 0.70 mg/dL (0.2-1.0) 12/03/19 20:45 AST 12 U/L (13-39) L 12/03/19 20:45 ALT 17 U/L (7-52) 12/03/19 20:45 Alkaline Phosphatase 53 U/L (34-104) 12/03/19 20:45 C-Reactive Protein 150.20 mg/L (<8.01) H 12/03/19 20:45 Total Protein 7.1 g/dL (6.4-8.9) 12/03/19 20:45 Albumin 3.8 g/dL (3.2-5.2) 12/03/19 20:45 Globulin 3.3 g/dL (2-4) 12/03/19 20:45 Albumin/Globulin Ratio 1.2 (1-3) 12/03/19 20:45 Lipase 37 U/L (11.0-82.0) 12/03/19 20:45 Urine Color Birdie 12/03/19 21:25 Urine Appearance Cloudy 12/03/19 21:25 Urine pH 5.0 (5-9) 12/03/19 21:25 Ur Specific [place] 1.023 (1.010-1.030) 12/03/19 21:25 Urine Protein Negative (Negative) 12/03/19 21:25 Urine Ketones Negative (Negative) 12/03/19 21: Urine Blood Negative (Negative) 12/03/19 21:25 Urine Nitrate Negative (Negative) 12/03/19 21: Urine Bilirubin Negative (Negative) 12/03/19 21: Urine Urobilinogen Negative (Negative) 12/03/19 21: Ur Leukocyte Esterase Negative (Negative) 12/03/19 21:25 Urine Glucose Negative (Negative) 12/03/19 21:25 PEX: General: Alert, in NAD or discomfort Integumentary: No rashes, jaundice, lesions HEENT: PERRLA. Oropharynx clear Heart: RRR, no MRG Lungs: CTAB, no WRR ABD: BS present. Soft, nondistended. Tender in RLQ. No rebound tenderness Extremities: Calves nontender. No edema. Distal pulses intact bilaterally Assessment and plan: 44 yo F with acute appendicitis, currently being treated conservatively with antibiotics and IVF hydration. Anesthesia and cardiology consulted to help evaluate risk of surgery, which appears to be above average, but not an unreasonably high risk. Continue conservative treatment as of now. Continue ambulation and NPO.
[2019-12-05] MEDS: BuPROPion XL* 150 MG TAB.XL PO SCH (08:35)
[2019-12-05] MEDS: Pregabalin 50 mg CAP (*) PO SCH ×2 (08:35→22:39)
[2019-12-05] MEDS: Sertraline* 100 MG TAB PO SCH (08:36)
[2019-12-05] MEDS: Losartan TAB* 25 MG PO SCH (09:17)
[2019-12-05] MEDS: Metoprolol Succinate XL TAB* 50 MG PO SCH (09:17)
[2019-12-05] MEDS: ESTRADIOL 1 MG PO SCH (09:31)
--- NOTE | 2019-12-05 09:37 | PN ---
Progress Note - Progress Note Date of Service: 12/05/19 SOAP: Subjective: She was feeling a little better last night but started moving around this morning and is having more pain. No N/V, passing some flatus Consultants notes reviewed from yesterday Objective: Temp Pulse Resp BP Pulse Ox 98.5 F 62 19 97/58 95 12/05/19 07:00 12/05/19 07:00 12/05/19 08:35 12/05/19 07:00 12/05/19 07:00 Intake & Output 12/03/19 12/04/19 12/05/19 12/06/19 06:59 06:59 06:59 06:59 Intake Total 0 1190 103 Output Total 970 Balance 0 220 103 Weight 199 lb Intake: IV Fluids 1080 NS (0.9%) 980 IVPB 110 103 ABX - PIPERACILLIN 110 103 Oral 0 0 Output: Urine 970 Other: Estimated Void Medium Medium # Voids 1 2 PEX: Uncomfortable Lungs are clear Cor is RRR ABD is soft and non-distended. Bowel sounds are present. Tender RLQ with guarding and localized peritoneal irritation. No generalized peritonitis Laboratory Results - last 24 hr 12/03/19 12/04/19 12/04/19 20:45 11:08 15:17 WBC 11.1 H RBC 4.55 Hgb 13.9 Hct 41 MCV 90 MCH 31 MCHC 34 RDW 13 Plt Count 203 MPV 9.6 Neut % (Auto) 75.2 Lymph % (Auto) 15.7 [place] % (Auto) 8.2 Eos % (Auto) 0.4 Baso % (Auto) 0.5 Absolute Neuts (auto) 8.4 H Absolute Lymphs (auto) 1.8 Absolute Monos (auto) 0.9 H Absolute Eos (auto) 0.0 Absolute Basos (auto) 0.1 Absolute Nucleated RBC 0.0 Nucleated RBC % 0.1 Sodium Potassium Chloride Carbon Dioxide Anion Gap BUN Creatinine Est GFR ( Amer) Est GFR (Non-Af Amer) BUN/Creatinine Ratio Glucose POC Glucose (mg/dL) 163 H Hemoglobin A1c 7.9 H Calcium 12/04/19 12/04/19 12/04/19 15:17 17:15 21:47 WBC RBC Hgb Hct MCV MCH MCHC RDW Plt Count MPV Neut % (Auto) Lymph % (Auto) [place] % (Auto) Eos % (Auto) Baso % (Auto) Absolute Neuts (auto) Absolute Lymphs (auto) Absolute Monos (auto) Absolute Eos (auto) Absolute Basos (auto) Absolute Nucleated RBC Nucleated RBC % Sodium 136 Potassium 4.3 Chloride 103 Carbon Dioxide 24 Anion Gap 9 BUN 29 H Creatinine 1.44 H Est GFR ( Amer) 47.8 Est GFR (Non-Af Amer) 39.5 BUN/Creatinine Ratio 20.1 H Glucose 117 H POC Glucose (mg/dL) 131 H 121 H Hemoglobin A1c Calcium 8.6 12/05/19 12/05/19 12/05/19 01:16 05:22 05:59 WBC 9.6 RBC 4.34 Hgb 13.5 Hct 39 MCV 90 MCH 31 MCHC 34 RDW 13 Plt Count 201 MPV 9.8 Neut % (Auto) 74.5 Lymph % (Auto) 15.3 [place] % (Auto) 8.7 Eos % (Auto) 1.0 Baso % (Auto) 0.5 Absolute Neuts (auto) 7.2 Absolute Lymphs (auto) 1.5 Absolute Monos (auto) 0.8 Absolute Eos (auto) 0.1 Absolute Basos (auto) 0.1 Absolute Nucleated RBC 0.0 Nucleated RBC % 0.0 Sodium Potassium Chloride Carbon Dioxide Anion Gap BUN Creatinine Est GFR ( Amer) Est GFR (Non-Af Amer) BUN/Creatinine Ratio Glucose POC Glucose (mg/dL) 111 H 108 H Hemoglobin A1c Calcium 12/05/19 12/05/19 05:59 09:03 WBC RBC Hgb Hct MCV MCH MCHC RDW Plt Count MPV Neut % (Auto) Lymph % (Auto) [place] % (Auto) Eos % (Auto) Baso % (Auto) Absolute Neuts (auto) Absolute Lymphs (auto) Absolute Monos (auto) Absolute Eos (auto) Absolute Basos (auto) Absolute Nucleated RBC Nucleated RBC % Sodium 138 Potassium 4.6 Chloride 105 Carbon Dioxide 24 Anion Gap 9 BUN 29 H Creatinine 1.40 H Est GFR ( Amer) 49.4 Est GFR (Non-Af Amer) 40.8 BUN/Creatinine Ratio 20.7 H Glucose 113 H POC Glucose (mg/dL) 88 Hemoglobin A1c Calcium 8.4 L Assessment: Acute appendicitis-Despite a normal WBC and no fever, she is having more pain this morning and I feel proceeding with laparoscopic appendectomy is indicated at this time. Cardiomyopathy-She has a negative stress test yesterday and was seen by medicine /cardiology/anesthesiology and felt to be an acceptable surgical risk. Plan: Laparoscopic appendectomy today. The procedure was discussed with the patient and risks of, but not limited to, bleeding, infection, abscess, injury to peritoneal and retroperitoneal organs, open procedure, drain placement, the increased risk of anesthesia due to her cardiac condition that includes, , renal failure, pulmonary failure and chance of admission to the ICU post-op were all explained. She understands that she is at increased risk for all these complications due to her cardiac issues and also that continued treatment with IV abx remains an option that may be successful during this admission. She accepts these risks and wishes to have surgery and gives her consent to proceed to the OR today.
[2019-12-05] MEDS ORDERED: Bupivacaine 0.25% EPI 200,000* 30 ML SDV ONE (10:13)
[2019-12-05] MEDS ORDERED: Acetaminophen IV 1GM/100ML * 100 ML ONE (11:04)
[2019-12-05] MEDS ORDERED: Succinylcholine* 20 MG/ML 10 ML VIAL ONE (11:04)
[2019-12-05] MEDS ORDERED: Lidocaine 2% PF * 5 ML VIAL ONE (11:04)
[2019-12-05] MEDS ORDERED: fentaNYL* 50 MCG/ML 5 ML VIAL (250 MCG VIAL) ONE (11:04)
[2019-12-05] MEDS ORDERED: Midazolam* 1 MG/ML 2 ML VIAL (2 MG) ONE (11:04)
[2019-12-05] MEDS ORDERED: Rocuronium* 10 MG/ML VIAL ONE (11:04)
[2019-12-05] MEDS ORDERED: Propofol* 10 MG/ML 20 ML BTL ONE (11:04)
[2019-12-05] MEDS ORDERED: Neostigmine Methylsulfate* 1 MG/ML 10 ML VIAL (1 mg/ml) ONE (12:45)
[2019-12-05] MEDS ORDERED: Glycopyrrolate IV* 0.2 MG/ML 1 ML VIAL ONE (12:45)
--- NOTE | 2019-12-05 12:50 | OP ---
Operative Report - Blank - Operative Report Date of Operation: 12/05/19 Note: Operative Note Preoperative Dx:Appendicitis Postoperative Dx:Same Procedure:Laparoscopic Appendectomy Anesthesia: GET Surgeon: Desire NORMAN Assist: Karmen HOUSE EBL: < 25cc Specimen:Appendix Fluids: 350cc Drain: none Findings: as above
[2019-12-05] MEDS ORDERED: NS 0.9% 1000 ML** 1,000 ML IV SCH (13:00)
[2019-12-05] MEDS ORDERED: Naloxone* 0.4 MG/ML 1 ML VIAL IV PRN (13:26)
[2019-12-05] MEDS ORDERED: fentaNYL* 50 MCG/ML 2 ML VIAL (100 MCG VIAL) IV PRN (13:26)
[2019-12-05] MEDS ORDERED: HYDROmorphone INJ1* 1 MG/ML SYRINGE IV PRN (13:26)
[2019-12-05] MEDS ORDERED: DiMENhydriNATE IV* 50 MG/ML VIAL IV PUSH PRN (13:26)
[2019-12-05] MEDS ORDERED: DiMENhydriNATE IV* 50 MG/ML VIAL ONE (14:00)
--- NOTE | 2019-12-05 16:16 | PN ---
Subjective Date of Service: 12/05/19 Interval History: f/u post-op check, mitochondrial myopathy related NICM s/p biv-icd doing well post-op earlier today eating clears no cp or dyspnea visiting with family Medications Active Medications: Acetaminophen (Tylenol Tab*) 650 mg PO Q4H PRN PRN Reason: PAIN-MILD/TEMP >/= 100.4 Bupropion HCl (Wellbutrin Xl *) 150 mg PO DAILY [facility] Last Admin: 12/05/19 08:35 Dose: 150 mg Dextrose (D50w Syringe 50 Ml*) 12.5 gm IV PUSH .FOR FS < 60 - SS PRN PRN Reason: FS < 60 Estradiol (Estradiol Tab(Nf)) 2 mg PO DAILY [facility]; Protocol Last Admin: 12/05/19 09:31 Dose: 2 mg Hydromorphone HCl (Dilaudid Inj*) 0.5 mg IV SLOW PU Q1H PRN PRN Reason: PAIN - SEVERE Last Admin: 12/05/19 08:30 Dose: 0.5 mg Piperacillin Sod/Tazobactam (Sod 3.375 gm/ Sodium Chloride) 100 mls @ 25 mls/ hr IVPB 0730,1530,2330 [facility] Sodium Chloride (Ns 0.9% 1000 Ml) 1,000 mls @ 75 mls/hr IV PER RATE [facility] Insulin Human Lispro (Humalog*) 0 units SUBCUT Q4H [facility]; Protocol Last Admin: 12/05/19 15:11 Dose: Not Given Losartan Potassium (Cozaar Tab*) 50 mg PO DAILY [facility] Last Admin: 12/05/19 09:17 Dose: Not Given Metoprolol Succinate (Toprol Xl Tab*) 50 mg PO DAILY [facility] Last Admin: 12/05/19 09:17 Dose: Not Given Ondansetron HCl (Zofran Inj*) 4 mg IV Q4H PRN PRN Reason: NAUSEA/VOMITING Last Admin: 12/05/19 05:29 Dose: 4 mg Oxycodone/Acetaminophen (Percocet 5/325 Tab*) 1 tab PO Q4H PRN PRN Reason: PAIN - MODERATE Pharmacy Consult (Zosyn Per Pharmacy*) 1 note FOLLOW UP . PRN PRN Reason: PER PROTOCOL Pregabalin (Lyrica 50 Mg Cap (*)) 50 mg PO BID [facility] Last Admin: 12/05/19 08:35 Dose: Not Given Sertraline HCl (Zoloft*) 100 mg PO DAILY [facility] Last Admin: 12/05/19 08:36 Dose: 100 mg Spironolactone (Aldactone Tab*) 25 mg PO SUMOTUTHFR [facility] Last Admin: 12/05/19 06:02 Dose: 25 mg Objective Vital Signs: Temp Pulse Resp BP Pulse Ox 97.8 F 65 18 105/56 100 12/05/19 15:05 12/05/19 15:05 12/05/19 15:05 12/05/19 15:05 12/05/19 15:05 Oxygen Devices in Use Now: None Appearance: nad, pleasant Neck: Trachea Midline Respiratory: Symmetrical Chest Expansion and Respiratory Effort Cardiovascular: RRR, - Extremities: No Edema Neurological: Alert and Oriented x 3 Laboratory Results: 12/05/19 05:59 12/05/19 05:59 INR (Anticoag Therapy) 1.09 (0.82-1.09) 12/04/19 06:45 Total Bilirubin 0.70 mg/dL (0.2-1.0) 12/03/19 20:45 AST 12 U/L (13-39) L 12/03/19 20:45 ALT 17 U/L (7-52) 12/03/19 20:45 Alkaline Phosphatase 53 U/L (34-104) 12/03/19 20:45 Total Protein 7.1 g/dL (6.4-8.9) 12/03/19 20:45 Albumin 3.8 g/dL (3.2-5.2) 12/03/19 20:45 Globulin 3.3 g/dL (2-4) 12/03/19 20:45 Albumin/Globulin Ratio 1.2 (1-3) 12/03/19 20:45 Diagnostic Imaging: Echocardiogram June 2010, EF 15-20%, global hypokinesis with mild mitral regurgitation, medical management pursued. Left heart catheterization August 15, 2010 - normal coronary arteries, EF 25%. Repeat echocardiogram 09/16/2010 - EF 40%. 9. Cardiac Catheterization - (04/30/2015) reveals an ejection fraction that had improved from her echo to approximately 40%. There was mild to moderate global hypokinesis. There was no significant mitral regurgitation. She had normal coronary arteries. There was no significant disease seen. She had normal right heart pressures and her thermodilution cardiac outputs varied, depending on technique. The VLADIMIR determined cardiac output was 4.6 L/minutes. The thermodilution was 9.9 L/minute. Cardiac Catheterization - (07/26/2018) [facility] Right Heart Catheterization. Chronic systolic heart failure . Normal filling pressure. Normal cardiac output. Cardiac Catheterization - (04/30/2015) reveals an ejection fraction that had improved from her echo to approximately 40 %. There was mild to moderate global hypokinesis. There was no significant mitral regurgitation. She had normal coronary arteries. There was no significant coronary artery disease seen. She had normal right heart pressures and her thermodilution cardiac outputs varied, depending on technique. The VLADIMIR determined cardiac output was 4.6 L/minutes. The thermodilution was 9.9 L/ minute. Cardiac Catheterization - (08/15/2010) - normal coronary arteries, EF 25%. d. Repeat echocardiogram 09/16/2010 - EF 40%. Cardiac Catheterization - (07/2018) Right HEart CATH at [facility] CO 5.7 l/m CI 2.75.l/m/m2 RA 7 mmHg RV 30/8 PCWP 8 mmHg Exam Date: 12/04/19 NUCLEAR CARDIAC STRESS TEST IMPRESSION: DECREASED EJECTION FRACTION WITH APICAL THINNING. NO DEFINITE REVERSIBLE PERFUSION DEFECTS. 01/2018 device interogation medtronic 98.5% biv-paced 7.2 years battery life EKG Data: 12/03/2018 NSr, v-aced Assessment/Plan Patient doing well post-operatively. Continue BAND PRESSER cardiomyopathy medications. Will sign off, please reconsult as needed
[2019-12-05] MEDS: oxyCODONE/Acetamin 5/325 MG* TAB PO PRN ×2 (16:25→22:39)
[2019-12-05] MEDS: Acetaminophen TAB* 325 MG PO PRN ×2 (18:10→23:57)
--- NOTE | 2019-12-05 23:28 | OP ---
DATE OF OPERATION: 12/05/19 - ROOM #342 DATE OF : 75 SURGEON: Milton Phipps MD DIRECTOR OF COMPLIANCE: SUZI Arredondo ANESTHESIOLOGIST: Dr. Ortiz. ANESTHESIA: General with local. PRE-OP DIAGNOSIS: Acute appendicitis. POST-OP DIAGNOSIS: Acute suppurative appendicitis. OPERATIVE PROCEDURE: Laparoscopic appendectomy. ESTIMATED BLOOD LOSS: Minimal. IV FLUIDS: 350 cc of crystalloid. DRAINS: None. SPECIMENS: Appendix. COMPLICATIONS: None. FINDINGS: Acute suppurative appendicitis without evidence of perforation, gangrene or peritonitis. DESCRIPTION OF PROCEDURE: Written informed consent was obtained, the abdomen was marked with indelible ink and preoperative antibiotics were administered. The patient was taken to the operating room and placed in the supine position. Sequential compression devices and a warming blanket were applied. A magnet was placed on her existing AICD. A time-out verification was completed. A small transverse incision was made just above the umbilicus and the peritoneal cavity was entered under direct vision. A 12 mm blunt port was inserted and the abdomen was insufflated to 12 mmHg. Under direct vision, a 5 mm port was placed in left lower abdominal wall and a second 5 mm port was placed in the suprapubic position. There was no evidence purulent peritonitis. There was a small amount of free fluid in the pelvis. This was nonpurulent. There was some omentum adherent to the anterior abdominal wall in the right lower quadrant. This was bluntly reflected superiorly. Terminal ileum was adherent as well to an underlying appendix, which extended down towards the pelvis. There was some of the fat from the sigmoid colon, which was also adherent to this, but these adhesions were flimsy and taken down easily with blunt dissection to expose the appendix. She was suppuratively inflamed with an edematous mesentery, but no evidence of perforation or gangrene. The mesoappendix was then taken sequentially from its tip to the base with a LigaSure device. I did mobilize the cecum slightly laterally where there were some peritoneal attachments to expose the base of the appendix as well as the cecum in preparation for stapling. The base of the appendix and cecum were viable and with minimal inflammation. A tabor load of a 45-mm stapler was then used to divide and amputate the appendix. It was placed in an Endo catch bag and brought out through the umbilical incision. Right lower quadrant was irrigated. Hemostasis was assured. The staple line was intact without bleeding. A liter of normal saline was used to irrigate the pelvis and right lower quadrant. The terminal ileum also was unremarkable. All ports removed under direct vision of the camera. The umbilical fascia was closed with interrupted 0 Vicryl suture. The skin at all 3 incisions were approximated with subcuticular 4-0 Vicryl suture. Wound glue was placed on the 3 incisions. The patient tolerated the procedure well and was taken to the recovery room in stable condition. [id number]/[facility] #: [id number] [facility]
[2019-12-06] MEDS: oxyCODONE/Acetamin 5/325 MG* TAB PO PRN ×2 (02:48→09:18)
[2019-12-06] MEDS: Insulin LISPRO* 1 UNITS UNIT SUBCUT SCH (02:54)
[2019-12-06] MEDS: Piperacillin/Tazobactam VIAL*) 3.375 GM in NS 0.9% 100 ML* 100 ML IVPB SCH (07:29)
[2019-12-06] MEDS ORDERED: Insulin LISPRO* 1 UNITS UNIT SUBCUT SCH (07:30)
[2019-12-06 08:11] VITALS: BP 115/78
[2019-12-06] MEDS: Pregabalin 50 mg CAP (*) PO SCH ×2 (09:19→09:22)
[2019-12-06] MEDS: BuPROPion XL* 150 MG TAB.XL PO SCH (09:19)
[2019-12-06] MEDS: Losartan TAB* 25 MG PO SCH (09:19)
[2019-12-06] MEDS: Sertraline* 100 MG TAB PO SCH (09:19)
[2019-12-06] MEDS: ESTRADIOL 1 MG PO SCH (09:20)
[2019-12-06] MEDS: Metoprolol Succinate XL TAB* 50 MG PO SCH (09:20)
--- NOTE | 2019-12-06 09:49 | PN ---
Progress Note - Progress Note Date of Service: 12/06/19 SOAP: Subjective: Pain controlled with Percocet. Reports no BM. Tolerating diet without N/V. Objective: Vital Signs Temp 98.4 F 12/06/19 08:10 Pulse 63 12/06/19 08:10 Resp 16 12/06/19 09:18 BP 115/78 12/06/19 08:10 Pulse Ox 98 12/06/19 08:10 Gen: sitting up in bed; NAD Abd: incisions c/d/i; no erythema; soft; min tenderness. Intake & Output 12/05/19 12/06/19 12/06/19 18:59 06:59 18:59 Intake Total 1801 2095 360 Output Total 550 1150 Balance 1251 945 360 Intake: IV Fluids 1458 515 ABX - PIPERACILLIN 215 LR 750 NS (0.9%) 608 300 NS 100ML, Zosyn 3.375G 100 IVPB 103 ABX - PIPERACILLIN 103 Oral 240 1580 360 Output: Urine 550 1150 Other: Date of Last Bowel 12/06/2019 Movement # Bowel Movements 0 1 Estimated Stool Amount Medium Assessment: POD#1 s/p lap appendectomy. Doing well. Cardiomyopathy stable. Plan: Cont diet. Shower daily. Cont home meds. Discharge home.
== END 2019-12-06 12:20 | disposition home or self-care (01) ==
LOC: ED 17:22 → SSU 22:45
PROVIDERS: ADMIT Surgery; ATTEND Surgery
DX: K35.890 Other acute appendicitis without perforation or gangrene (principal); R10.31 Right lower quadrant pain; E11.22 Type 2 diabetes mellitus with diabetic chronic kidney disease; I13.0 Hypertensive heart and chronic kidney disease with heart failure and stage 1 through stage 4 chronic kidney disease, or unspecified chronic kidney disease; N18.3 Chronic kidney disease, stage 3 (moderate); I50.22 Chronic systolic (congestive) heart failure; F32.9 Major depressive disorder, single episode, unspecified; I42.8 Other cardiomyopathies; F64.0 Transsexualism; J02.9 Acute pharyngitis, unspecified; G71.3 Mitochondrial myopathy, not elsewhere classified; Z79.818 Long term (current) use of other agents affecting estrogen receptors and estrogen levels; Z79.4 Long term (current) use of insulin; Z79.899 Other long term (current) drug therapy; Z95.810 Presence of automatic (implantable) cardiac defibrillator; Z79.811 Long term (current) use of aromatase inhibitors; R94.31 Abnormal electrocardiogram [ECG] [EKG]; Z82.49 Family history of ischemic heart disease and other diseases of the circulatory system
CPT/HCPCS: 36415; 74177; 78452; 80048; 80053; 81003; 83036; 83605; 83690; 85025; 85610; 86140; 87040; 88304; 93005; 93017; 96361; 96365; 96366; 96375; 96376; 99284; A9270-GY; A9502; C1776; G0378; J0280; J0330; J1170; J1240; J2250; J2270; J2405; J2543; J2704; J2710; J2785; J3010; Q9967

== ENCOUNTER 2019-12-20 15:01 | Emergency (ER) | payer MEDICARE ==
--- OUTSIDE RECORDS SUMMARY | 2019-12-20 15:07 | XMS REPORT | Continuity of Care Document ---
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 Problems Active Problems Provider Date Primary cardiomyopathy Sonu Faye M.D., [facility], [facility] Onset: 07/28/2013 Hyperlipidemia Sonu Faye M.D., [facility], [facility] Onset: 07/28/2013 Essential hypertension Sonu Faye M.D., [facility], [facility] Onset: 07/19/2015 Cardiomyopathy, unspecified Sonu Faye M.D., [facility], [facility] Onset: 08/17/2015 Hypertrophic mitochondrial Sonu Faye M.D., [facility], [facility] Onset: 03/29/2017 cardiomyopathy Automatic implantable cardiac Sonu Faye M.D., [facility] Onset: 2016 defibrillator in situ Social History Type Date Description Comments Sex Unknown Tobacco Use Start: Unknown Never Smoked Cigarettes Smoking Status Reviewed: 12/16/19 Never Smoked Cigarettes ETOH Use Rarely consumes alcohol Tobacco Use Start: Unknown Patient has never smoked Recreational Drug Use Denies Drug Use Exercise Type/Frequency Exercises regularly walks with friends 1-2 times a week, [employer] 2 days a week Allergies, Adverse Reactions, Alerts Active Allergies Reaction Severity Comments Date NKDA 12/01/2015 Dust 10/09/2012 Mold 10/09/2012 Pollen 10/09/2012 Medications Active Medications SIG Qnty Indications Ordering Date Provider Imodium A-D up to 60 mL/daily Unknown 08/25/2019 1mg/7.5ML prn Liquid Losartan Potassium Take 1 Tablet By Unknown 50mg Mouth Once Daily Tablets In The Morning For High Blood Pressure Bupropion HCL ER (XL) 1 tablet po daily Cornelius, SUZI Davies 150mg Tablets ER 24HR Metoprolol Succinate 1 by mouth every 90tabs Unknown ER day 50mg Tablets ER 24HR Zyrtec Allergy take one tablet by Unknown 10mg mouth as needed Capsules Levocarnitine 1 tablet po twice Macrina, 330mg daily Am/PM ( Has MD Tashia Tablets been off 3-4 months ) Calcium 1 tablet po daily Unknown 600mg ( Recommend by Bone Density MD started taking 06/11/17) Insulin Pump /Humalog continous ( Unknown started 3 weeks ago , Dr. Schrader ) Rizatriptan Benzoate 1 tablet po onset Unknown 10mg of migraine as Tablets Dispers needed Acetaminophen 2 po daily as Unknown 500mg needed Caplets Zoloft 1 by mouth every Unknown 100mg Tablets day ( med change increase January 2017) Lyrica 1 by mouth bid Unknown 50mg Capsules Percocet 1 by mouth every 6 Unknown 5-325mg Tablets hours as needed ( last taken 6 months ago January 2017) Magnesium Oxide 1 by mouth twice Unknown 400mg daily Tablets Vitamin D3 1 by mouth every Unknown 2000Unit day Capsules Fluticasone Propionate 1 spray each 16gm Unknown nostril daily as 50mcg/Act Suspension needed Fish Oil 2 by mouth every Unknown 1000mg Capsules day Estradiol 2 po qd Unknown 1mg Tablets Spironolactone 1 po every day Unknown 25mg except wed and sat Tablets Immunizations Description No Information Available Vital Signs Date Vital Result Comment 12/16/2019 9:55am Height 70.5 inches 5'10.50" Weight 195.00 lb Heart Rate 76 /min BP Systolic 120 mmHg BP Diastolic 82 mmHg Respiratory Rate 16 /min Body Temperature 97.1 F BMI (Body Mass Index) 27.6 kg/m2 08/26/2019 2:01pm Height 70.5 inches 5'10.50" Weight 198.38 lb Heart Rate 54 /min R. radial, regular BP Systolic Sitting 120 mmHg Ra, reg cuff BP Diastolic Sitting 92 mmHg Ra, reg cuff BP Systolic Standing 118 mmHg Ra, reg cuff BP Diastolic Standing 98 mmHg Ra, reg cuff BMI (Body Mass Index) 28.1 kg/m2 Ejection Fraction 30-35% 04/07/19 Results Test Acquired Date Facility Test Result H/L Range Note Surgical 12/05/2019 [facility] Surgical SEE RESULT [address] [place] [address] [phone] PDFReport SEE IMAGE 1 SEE RESULT BELOW Name: RUPAL PHILIPPE : [address]: Miltno Phipps MD Acct: [id number] Unit: [id number] AGE: 44 Location: [place] [address] Re12/03/19 Dis: 12/06/19 SEX: F Status: DIS Naa SPEC: [id number] FE: 12/05/19-1227 [facility] DR: Milton Phipps MD REQ: [id number] RECD: 12/05/19 STATUS: SOUT _ ORDERED: LEVEL 3 FINAL DIAGNOSIS Appendix, appendectomy: -- Acute suppurative appendicitis and abelardo-appendicitis. PRE-OPERATIVE DIAGNOSIS Acute appendicitis GROSS DESCRIPTION The specimen is received in formalin labeled, Appendix, and consists of an 8.8 by up to 1.0 cm vermiform appendix with scant attached mesoappendix. The serosa is mottled red-brown, focally denuded to firm tabor pink. 2.8 cm from the distal tip is a 0.7 x 0.4 cm blanched white focally eroded area without perforation. No overt perforation is identified. The wall thickness ranges from less than 0.1 cm to 0.2 cm. The mucosa is mottled brown-kaplan to black-red markedly hemorrhagic and focally necrotic to distally white-pink. The lumen ranges from less than 0.1 cm to 0.5 cm and contains predominantly hemorrhagic loose material. The denuded area is inked black, eroded lesion is inked blue. The specimen is serially sectioned and provider service representative sections are submitted in one cassette. Signed by and Reported on: Lori Bryant MD 12/08/19 1540 END OF REPORT DEPARTMENT OF PATHOLOGY, [address] [place] [address] Juan Miguel Foy M.D. Director [facility] # [id number] Procedures Date Code Description Status 12/05/2019 94109 Laparoscopy, Surgical, Appendectomy Completed 12/05/2019 27668 Laparoscopy, Surgical, Appendectomy Completed 12/04/2019 83390 Treadmill Interp/Report Only Completed 12/04/2019 50175 Stress Test Supervsn W/Out I/R Completed Medical Devices Description No Information Available Encounters Type Date Location Provider Dx Diagnosis Office Visit 12/05/2019 [facility] Molina Sidhu, I42.9 Cardiomyopathy, 9:25a Of Vocational Placement Specialist DO FACC unspecified Z95.810 Presence of automatic (implantable) cardiac defibrillator Office Visit 12/04/2019 [facility] Molina Green Z01.810 Encounter for 4:22p [facility] Of DO [place] preprocedural [facility] cardiovascular examination K37 Unspecified appendicitis Z95.810 Presence of automatic (implantable) cardiac defibrillator R07.9 Chest pain, unspecified Office Visit 12/03/2019 [facility] K35.30 Acute appendicitis 7:00a [facility] with loc Vocational Placement Specialist peritonitis, w/o perf or gangr Office Visit 08/26/2019 Clive Wilson I42.2 Other hypertrophic 1:45p [facility] cardiomyopathy Vocational Placement Specialist AT [facility] I10 Essential (primary) hypertension Z95.810 Presence of automatic (implantable) cardiac defibrillator Assessments Date Code Description Provider 12/16/2019 K35.30 Acute appendicitis with localized Milton Phipps MD peritonitis, without perforation or gangrene 12/06/2019 K35.30 Acute appendicitis with localized Esequiel Corona MD, FACS peritonitis, without perforation or gangrene 12/05/2019 I42.9 Cardiomyopathy, unspecified Molina Sidhu, DO FACC 12/05/2019 Z95.810 Presence of automatic (implantable) Molina Sidhu, DO [facility] cardiac defibrillator 12/05/2019 K35.30 Acute appendicitis with localized JOSE Whitman peritonitis, without perforation or gangrene 12/05/2019 K35.30 Acute appendicitis with localized Milton Phipps MD peritonitis, without perforation or gangrene 12/04/2019 Z01.810 Encounter for preprocedural Molina Sidhu DO FAC cardiovascular examination 12/04/2019 K37 Unspecified appendicitis Molina Sidhu, DO FACC 12/04/2019 Z95.810 Presence of automatic (implantable) Molina SKristie Sidhu, DO FACC cardiac defibrillator 12/04/2019 R07.9 Chest pain, unspecified Molina Sidhu, DO FACC 12/04/2019 K35.30 Acute appendicitis with localized Pooja Richey MD peritonitis, without perforation or gangrene 12/03/2019 K35.30 Acute appendicitis with localized JOSE Whitman peritonitis, without perforation or gangrene 08/26/2019 I42.2 Other hypertrophic cardiomyopathy Bhupinder Pinto M.D. 08/26/2019 I10 Essential (primary) hypertension Bhupinder Pinto M.D. 08/26/2019 Z95.810 Presence of automatic (implantable) Bhupinder Pinto M.D. cardiac defibrillator Plan of Treatment 12/16/2019 - Milton Phipps MDK35.30 Acute appendicitis with localized peritonitis, without perforation or gangreneFollow up:None needed See return to work slip Call with any problems or concerns Functional Status Description No Information Available Mental Status Description No Information Available Referrals Description No Information Available
[2019-12-20 15:26] VITALS: BP 142/77
[2019-12-20 16:21] LABS: Influenza A Molecular Negative (Negative); Influenza B Molecular Negative (Negative)
--- NOTE | 2019-12-20 16:31 | UC ---
General HPI - HPI Summary HPI Summary: PATIENT ARRIVES TODAY WITH CONCERNS THAT HER INSULIN PUMP IS NOT WORKING. PATIENT CHECKS HER BLOOD SUGARS THROUGHOUT THE DAY, ENTERS THE VALUE INTO HER INSULIN PUMP WHICH THEN CALCULATES THE RECOMMENDED DOSAGE OF MEDICATION AND ADMINISTERS IT TO HER. SHE STATES THAT YESTERDAY SHE NOTICED THAT HER BLOOD SUGARS WERE NOT RESPONDING AND THAT AT ONE POINT SHE HAD AN ERROR MESSAGE ON HER PUMP. TODAY SHE WAS NOT GETTING ANY ERROR MESSAGES BUT HER SUGAR HAS CONTINUED TO INCREASE. STATES THAT WHEN SHE LAST CHECKED IT AT HOME IT WAS ABOUT 350. SHE REPORTS SHE NORMALLY RUNS AROUND 130 TO 150. OF NOTE SHE HAD AN APPENDECTOMY ABOUT 2 WEEKS AGO BUT SHE STATES THAT SHE IS HEALING WELL FROM THIS PROCEDURE AND HAS NO ABDOMINAL DISCOMFORT. SHE IS NOT HAVING ANY RESPIRATORY SYMPTOMS. DENIES DYSURIA, BACK PAIN, NAUSEA. CALLED HER PCP WHO ADVISED HER TO COME HERE TO THE URGENT CARE. - History of Current Complaint Chief Complaint: UCGeneralIllness Stated Complaint: HIGH BLOOD SUGAR Time Seen by Provider: 12/20/19 15:27 Hx Obtained From: Patient Hx Last Menstrual Period: None--not applicable. Onset/Duration: Gradual Onset, Lasting Days - 1 DAY, Still Present Onset Severity: Mild Current Severity: Mild Pain Intensity: 2 Associated Signs & Symptoms: Negative: Dizziness, Dysuria, Fever, Nausea, SOB, Vomiting, Wheezing, Weakness - Allergy/Home Medications Allergies/Adverse Reactions: Allergies Allergy/AdvReac Type Severity Reaction Status Date / Time No Known Allergies Allergy Verified 12/20/19 15:26 PMH/Surg Hx/FS Hx/Imm Hx Endocrine History: Diabetes Cardiovascular History: Hypertension Other History Of: Negative For: HIV, Hepatitis B, Hepatitis C, Anticoagulant Therapy - Surgical History Surgical History: Yes Surgery Procedure, Year, and Place: L knee arthroscopy. tonsillectomy. 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 - Family History Known Family History: Positive: Cardiac Disease - father and grandfather - MD. mother - CHF, Hypertension, Diabetes, Other - Brain cancer, Parkinson's - Social History Alcohol Use: Rare Substance Use Type: None Smoking Status (MU): Never Smoked Tobacco - Immunization History Most Recent Influenza Vaccination: 2019 Most Recent Tetanus Shot: unable to determine Most Recent Pneumonia Vaccination: "never had one" Review of Systems All Other Systems Reviewed And Are Negative: Yes Constitutional: Positive: Negative Respiratory: Positive: Negative Cardiovascular: Positive: Negative Gastrointestinal: Positive: Negative Physical Exam Triage Information Reviewed: Yes Appearance: Well-Appearing, No Pain Distress, Well-Nourished Vital Signs: Initial Vital Signs Temp 98.8 F 12/20/19 15:23 Pulse 70 12/20/19 15:23 Resp 20 12/20/19 15:23 BP 142/77 12/20/19 15:23 Pulse Ox 100 12/20/19 15:23 Laboratory Tests 12/20/19 12/20/19 12/20/19 15:48 16:10 16:15 POC Glucose (mg/dL) 363 H POC Urine Color Yellow POC Urine Clarity Clear POC Urine pH 5.5 POC Ur Specif [place] 1.020 POC Urine Protein 1+ A POC Ur Glucose (UA) 2+ A POC Urine Ketones Negative POC Urine Blood Negative POC Urine Nitrite Negative POC Urine Bilirubin Negative POC Urine Urobilinogen 0.2 POC U Leukocyte Esteras Negative Influenza A (Rapid) Negative Influenza B (Rapid) Negative Vital Signs Reviewed: Yes Eyes: Positive: Conjunctiva Clear ENT: Positive: Hearing grossly normal Neck: Positive: Supple Respiratory: Positive: No respiratory distress, No accessory muscle use Cardiovascular: Positive: Pulses Normal Abdomen Description: Positive: Soft Musculoskeletal: Positive: No Edema Neurological: Positive: Alert Psychological: Positive: Age Appropriate Behavior Skin: Negative: Rashes Course/Dx - Course Course Of Treatment: PATIENT ARRIVES WITH ELEVATED BLOOD GLUCOSE LIKELY DUE TO A MALFUNCTIONING INSULIN PUMP. SHE DOES NOT APPEAR TO HAVE ANY ACTIVE INFECTION. SHE IS NONTOXIC APPEARING. VITAL SIGNS ALL STABLE. NOT EXPERIENCING ANY DISCOMFORT. URINE DIP AND FLU SWAB NEGATIVE. SHE IS NOT EXPERIENCING ANY CHEST PAIN, SHORTNESS OF BREATH, NAUSEA, CHILLS, SWEATS. I HAVE PRESCRIBED A NOVOLOG PEN FOR HER TO USE UNTIL SHE IS ABLE TO GET HER INSULIN PUMP LOOKED AT. SHE FOLLOWS WITH THE [facility] IN [place] AND WILL CALL THEM FIRST THING SUNDAY MORNING. I ADVISED HER TO HAVE A LOW THRESHOLD FOR GOING TO THE EMERGENCY ROOM IF SHE IS NOT DOING WELL WITH SLIDING SCALE INSULIN. PATIENT STATES SHE HAS USED NOVOLOG IN THE PAST AND IS FAMILIAR WITH USING THE PEN. - Diagnoses Provider Diagnosis: Diabetes mellitus with hyperglycemia Discharge ED - Sign-Out/Discharge Documenting (check all that apply): Patient Departure All imaging exams completed and their final reports reviewed: No Studies - Discharge Plan Condition: Stable Disposition: HOME Prescriptions: Insulin Aspart [Novolog Penfill 100 units/ml 5 ml x 3 pens] 0 units SUBCUT QID # 3 cartridge Patient Education Materials: Diabetic Hyperglycemia (ED) Referrals: Ayana Gallo PA [Primary Care Provider] - 2 Days Additional Instructions: YOUR URINE TEST HAS GLUCOSE AND SOME PROTEIN WHICH IS EXPECTED GIVEN YOUR ELEVATED GLUCOSE READING BUT THERE IS NO SIGN OF URINARY TRACT INFECTION. FLU SWAB NEGATIVE. RX FOR NOVOLOG PEN SENT TO [facility]. COVER YOURSELF PER SLIDING SCALE FOLLOWS. 1 UNIT FOR EVERY 25 MG/DL OVER 125 MG/DL. IF YOU ARE RESPONDING BUT STILL HIGH INCREASE BY 1 ADDITIONAL UNIT AT THE NEXT DOSE. CALL THE [facility] FIRST THING SUNDAY MORNING TO ADVISE OF YOUR MALFUNCTIONING PUMP. GO TO THE ER WITHOUT FAIL IF YOUR GLUCOSE LEVELS ARE NOT RESPONDING TO THE NOVOLOG PEN OR IF YOU DEVELOP ABDOMINAL PAIN, FEVER, NAUSEA, SHORTNESS OF BREATH , DIZZINESS, WEAKNESS OR ANY OTHER CONCERNING SYMPTOMS. - Billing Disposition and Condition Condition: STABLE Disposition: Home
== END 2019-12-20 16:59 | disposition home or self-care (01) ==
LOC: UCEAST 15:01
DX: E11.65 Type 2 diabetes mellitus with hyperglycemia (principal); I10 Essential (primary) hypertension; Z96.41 Presence of insulin pump (external) (internal)
CPT/HCPCS: 81003; 99212; G0463